=== PATIENT | female | born 1945 | race Caucasian/White ===

== ENCOUNTER 2023-03-18 09:48 | Outpatient (AMB) | payer OTHER, SELFPAY ==
--- NOTE | 2023-03-18 09:57 | A.OFFVIS_ITS ---
Intake Vital Signs 03/18/23 09:58 Height 5 ft 2 in Weight 245 lb BMI 44.8 BP 136/78 Blood Pressure Location Rt brachial Position Sitting Pulse 60 Pulse Source Pulse Oximeter Pulse Oximetry (%) 98 Oxygen Delivery Method Room Air Intake Visit Reasons: ENP-Tremor Hand-CONFIRMED Intake Note: Patient presents for hand tremors my neurologist retired and I needed a new one, my hands have tremors. Allergies codeine Allergy (Severe, Verified 03/18/23 10:02) Confusion Penicillins Allergy (Unknown, Verified 03/18/23 10:02) swelling tongue Sulfa (Sulfonamide Antibiotics) Allergy (Unknown, Verified 03/18/23 10:02) Unknown Medication List - Last Reconciled 03/18/23 by MARQUIS Lockett aripiprazole 5 mg PO DAILY aspirin 81 mg PO DAILY bumetanide 1 mg PO BID calcium carbonate (Pedro-Gest Antacid) mg PO cholecalciferol (vitamin D3) 50 mcg PO DAILY clopidogrel 75 mg PO DAILY esomeprazole magnesium 20 mg PO DAILY fluconazole mg PO metoprolol tartrate 25 mg PO BID mirabegron ER (Myrbetriq) 50 mg PO DAILY pantoprazole 40 mg PO BID rosuvastatin 5 mg PO DAILY sertraline 100 mg PO DAILY HPI HPI Comments History of Present Illness Details 78- yr-old female presents for new pt ev aluation of movement disorder, specifically: tremor. She has had LUE tremor and freezing for several years now. Was previously seen by Dr Boston before he retired. She has never tried medications for the tremor. PMH significant for: Darius shoulder surgery- unsure when, anemia, arthritis, cancer, depression, GERD, hypertension, kidney disease, knee surgery. Pt is right handed. ADL status: Ind w/ ADLs. Lives in [facility] living apartment in [place]. Has 3 local children. 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 Pt does her shopping/groceries online. Manges her bills ind. Fine-motor skills: Can have difficulty w/ smaller buttons. Pt reports: Micrographia: Writing can be shaky- not sure if smaller. Hypophonia: She has not noticed any changes, but her voice can be hoarse. Hyposmia: States no sense of smell for a long time Dysphagia: Her throat closes at times w/ fluids and solids- has had a swallow study- was told age-related. Has never done MASS SPEC. Drooling: None Orthostatic lightheadedness: Sometimes, brief GI/: She has a colostomy s/p colon surgery 18 yrs ago- forgets exactly why- something like diverticulitis. Has some urinary incontinence Slowness: Slower- walking. Freezing episodes: Left hand freezes at times Tremor: She has rest and action tremor- notices more when eating. Head shakes at times- more so if cold. Stiffness: Denies Gait changes: Has been using a walker x's the past 3-4 yrs d/t her back pain worsening. Used a cane. Sleep difficulty: Sleep maintenance difficulties, wakes up to void. Denies snoring. Can talk in her sleep, denies other parasomnias. Has never had a sleep study- does not want to ever use a CPAP machine. Memory impairment: She states she keeps forgetting- for instance, she knows she has another appointment today but does not remember what time that appt is. Can forget some ones name she just met- she used to be good at that. 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 Mood: Pt states her mood is stable- PCP manages her psych meds. Hallucinations: She may see someone standing to her side- tehn looks again and does not see anyone there. This started 3 months ago. Denies hypnogenic hallucinations. Usual exercise: Walking. Other patient concerns include: She has low back pain w/ sciatica into BLE- currently more right sided. Has a spinal stimulator- self-monitors. Used to see Dr Villafana- last saw him a few years ago. Uses tylenol prn but does not help. Avoids NSIADs d/t CKD and Clopidogrel tx (for PVD). Has occasional headaches and dizziness. History of brain MRI? Does not think so- thinks her spinal stimulator is not MRI compatible. History of concussion/head injury? Denies History of neuroleptic (metoclopramide/antipsychotics) use? Has been on Abilify for a long time - started d/t severe depression and SI. History of psychiatric hospitalizations? Yes- in her 40s. History of cancer: Right breast cancer- s/p lumpectomy- no chemo/Rx tx. History of occupational chemical exposures? 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 None Family history of mood disorder or suicide? None [facility] Medical History (Updated 03/18/23 @ 19:12 by MARQUIS Lockett) Vitamin D deficiency Vitamin B12 deficiency Recurrent major depression Pernicious anemia Peripheral nerve disease Mitral valvular regurgitation Lumbar spondylolysis Left bundle branch block HTN (hypertension) HLD (hyperlipidemia) H/O methicillin resistant Staphylococcus aureus Hearing loss Gout GERD (gastroesophageal reflux disease) Female stress incontinence Cyst of ovary COPD (chronic obstructive pulmonary disease) Chronic back pain Atherosclerosis of both carotid arteries Atherosclerosis of aorta Aortic valve disorder Anxiety Anemia of chronic disease Allergic rhinitis Surgical History (Updated 03/18/23 @ 18:13 by MARQUIS Lockett) History of ileostomy Hx of appendectomy H/O shoulder surgery H/O knee surgery Hx of cholecystectomy Family History (Updated 03/18/23 @ 10:04 by TAMI Grajeda) Father History of heart attack Mother Cancer Brother Brain cancer Social History (Updated 03/18/23 @ 10:04 by TAMI Grajeda) Alcohol intake: never Patient Tobacco Use Status: Never used Tobacco Review of Systems Const Details: Blurry vision, glasses Hearing loss, sinus problems, trouble swallowing Shortness of breath, hoarseness Itching Difficulty walking, weakness, occasional headaches, occasional dizziness Anxiety and depression Frequent urination, urinary incontinence Joint pain, back pain, leg cramping Physical Exam Vital Signs: Last Vital Signs Pulse 60 03/18/23 09:58 BP 136/78 03/18/23 09:58 Pulse Ox 98 03/18/23 09:58 Oxygen Delivery Method Room Air 03/18/23 09:58 BMI result Body Mass Index 44.8 Const General: cooperative and no acute distress Resp Effort & Inspection: normal respiratory effort and able to speak in complete sentences Neuro Other: General: A&O x's 3 w/ mild memory lapses. Expression: Decreased expression and blink, slight left facial droop Voice: Soft Tremor: LUE rest, BUE postural L > R mild tremor Tone: Very mild tightness in Darius elbows Dyskinesia: None FFM: BU, Left more so, decreased Foot taps: BLE decreased Gait: Slow to stand, uses hands to psuh self up, slight stoop, left shoulder drooped, very short steps w/ low floor clearance, cannot initiate turning w/o walker. With walker- slight stoop, but better steps, higher foot steps. Psych: Pleasant affect. Deep tendon reflexes (DTR's): Right triceps reflex intensity grade: 2+, Left triceps reflex intensity grade: 2+, Rt Biceps (C5, C6): 2+, Left biceps reflex intensity grade: 2+, Right brachioradialis reflex intensity grade: 2+, Left brachioradialis reflex intensity grade: 2+, Right patellar reflex intensity grade: 1+ and Left patellar reflex intensity grade: 1+ Psych Mental Status: mental status grossly normal Speech and movement: Normal speech and movement present Affect: normal affect Attitude: cooperative Thought process: Normal thought process present Results Reviewed Results Reviewed: 02/19/23 10:36 02/12/23 10/15/22 08/02/22 05/01/22 WBC 8.0 RBC 3.39 Hgb?10.3 Hct 31.9 MCV 94.1 MCH 30. MCHC 32.3 Platelet Count 215 RDW-SD 44.3 MPV 9.6 Nucleated RBC (Automated) 0.0 -CHEMISTRY Sodium 138 Potassium 4.6 Chloride 103 Bicarbonate Level 25 Anion Gap 10 Glucose Level 80 BUN 40 Creatinine-Blood?2.6 Estimated GFR Creatinine 19 Calcium 9.1 Phosphorus 3.5 Magnesium 2.0 Protein, Total 6.8 Albumin 4.2 AG Ratio 1.6 Alkaline Phosphatase 105 AST (SGOT)13 ALT (SGPT) 6 Bilirubin, Total 0.3 Uric Acid ?9.7 PTH, Intact 324 25 OH-Vitamin D Level 35 CRP 2.1 ESR 65 TSH 2.30 B12 441 cholesterol 150 Triglycerides 94 HDL 66 LDL 65 Non HDL 84 Folate > 40 Assessment & Plan Assessment & Plan (1) Movement disorder: Code(s): G25.9 - Extrapyramidal and movement disorder, unspecified (2) Tremor: Code(s): R25.1 - Tremor, unspecified (3) Hallucinations: Code(s): R44.3 - Hallucinations, unspecified (4) Memory difficulties: Code(s): R41.3 - Other amnesia (5) Gait difficulty: Code(s): R26.9 - Unspecified abnormalities of gait and mobility Plan Discussed that pt's constellation of tremor, gait changes, cognitive changes, hallucinations, do raise concern for a movement disorder, such as Parkinson's or a secondary Parkinsonism d/t chronic neuroleptic use and h/o psychiatric hospitalization or possibly a intracerebral CV injury w/in the basal ganglia, as pt has significant CV risk factors of HTN, HLD, artherosclerosis, PVD. Also reviewed that gait, cognitive, and urinary incontinence s/s may reflect an underlying NPH. Pt advised to undergo head CT as pt states her spinal stimulator is not MRI compatible- however, pt would like to wait at this time, as she has multiple upcoming medical appts/tests. Will initiate an order for baseline neuro-psych evaluation- as pt is concerned regarding her memory issues (note her has a dx of FTD)- pt agrees to do this. Reviewed recent labs- will check B12, folate, MMA, homocysteine- as previous B- 12 is low normal and pt has listed dx of b12 def/pernicious anemia although I do not see that she is currently on B-12 supplement. She is f/b cardiology and nephrology. She is not interested in trialing dopaminergic/tremor tx at this time. Continue to walk w/ walker. Pt asked to write down any questions she may have prior to the f/u appt. Future considerations- Sleep study- pt declines at this time, Etelvina, Orders: Orders Methylmalonic Acid 03/18/23 D51.0 - Vitamin B12 deficiency anemia due to intrinsic factor deficiency Vitamin B12 and Folate 03/18/23 D51.0 - Vitamin B12 deficiency anemia due to intrinsic factor deficiency Homocysteine 03/18/23 D51.0 - Vitamin B12 deficiency anemia due to intrinsic factor deficiency Referrals Neuropsychiatry Referral R41.3 - Other amnesia, R44.3 - Hallucinations, unspecified, G25.9 - Extrapyramidal and movement disorder, unspecified, F33.9 - Major depressive disorder, recurrent, unspecified Coding Level of Care Code New Pt Level 4 (28334) Diagnoses Movement disorder G25.9 Tremor R25.1 Hallucinations R44.3 Memory difficulties R41.3 Gait difficulty R26.9
[2023-03-18 09:58] VITALS: BP 136/78; PULSE 60; O2SAT 98; BMI 44.8
== END 2023-03-18 11:28 | disposition home or self-care (01) ==
PROVIDERS: PCP Internal Medicine; Visit Provider Nurse Practitioner Family
DX: G25.9 Extrapyramidal and movement disorder, unspecified (principal); R44.3 Hallucinations, unspecified; R41.3 Other amnesia; R26.9 Unspecified abnormalities of gait and mobility
CPT/HCPCS: 99204

== ENCOUNTER → 2023-03-18 09:48 | Outpatient (BNVA) | payer OTHER, SELFPAY | PROVIDERS: PCP Internal Medicine; Visit Provider Nurse Practitioner Family ==

== ENCOUNTER 2023-06-17 12:56 | Outpatient (AMB) | payer OTHER, SELFPAY ==
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
[2023-06-17 13:13] VITALS: BP 150/90; BMI 44.8
== END 2023-06-17 14:20 | disposition home or self-care (01) ==
PROVIDERS: PCP Internal Medicine; Visit Provider Nurse Practitioner Family
DX: G25.9 Extrapyramidal and movement disorder, unspecified (principal); R26.9 Unspecified abnormalities of gait and mobility; R41.3 Other amnesia; D64.9 Anemia, unspecified
CPT/HCPCS: 99214; G2211

== ENCOUNTER 2023-06-17 12:56 | Outpatient (REF) | payer OTHER, SELFPAY ==
[2023-06-17 16:57] LABS: MANUAL DIFF FLAG NO
[2023-06-17 16:59] LABS: Basophils Absolute Auto 0.1 X10*3/uL (0.0-0.2); Basophils Percent Auto 1.3 % (0-2); Eosinophils Absolute Auto 0.5 X10*3/uL (0.0-0.4); Eosinophils Percent Auto 8.2 % (0-4); Hematocrit 33.5 % (37.0-47.0); Hemoglobin 11.1 g/dl (12.0-16.0); Imm Gran Abs Auto 0.01 X10*3/uL (0.00-0.03); Imm Gran Pct Auto 0.2 % (0.0-0.4); Lymphocytes Absolute Auto 1.2 X10*3/uL (1.2-4.9); Lymphocytes Percent Auto 19.1 % (20-40); Mean Corpuscular HGB Conc 33.1 g/dl (31.0-35.0); Mean Corpuscular Hemoglobin 30.7 pg (27.0-33.0); Mean Corpuscular Volume 92.5 fL (80.0-98.0); Mean Platelet Volume 8.7 fL (9.4-12.3); Monocytes Absolute Auto 0.4 X10*3/uL (0.1-1.2); Monocytes Percent Auto 6.5 % (2-11); Neutrophils Absolute Auto 3.9 x10*3/uL (2.0-8.3); Neutrophils Percent Auto 64.7 % (45-73); Platelet Count 218 X10*3/uL (160-400); Red Blood Count 3.62 X10*6/uL (4.20-5.50); Red Cell Distribution Width 13.3 % (11.0-16.0)
[2023-06-17 17:29] LABS: Alanine Aminotransferase < 5 U/L (0-31); Albumin Level 4.3 g/dL (3.5-5.0); Alkaline Phosphatase 121 U/L (39-117); Anion Gap 17 (12-20); Aspartate Amino Transferase 15 U/L (5-31); Bilirubin Total 0.4 mg/dL (0.0-1.0); Blood Urea Nitrogen 39 mg/dL (9-16); Calcium 10.2 mg/dL (8.4-10.2); Carbon Dioxide 22 mmol/L (22-29); Chloride 102 mmol/L (96-108); Estimated Glomerular Filt Rate 21; Glucose Random 95 mg/dL (60-115); Iron 69 mcg/dL (30-160); Magnesium 2.1 mg/dL (1.6-2.6); Percent Iron Saturation 25 % (15-50); Potassium 4.3 mmol/L (3.3-5.1); Sodium 137 mmol/L (135-145); Total Iron Binding Capacity 281 mcg/dL (228-428); Total Protein 7.9 g/dL (6.5-8.0); Unsaturated Iron Binding 212 ug/dL
[2023-06-17 17:43] LABS: Ferritin 161 ng/mL (10-250)
[2023-06-17 17:56] LABS: Folate 15.6 ng/mL (> or = 4.0); Vitamin B12 470 pg/mL (200-900)
[2023-06-20 05:29] LABS: Methylmalonic Acid 278 nmol/L (87-318)
== END 2023-06-17 12:57 | disposition home or self-care (01) ==
LOC: HO.HKASLDS 12:56
PROVIDERS: PCP Internal Medicine; Visit Provider Nurse Practitioner Family
DX: D51.0 Vitamin B12 deficiency anemia due to intrinsic factor deficiency (principal); D64.9 Anemia, unspecified; R25.2 Cramp and spasm
CPT/HCPCS: 36415; 80053; 82550; 82607; 82728; 82746; 83540; 83735; 83921; 85025

== ENCOUNTER 2024-02-24 09:58 | Outpatient (AMB) | payer OTHER, SELFPAY ==
[2024-02-24 10:18] VITALS: PULSE 86; O2SAT 97; BMI 45.5
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
== END 2024-02-24 11:21 | disposition home or self-care (01) ==
PROVIDERS: PCP Internal Medicine; Visit Provider Nurse Practitioner Family
DX: G25.9 Extrapyramidal and movement disorder, unspecified (principal); R26.9 Unspecified abnormalities of gait and mobility; R41.3 Other amnesia; D64.9 Anemia, unspecified
CPT/HCPCS: 99214; G2211

== ENCOUNTER 2024-07-06 12:49 | Outpatient (AMB) | payer OTHER, SELFPAY ==
--- NOTE | 2024-07-06 12:51 | MHC.OFFVIS ---
Vital Signs 07/06/24 12:56 Height 5 ft 2 in Weight 249 lb BMI 45.5 BP 140/72 H Blood Pressure Location Rt brachial Position Sitting Pulse 76 Pulse Source Pulse Oximeter Pulse Oximetry (%) 97 Oxygen Delivery Method Room Air Intake Visit Reasons: 6 mo follow up Intake Note: Patient presents for follow up meed adjustment carbidopa levodopa Allergies codeine Allergy (Severe, Verified 07/06/24 12:57) Confusion Penicillins Allergy (Unknown, Verified 07/06/24 12:57) swelling tongue Sulfa (Sulfonamide Antibiotics) Allergy (Unknown, Verified 07/06/24 12:57) Unknown Medication List - Last Reconciled 07/06/24 by MARQUIS Lockett allopurinol 400 mg PO DAILY aripiprazole 5 mg PO DAILY aspirin 81 mg PO DAILY bumetanide 1 mg PO BID calcium carbonate (Pedro-Gest Antacid) mg PO carbidopa-levodopa 25-100 mg 1.5 tabs PO TID 30 days cholecalciferol (vitamin D3) 50 mcg PO DAILY clopidogrel 75 mg PO DAILY cyanocobalamin (vitamin B-12) 100 mcg PO DAILY 90 days hydroxyzine HCl 10 mg PO BEDTIME PRN magnesium oxide 200 mg PO DAILY metoprolol tartrate 50 mg PO BID mirabegron ER (Myrbetriq) 50 mg PO DAILY pantoprazole 40 mg PO BID rosuvastatin 5 mg PO DAILY sertraline 100 mg PO DAILY torsemide 20 mg PO BID HPI Comments Details: 79-yr-old female presents for f/u visit of movement d/o. Pt reports she broke her right foot 2 weeks ago at her dentist's office. States she was standing up after toileting, pulling up her pants, when all of a sudden she lost full control of her legs and they just gave out, she tried to prevent herself from falling by grabbing the grab bars but she could not hold on, and just fell. She required assist from the dental staff to get up. She went home via her transportation and then went to [facility]. She was given a walking shoe and advised to f/u with her ortho. Initially she was using her w/c more. She states ortho advised her to continue using the walking shoe and start walking w/ her walker again. Taking CD-LD IR 25-100mg 1.5 tabs po 3 x's per day since last visit (increased from 1 tab t.i.d.), which she feels helped some. ADL's: Ind but slower. She has a SUPERVISOR ABATTOIR twice a week, who helps w/ home care. Swallowing: Continues to have difficulty swallowing, states cannot eat for long before her throat closes up on her- she is still waiting to have a f/u MBS through GI, [facility]/Dr Duckworth. Voice: Hoarseness- ENT felt this was r/t h/o lung resection. Drooling: Denies Orthostatic lightheadedness: Sometimes, usually brief. Taking 4 20oz bottles of water per day. Constipation: Has an ostomy Urinary symptoms: urinary frequency- thinks it is a bit more, so she is prone to skipping her diuretic tx. Tremor: Tremor is a bit better. Dyskinesia: States her LLE will jump on its own, but had BLE involuntary leg movements at night. Stiffness: Denies stiffness. Legs can cramp/tighten when elevating them, resolves with putting her legs down. Gait changes: States her gait varies- some days better than others, still affected by her BLE edema- using a BLE compression device but she is not sure it helps. Maybe prone totrip on her own feet but not fall. She is f/b pulmonology/cardiology. Uses a walker. Seated walker was not helpful. Freezing: Denies Falls: Denies any other interval falls. Mood: Ok Hallucinations: Is now seeing things that are not there which is freaking me out - sees people, a horse- now during the night and day. Memory: Feels memory is not good- feels forgetful. She previously had neuropsych eval, which did show cognitive deficits that did not meet criteria for a major neurocognitive d/o, though possibility was raised that her presentation could be seen in Parkinsonian d/o's. Sleep: Sleeping is worse, sleeping 1-2 hours and then up for 1-2 hours. Overall states not sleeping > 2-3 hours. Denies daytime naps. Exercise: None. Still walking to the dining room, to the mailroom. Other: The other day, she had an isolated sensation of Right leg feeling like it was in a knot and then jsut let go (did not last long), while sitting w/ legs elevated in the evening. [facility] Medical History Vitamin D deficiency Vitamin B12 deficiency Recurrent major depression Pernicious anemia Peripheral nerve disease Mitral valvular regurgitation Lumbar spondylolysis Left bundle branch block HTN (hypertension) HLD (hyperlipidemia) H/O methicillin resistant Staphylococcus aureus Hearing loss Gout GERD (gastroesophageal reflux disease) Female stress incontinence Cyst of ovary COPD (chronic obstructive pulmonary disease) Chronic back pain Atherosclerosis of both carotid arteries Atherosclerosis of aorta Aortic valve disorder Anxiety Anemia of chronic disease Allergic rhinitis Surgical History History of ileostomy Hx of appendectomy H/O shoulder surgery H/O knee surgery Hx of cholecystectomy Family History Father History of heart attack Mother Cancer Brother Brain cancer Social History Alcohol intake: never Patient Tobacco Use Status: Never used Tobacco Physical Exam Vital Signs: Last Vital Signs Pulse 76 07/06/24 12:56 BP 140/72 H 07/06/24 12:56 Pulse Ox 97 07/06/24 12:56 Oxygen Delivery Method Room Air 07/06/24 12:56 BMI result Body Mass Index 45.5 Const General: cooperative and no acute distress Resp Effort & Inspection: normal respiratory effort and able to speak in complete sentences Neuro Other: General: A&O x's 3 Expression: Slightly improved decreased expression and blink, slight left facial droop Voice: Soft, hoarse Tremor: No LUE rest tremor today. BUE postural L > R mild tremor Tone: NVery mild LUE tone today Dyskinesia: Mild LLE intermittent dyskinesia FFM: BUE decreased, Left more so, Foot taps: LLE bradykineisa- improved today. Did not assess RLE d/t recent foot Fx. Gait: Slow to stand, uses hands to push self up, slight stoop, left shoulder drooped, short steps with low floor clearance with walker. Psych: Pleasant affect. Assessment & Plan Assessment & Plan (1) Movement disorder: Code(s): G25.9 - Extrapyramidal and movement disorder, unspecified Category: Medical (2) Muscle cramps: Code(s): R25.2 - Cramp and spasm Category: Medical (3) Tremor: Code(s): R25.1 - Tremor, unspecified Category: Medical (4) Gait difficulty: Code(s): R26.9 - Unspecified abnormalities of gait and mobility Category: Medical (5) Memory difficulties: Code(s): R41.3 - Other amnesia Category: Medical Plan Patient has had a positive response to levodopa therapy. This may be seen in idiopathic Parkinson's disease. But we may see benefit in neuroleptic-induced parkinsonism as well. Patient is not interested in undergoing head CT or a DaTSCAN at this time. We will continue to monitor clinically. Concur w/ f/u MBS. F/u w/ ENT as scheduled. Follow-up with cardiology and nephrology as scheduled. Reviewed neuro-psych report- no current indications of a major neurocognitive disorder, consider follow-up testing in next 12-18 months. (note her has a dx of FTD). Continue vitamin B12 supplementation. Stop carbidopa levodopa 25-100 mg- 1.5 tabs TID- as patient having lower extremity dyskinesias and increased hallucinations- both of which are bothersome to her. Start carbidopa levodopa ER 25-100 mg- 2 tabs prior to breakfast and 1 tab prior to both lunch and dinner. Continue to walk w/ walker. Previously discussed strategies to reduce risk for falls- step in place and stand up slowly, when turning- turn upper and lower body together, use adaptive equipment such as long handled brooms/mops/dustpan or plates/utensils that can reduce risk for spillage. Future considerations- Sleep study- pt has previously declined, CT head, DaTscan, Medications: New carbidopa-levodopa 25-100 mg ER 2 tabs before breakfast, and 1 tab before lunch and dinner. orally 30 minutes before meal/protein.; 120 tabs 6RF 30 days Discontinued carbidopa-levodopa 25-100 mg take w/ a cracker 30 minutes before breakfast, lunch, and dinner, Discontinued Reason: Doctor's Order 1.5 tabs PO TID 30 days 135 tabs 6RF Coding Level of Care Code Est Pt Level 4 (18816) Diagnoses Movement disorder G25.9 Muscle cramps R25.2 Tremor R25.1 Gait difficulty R26.9 Memory difficulties R41.3
[2024-07-06 12:56] VITALS: BP 140/72; PULSE 76; O2SAT 97; BMI 45.5
--- OUTSIDE RECORDS SUMMARY | 2024-07-06 13:28 | XMS_ITS ---
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 Past Plans ONCOLOGY INFUSION THERAPY Plan Name Start Date Discontinue Date Treatment Medications Discontinue Reason Plan Provider [facility] DENOSUMAB 60MG (PROLIA) 04/11/2022 11/02/2023 denosumab (PROLIA) Therapy Complete Lauri Lovett MD Radiation Treatments * No radiation treatments are documented for this patient in [facility]. Treatments may have been administered in another system.
--- OUTSIDE RECORDS SUMMARY | 2024-07-06 13:28 | XMS_ITS | Clinical Summary ---
Author Organization [facility] Address [address] [place] [address] Care Team Providers Care Dye Penetrant Testing Technician Name Role Phone Emma Lanza MD Primary Care Provide r Allergies Active Allergy Reactions Criticality Noted Date Comments Flurbiprofen 03/03/2019 Codeine 03/03/2019 Latex 03/03/2019 Penicillins 03/03/2019 Sulfate 03/03/2019 Vancomycin 03/03/2019 Medications Medication Sig Dispensed Refills Start Date End Date Status gabapentin (NEURONTIN) 300 MG capsule Take 300 mg by mouth 3 (three) times a day. 0 Active gabapentin (NEURONTIN) 100 MG capsule Take 100 mg by mouth 3 (three) times a day. 0 Active omeprazole (PriLOSEC) 20 MG capsule Take 20 mg by mouth daily. 0 Active Cetirizine HCl 10 MG CAPS Take 10 mg by mouth. 0 Active ARIPiprazole (ABILIFY) 5 MG tablet Take 1 tablet (5 mg total) by mouth daily. 2.5mg daily 0 Active Cholecalciferol 125 MCG (5000 UT) capsule Take 5,000 Units by mouth daily. 0 Active DULoxetine (CYMBALTA) DR capsule 60 mg Take 60 mg by mouth daily. 0 Active metoprolol tartrate (LOPRESSOR) 25 MG tablet Take 1 tablet (25 mg total) by mouth 2 (two) times a day. 0 Active pantoprazole (PROTONIX) 40 MG tablet Take 1 tablet (40 mg total) by mouth every morning on an empty stomach. 0 Active aspirin EC 81 MG tablet Take 1 tablet (81 mg total) by mouth daily. 0 Active torsemide (DEMADEX) 20 MG tablet Take 20 mg by mouth daily. 0 Active ferrous sulfate 325 (65 FE) MG tablet Take 325 mg by mouth every morning with breakfast. 0 Active Multiple Vitamins-Minerals (PRESERVISION AREDS 2) CAPS Take by mouth. 0 Active oxyCODONE (ROXICODONE) 5 MG immediate release tablet Take 1 tablet (5 mg total) by mouth every 4 (four) hours as needed for pain. 0 Active allopurinol (ZYLOPRIM) 100 MG tablet Take 1 tablet (100 mg total) by mouth daily. 0 Active potassium bicarb-citric acid 20 MEQ TBEF Take by mouth. 0 Active furosemide (LASIX) 20 MG tablet Take 20 mg by mouth 2 (two) times a day. 0 Active sucralfate (CARAFATE) 1 g tablet Take 1 tablet (1 g total) by mouth 2 (two) times a day. 0 Active sodium chloride 1 g tablet Take 1 g by mouth 3 (three) times a day. 0 Active bumetanide (BUMEX) 1 MG tablet Take 1 tablet (1 mg total) by mouth daily. 0 Active rosuvastatin (CRESTOR) tablet 5 mg Take 1 tablet (5 mg total) by mouth daily. 0 Active sertraline (ZOLOFT) 50 MG tablet Take 1 tablet (50 mg total) by mouth daily. 0 Active magnesium oxide 400 (240 Mg) MG TABS tablet Take 1 tablet (400 mg total) by mouth 2 (two) times a day. 0 Active Fluticasone-Umeclidin- Vilant (Trelegy Ellipta) 100-62.5-25 MCG/ACT AEPB Trelegy Ellipta 0 Active Mirabegron ER (Myrbetriq) 50 MG TB24 Take by mouth daily. 0 Active clopidogrel (PLAVIX) 75 MG tablet Take 1 tablet (75 mg total) by mouth daily. 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) 03/06/2019 Social History Tobacco Use Types Packs/Day Years Used Date Smoking Tobacco: Never Assessed Sex and Gender Information Value Date Recorded Sex Assigned at Female 10/07/2022 4:42 PM EDT Gender Identity Not on file Sexual Orientation Not on file Job Start Date Occupation Industry Not on file Not on file Not on file Last Filed Vital Signs Vital Sign Reading Time Taken Comments Blood Pressure 131/48 04/15/2023 11:31 AM EST Pulse 60 04/15/2023 11:31 AM EST Temperature 36.4 ??C (97.5 ??F) 04/15/2023 1 1:31 AM EST Respiratory Rate - - Oxygen Saturation 98% 04/15/2023 11: 31 AM EST Inhaled Oxygen Concentration - - Weight 107.2 kg (236 lb 6.4 oz) 024 11:31 AM EST Height 157.5 cm (5' 2 ) 04/15/2023 11:3 1 AM EST Body Mass Index 43.24 04/15/2023 11:31 AM EST Plan of Treatment Health Maintenance Due Date Last Done Comments Hepatitis C Screening 1945 Depression Screening 1958 BMI Counseling 01/10/1964 Preventative Health Evaluation 01/10/1964 DTap / Tdap / Td (1 - Tdap) 1965 Shingrix-Zoster Vaccine (1 of 2) 1965 Fall Risk Assessment 2011 Osteoporosis Screening (DEXA Scan) 2011 RSV Adult > 60+ Yrs or (1 - 1-dose 75+ series) 2021 COVID-19 Vaccine ( season) 2023 12/24/2020, 03/20/2020, 02/28/2020 Influenza Vaccine (#1) 2023 , 11/16/2018, 11/11/2018, Additional history exists Pneumococcal Vaccine Completed 10/27/2017, 07/17/2015, 11/05/2014, Additional history exists Hepatitis B Vaccines Aged Out No long er eligible based on patient's age to complete this topic RSV Ped < 20 months Aged Out No longe r eligible based on patient's age to complete this topic Care Teams Dye Penetrant Testing Technician Relationship Specialty Start Date End Date Emma Lanza MD PCP - General Internal Medicine 03/03/19
--- OUTSIDE RECORDS SUMMARY | 2024-07-06 13:28 | XMS_ITS | Clinical Summary ---
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 Out No long er eligible based on patient's age to complete this topic IPV Vaccines Aged Out No longer eligi ble based on patient's age to complete this topic MMR Vaccines Aged Out No longer eligi ble based on patient's age to complete this topic Meningococcal ACWY Vaccine Aged Out N o longer eligible based on patient's age to complete this topic Meningococcal B Vaccine Aged Out No l onger eligible based on patient's age to complete this topic RSV Immunization Patients Under 20 months Aged Out No longer eligible based on patient's age to complete this topic Varicella Vaccines Aged Out No longer eligible based on patient's age to complete this topic Medical Devices Implanted Type Area Latin Professor Device Identifier Shelf Expiration Date Model / Serial / Lot Implants Implants N/A: Back Implants Implants Left: Hip Joints Knee Joints Knee Bilateral : Knee Procedures Procedure Name Priority Date/Time Associated Diagnosis Comments ECG 12-LEAD Routine 07/06/2024 8:27 AM EDT Left bundle branch block (LBBB) SST - GOLD Routine 06/24/2024 5:43 AM EDT EXTRA TUBES Routine 06/24/2024 5:43 AM EDT CBC WITH AUTO DIFFERENTIAL Routine 06/24/2024 5:43 AM EDT ACTIVATED PARTIAL THROMBOPLASTIN TIME Routine 06/24/2024 5:43 AM EDT CBC AND DIFFERENTIAL Routine 06/24/2024 5:43 AM EDT PROTHROMBIN TIME WITH INR Routine 06/24/2024 4:35 AM EDT BASIC METABOLIC PANEL Routine 06/24/2024 4:35 AM EDT COMPLETE BLOOD COUNT STAT 06/23/2024 5:38 PM EDT COMPLETE BLOOD COUNT Timed 06/23/2024 12:[address] ABDOMEN PELVIS WO CONTRAST Routine 06/23/2024 12:02 PM EDT BASIC METABOLIC PANEL Routine 06/23/2024 5:51 AM EDT COMPLETE BLOOD COUNT Timed 06/23/2024 5:51 AM EDT COMPLETE BLOOD COUNT Timed 06/22/2024 11:54 PM EDT COMPLETE BLOOD COUNT Timed 06/22/2024 5:38 PM EDT CREATININE, SERUM Routine 06/22/2024 10:52 AM EDT CBC WITH AUTO DIFFERENTIAL Timed 06/22/2024 10:51 AM EDT CBC AND DIFFERENTIAL Timed 06/22/2024 10:51 AM EDT TISSUE EXAM Routine 06/22/2024 9:31 AM EDT Postmenopausal bleeding Endometrial thickening on ultrasound TH AN LMA(NO CHARGE) Routine 06/22/2024 9:00 AM EDT CA CYSTOURETHROSCOPY 06/22/2024 8:36 AM EDT Postmenopausal bleeding Endometrial thickening on ultrasound Asymptomatic microscopic hematuria Special Needs 75 minutes CA HYSTEROSCOPY W/BIOPSY ENDOMETRIUM AND/OR POLYPECTOMY W/O AND/OR W/D&C 06/22/2024 8:36 AM EDT Postmenopausal bleeding Endometrial thickening on ultrasound Asymptomatic microscopic hematuria Special Needs 75 minutes ANTIBODY IDENTIFICATION Routine 06/23/19 25 7:43 AM EDT Postmenopausal bleeding Endometrial thickening on ultrasound CBC WITH AUTO DIFFERENTIAL Routine 06/22/2024 7:43 AM EDT Postmenopausal bleeding Endometrial thickening on ultrasound TYPE AND SCREEN Routine 06/22/2024 7:43 AM EDT Postmenopausal bleeding Endometrial thickening on ultrasound CBC AND DIFFERENTIAL Routine 06/22/2024 7:43 AM EDT Postmenopausal bleeding Endometrial thickening on ultrasound CA ENDOMETRIAL SAMPLING W/WO ENDOCERVICAL SAMPLING W/O CERVICAL DILATION Routine 06/10/2024 12:50 AM EDT Post-menopausal bleeding MARTELL URINE CULTURE TUBE Routine 05/24/19 11:52 AM EDT Hematuria, unspecified type URINALYSIS WITH REFLEX MICROSCOPIC AND CULTURE Routine 05/23/2024 11:52 AM EDT Hematuria, unspecified type URINALYSIS WITH REFLEX MICROSCOPIC AND CULTURE Routine 05/23/2024 11:52 AM EDT Hematuria, unspecified type TISSUE EXAM Routine 05/23/2024 11:50 AM EDT Post-menopausal bleeding VAS US DUPLEX CAROTID BILATERAL Routine 05/11/2024 12:53 PM EDT Asymptomatic bilateral carotid artery stenosis HISTORICAL IMAGING SCAN RESULT 04/27/2024 TRANSTHORACIC ECHOCARDIOGRAM (TTE) COMPLETE Routine 04/25/2024 12:53 PM EDT Chronic heart failure with preserved ejection fraction (CMS/HCC V24, CMS/HCC V28) Pulmonary hypertension (CMS/HCC V24, CMS/HCC V28) from Last 3 Months Results * ECG 12 lead (07/06/2024 8:27 AM EDT) us Kaley Duque NP ECG ORDERABLES Final Result GEMUSE * SST tube (06/24/2024 5:43 AM EDT) Extra Tube Hold for add-ons. 06/24/2024 8:01 AM EDT [facility] ([facility] Comment:Auto resulted. Blood Venous blood specimen / Unknown 06/24/2024 5:43 AM EDT 06/24/2024 7:00 AM EDT us Jeanne Gonzales MD LAB BLOOD ORDERABLES Final Resul t [facility] [address] [place] [address], [place] [phone] * (ABNORMAL) CBC auto differential (06/24/2024 5:43 AM EDT) Only the most recent of3 resultswithin the time period is included. WBC 8.3 4.8 - 10.8 K/mcL LAB HEMETOLOGY METHOD 06/24/2024 7:11 AM EDT [facility] RBC 2.60(L) 3.80 - 4.80 M/mcL LAB HEMETOLOGY METHOD 06/24/2024 7:11 AM [facility] Hemoglobin 8.3(L) 11.5 - 16.0 g/dL LAB HEMETOLOGY METHOD 06/24/2024 7:11 AM [facility] Hematocrit 25.3(L) 35.0 - 47.0 % LAB HEMETOLOGY METHOD 06/24/2024 7:11 AM EDT [facility] MCV 97.3 79.0 - 98.0 FL LAB HEMETOLOGY METHOD 06/24/2024 7:11 AM EDT [facility] MCH 31.9 27.0 - 32.0 pcg LAB HEMETOLOGY METHOD 06/24/[facility]24 7:[facility] MCHC 32.8 32.0 - 37.0 g/dL LAB HEMETOLOGY METHOD 06/24/2024 7:11 AM [facility] RDW 14.6 11.0 - 15.0 % LAB HEMETOLOGY METHOD 06/24/2024 7:11 AM [facility] Platelets 182 130 - 400 K/mcL LAB HEMETOLOGY METHOD 06/24/2024 7:11 AM [facility] MPV 9.0 7.0 - 11.0 FL LAB HEMETOLOGY METHOD 06/24/2024 7:11 AM [facility] NRBC 0.0 <1.0 % LAB HEMETOLOGY METHOD 06/24/2024 7:11 AM [facility] NRBC Absolute 0.00 <0.10 K/mcL LAB HEMETOLOGY METHOD 06/24/2024 7:11 AM [facility] Neutrophils Relative 72.9 % LAB HEMETOLOGY METHOD 06/24/2024 7:11 AM [facility] Lymphocytes Relative 14.0 % LAB HEMETOLOGY METHOD 06/24/2024 7:11 AM [facility] Monocytes Relative 7.1 % LAB HEMETOLOGY METHOD 06/24/2024 7:11 AM [facility] Eosinophils Relative 4.8 % LAB HEMETOLOGY METHOD 06/24/2024 7:11 AM [facility] Basophils Relative 0.7 % LAB HEMETOLOGY METHOD 06/24/2024 7:11 AM [facility] Immature Granulocytes Relative 0.5 % LAB HEMETOLOGY METHOD 06/24/2024 7:11 AM [facility] Neutrophils Absolute 6.02 1.50 - 7.00 K/mcL LAB HEMETOLOGY METHOD 06/24/2024 7:11 AM [facility] Lymphocytes Absolute 1.16 1.00 - 5.00 K/mcL LAB HEMETOLOGY METHOD 06/24/2024 7:11 AM [facility] Monocytes Absolute 0.59 0.20 - 1.00 K/mcL LAB HEMETOLOGY METHOD 06/24/2024 7:11 AM [facility] Eosinophils Absolute 0.40 0.00 - 0.50 K/mcL LAB HEMETOLOGY METHOD 06/24/2024 7:11 AM EDT [facility] Basophils Absolute 0.06 0.00 - 0.20 K/[facility] LAB HEMETOLOGY METHOD 06/24/2024 7:11 AM EDT [facility] Immature Granulocytes Absolute 0.04(H) 0.00 - 0.03 K/[facility] LAB HEMETOLOGY METHOD 06/24/2024 7:11 AM EDT [facility] Blood Venous blood specimen / Unknown Venipuncture / Unknown 06/24/2024 5:43 AM EDT 06/24/2024 6:59 AM EDT Radha DANIELS LAB BLOOD ORDERABLES Final Res ult Performing Organization Address [facility]/ZIP Co de Phone Number [facility] [address] [place] [address], [place] [phone] * Activated partial thromboplastin time (06/24/2024 5:43 AM EDT) aPTT 28.7 24.1 - 39.3 sec LAB COAGULATION METHOD 06/24/2024 7:33 AM EDT [facility] Blood Venous blood specimen / Unknown Venipuncture / Unknown 06/24/2024 5:43 AM EDT 06/24/2024 7:00 AM EDT Radha DANIELS LAB BLOOD ORDERABLES Final Res ult [facility] [address] [place] [address], [place] [phone] * Prothrombin time with INR (06/24/2024 4:35 AM EDT) Protime 12.0 10.6 - 13.9 sec LAB COAGULATION METHOD 06/24/2024 5:13 AM EDT [facility] INR 1.0 LAB COAGULATION METHOD 06/24/2024 5:13 AM T [facility] Blood Venous blood specimen / Unknown Venipuncture / Unknown 06/24/2024 4:35 AM EDT 06/24/2024 4:48 AM EDT us Radha DANIELS LAB BLOOD ORDERABLES Final Res ult [facility] [address] [place] [address], [place] [phone] * (ABNORMAL) Basic metabolic panel (06/24/2024 4:35 AM EDT) Only the most recent of2 resultswithin the time period is included. Sodium 132(L) 133 - 145 mmol/L LAB CHEMISTRY METHOD 06/24/2024 5:12 AM [facility] Potassium 4.0 3.5 - 5.5 mmol/L LAB CHEMISTRY METHOD 06/24/2024 5:12 AM [facility] Chloride 104 96 - 110 mmol/L LAB CHEMISTRY METHOD 06/24/2024 5:12 AM [facility] CO2 22 21 - 32 mmol/L LAB CHEMISTRY METHOD 06/24/2024 5:12 AM [facility] Anion Gap 6 3 - 11 LAB CHEMISTRY METHOD 06/24/2024 5:12 AM [facility] Glucose 89 70 - 100 mg/dL LAB CHEMISTRY METHOD 06/24/2024 5:12 AM [facility] BUN 34(H) 5 - 25 mg/dL LAB CHEMISTRY METHOD 06/24/2024 5:12 AM [facility] Creatinine 1.98(H) 0.50 - 1.10 mg/dL LAB CHEMISTRY METHOD 06/24/2024 5:12 AM [facility] eGFR 25(L) >=60 mL/min/1. 73m2 LAB CHEMISTRY METHOD 06/24/2024 5:12 AM EDT [facility] Comment:Calculation based on the Chronic Kidney Disease Epidemiology Collaboration (CKD-EPI) equation refit without adjustment for race. BUN/Creatinine Ratio 17.2 LAB CHEMISTRY METHOD 06/24/2024 5:12 AM EDT [facility] Calcium 8.8 8.5 - 10.5 mg/dL LAB CHEMISTRY METHOD 06/24/2024 5:12 AM EDT [facility] Blood Venous blood specimen / Unknown Venipuncture / Unknown 06/24/2024 4:35 AM EDT 06/24/2024 4:48 AM EDT us Radha DANIELS LAB BLOOD ORDERABLES Final Res ult [facility] [address] [place] [address], * (ABNORMAL) Complete blood count (06/23/2024 5:38 PM EDT) Only the most recent of5 resultswithin the time period is included. WBC 7.3 4.8 - 10.8 K/mcL LAB HEMETOLOGY METHOD 06/23/2024 6:05 PM [facility] RBC 2.50(L) 3.80 - 4.80 M/mcL LAB HEMETOLOGY METHOD 06/23/2024 6:05 PM [facility] Hemoglobin 7.8(L) 11.5 - 16.0 g/dL LAB HEMETOLOGY METHOD 06/23/2024 6:05 PM [facility] Hematocrit 24.6(L) 35.0 - 47.0 % LAB HEMETOLOGY METHOD 06/23/2024 6:05 PM [facility] MCV 96.9 79.0 - 98.0 FL LAB HEMETOLOGY METHOD 06/23/2024 6:05 PM [facility] MCH 30.7 27.0 - 32.0 pcg LAB HEMETOLOGY METHOD 06/23/2024 6:05 PM EDT [facility] MCHC 31.7(L) 32.0 - 37.0 g/dL LAB HEMETOLOGY METHOD 06/23/2024 6:05 PM EDT [facility] RDW 14.7 11.0 - 15.0 % LAB HEMETOLOGY METHOD 06/23/2024 6:05 PM EDT [facility] Platelets 168 130 - 400 K/mcL LAB HEMETOLOGY METHOD 06/23/2024 6:05 PM EDT [facility] MPV 8.9 7.0 - 11.0 FL LAB HEMETOLOGY METHOD 06/23/2024 6:05 PM EDT [facility] NRBC 0.0 <1.0 % LAB HEMETOLOGY METHOD 06/23/2024 6:05 PM EDT [facility] NRBC Absolute 0.00 <0.10 K/mcL LAB HEMETOLOGY METHOD 06/23/2024 6:05 PM EDT [facility] Blood Venous blood specimen / Unknown Venipuncture / Unknown 06/23/2024 5:38 PM EDT 06/23/2024 6:00 PM EDT us Radha DANIELS LAB BLOOD ORDERABLES Final Res ult [facility] [address] [place] [address], [place] [phone] * CT Abdomen Pelvis wo Contrast (06/23/2024 12:02 PM EDT) Anatomical Region Laterality Modality Body Computed Tomogra phy 06/23/2024 12:1 5 PM EDT Impressions 06/23/2024 12:24 PM EDT Limited examination the absence of IV/oral contrast. Inflammatory change and tiny locules of gas at the uterine fundus compatible with given history of uterine perforation. ??There are small bowel loops that ??course in this vicinity, but there is no gross pneumoperitoneum or fluid collection. ??Bowel injury cannot be unequivocally excluded on the basis of this examination alone. ??Recommend close clinical observation and repeat imaging if indicated. -------- FINAL REPORT -------- Dictated By: Esmer Smyth Dictated Date: 06/23/2024 12:15 ET Assigned Physician: Esmer Smyth Reviewed and Electronically Signed By: Esmer Smyth Signed Date: 06/23/2024 12:24 ET Workstation ID: [id number] Transcribed By: Self Edit Transcribed Date: 06/23/2024 12:15 ET Narrative 06/23/2024 12:24 PM EDT PROCEDURE: CT Abdomen and Pelvis without contrast INDICATION: R/o bowel injury s/p hysteroscopy with suspected uterine perforation TECHNIQUE: CT of the abdomen and pelvis without contrast. Multiplanar reformats. The examination was performed utilizing dose reduction techniques. DLP: 1205 mGy/cm COMPARISON: ??No priors available. FINDINGS: ?? LOWER THORAX: Left pleural thickening no consolidation HEPATOBILIARY: No focal liver lesions. Mild biliary dilatation setting of prior cholecystectomy. SPLEEN: Splenectomy. PANCREAS: No focal mass or ductal dilatation. ADRENALS: No nodules. KIDNEYS/URETERS: Exophytic cysts right kidney punctate nonobstructing calculus lower pole of the right kidney. PELVIC ORGANS/BLADDER: Right adnexal cyst. ??There is inflammatory change and locules of gas near the fundus. ??Multiple small bowel loops course in this vicinity without wall thickening or fluid collection. ??Limited examination due to streak artifact from left hip arthroplasty. PERITONEUM / RETROPERITONEUM: There are reactive nodes near the iliac bifurcation and adjacent to the uterine fundus. VESSELS: Scattered atherosclerotic calcifications throughout the aorta and its major branches. No aneurysm. ??IVC filter with tines outside vena cava. GI TRACT: No bowel obstruction. ??Prior colectomy with left lower quadrant ileostomy. ??Limited evaluation of the pelvis due to left hip arthroplasty hardware. BONES AND SOFT TISSUES: Osteopenia with scoliosis and significant degenerative changes. ??Left hip arthroplasty. ??Remote rib deformities. Generator in the left flank soft tissues with stimulator leads noted. ??Small fat-containing parastomal hernia on the left. ??There is marked atrophy throughout with asymmetric atrophy of the left psoas and iliacus musculature. Procedure Note Esmer Smyth MD - 06/23/2024 PROCEDURE: CT Abdomen and Pelvis without contrast INDICATION: R/o bowel injury s/p hysteroscopy with suspected uterineperforation TECHNIQUE: CT of the abdomen and pelvis without contrast. Multiplanarreformats. The examination was performed utilizing dose reductiontechniques. DLP: 1205 mGy/cm COMPARISON: No priors available. FINDINGS: LOWER THORAX: Left pleural thickening no consolidation HEPATOBILIARY: No focal liver lesions. Mild biliary dilatation setting ofprior cholecystectomy. SPLEEN: Splenectomy. PANCREAS: No focal mass or ductal dilatation. ADRENALS: No nodules. KIDNEYS/URETERS: Exophytic cysts right kidney punctate nonobstructingcalculus lower pole of the right kidney. PELVIC ORGANS/BLADDER: Right adnexal cyst. There is inflammatory changeand locules of gas near the fundus. Multiple small bowel loops course inthis vicinity without wall thickening or fluid collection. Limitedexamination due to streak artifact from left hip arthroplasty. PERITONEUM / RETROPERITONEUM: There are reactive nodes near the iliacbifurcation and adjacent to the uterine fundus. VESSELS: Scattered atherosclerotic calcifications throughout the aorta andits major branches. No aneurysm. IVC filter with tines outside venacava. GI TRACT: No bowel obstruction. Prior colectomy with left lower quadrantileostomy. Limited evaluation of the pelvis due to left hip arthroplastyhardware. BONES AND SOFT TISSUES: Osteopenia with scoliosis and significantdegenerative changes. Left hip arthroplasty. Remote rib deformities.Generator in the left flank soft tissues with stimulator leads noted.Small fat-containing parastomal hernia on the left. There is markedatrophy throughout with asymmetric atrophy of the left psoas and iliacusmusculature. IMPRESSION: Limited examination the absence of IV/oral contrast. Inflammatory change and tiny locules of gas at the uterine funduscompatible with given history of uterine perforation. There are smallbowel loops that course in this vicinity, but there is no grosspneumoperitoneum or fluid collection. Bowel injury cannot beunequivocally excluded on the basis of this examination alone. Recommendclose clinical observation and repeat imaging if indicated. -------- FINAL REPORT -------- Dictated By: Esmer Smyth Dictated Date: 06/23/2024 12:15 ET Assigned Physician: Esmer Smyth Reviewed and Electronically Signed By: Esmer Smyth Signed Date: 06/23/2024 12:24 ET Workstation ID: [id number] Transcribed By: Self Edit Transcribed Date: 06/23/2024 12:15 ET Stefany DANIELS IMG CT PROCEDURES Final Result * (ABNORMAL) Creatinine serum (06/22/2024 10:52 AM EDT) Creatinine 1.85(H) 0.50 - 1.10 mg/dL LAB CHEMISTRY METHOD 06/22/2024 11:43 AM EDT [facility] eGFR 28(L) >=60 mL/min/1. 73m2 LAB CHEMISTRY METHOD 06/22/2024 11:43 AM EDT [facility] Comment:Calculation based on the Chronic Kidney Disease Epidemiology Collaboration (CKD-EPI) equation refit without adjustment for race. Blood Venous blood specimen / Unknown Venipuncture / Unknown 06/22/2024 10:52 AM EDT 06/22/2024 10:56 AM EDT us Jeanne Gonzales MD LAB BLOOD ORDERABLES Final Resul t [facility] [address] [place] [address], * Tissue exam (06/22/2024 9:31 AM EDT) Only the most recent of2 resultswithin the time period is included. Final Diagnosis A. Endometrial curettings, sample: Mature adipose tissue with scant fibrous tissue No endometrium identified B. Endometrial curettings: Mature adipose tissue Atrophic endometrium No endometrial hyperplasia or neoplasm identified Benign endocervical and squamous epithelium Abundant blood 06/23/2024 12:39 PM EDT [facility] Gross Description A. Endometrium, EMC: Labeled [facility] Endo . Received fresh, for frozen section is a soft, yellow, 0.5 cm in greatest diameter portion of adipose tissue which is submitted in toto for frozen section. The frozen section residue is submitted in toto in one cassette, one piece, for permanent section. B. Endometrium, EMC: Labeled EMC Endo . Received in formalin, some of which is on sheets of Telfa, is a 5.5 x 2.0 x 0.9 cm aggregate of minimal soft, rodrigues-pink tissue, blood-streaks mucoid material and predominating blood clot. Additionally present is a 0.7 cm in greatest diameter of soft, yellow adipose tissue which is discussed with Dr. Gonzales intraoperativel y. No sections are submitted for frozen section. The specimen is submitted in toto in five cassettes. 1-adipose tissue, multiple pieces 2-5 remaining tissue, multiple pieces each TS 06/23/2024 12:39 PM EDT [facility] Intraoperative Consultation A. Endometrium, EMC: Frozen section : Adipose tissue present JS/AL B. Endometrium, EMC: Gross exam: Adipose tissue present JS/AL 06/23/2024 12:39 PM EDT [facility] Disclaimer Unless otherwise specified, all tissue is 10% NB formalin fixed and paraffin embedded. 06/23/2024 12:39 PM EDT [facility] Tissue Endometrial structure / Unknown 06/22/2024 9:31 AM EDT 06/22/2024 9:44 AM EDT Tissue specimen (specimen) Endometrial structure / Unknown 06/22/2024 9:38 AM EDT 06/22/2024 9:55 AM EDT us Jeanne Gonzales MD LAB PATHOLOGY ORDERABLES Final R esult [facility] [address] [place] [address], * TH AN LMA(NO CHARGE) (06/22/2024 9:00 AM EDT) Narrative Wyatt Muñoz CRNA - 06/22/2024 9:00 AM EDT Wyatt Muñoz CRNA ? 06/22/2024 ??9:00 AM General Information and Staff Patient location during procedure: OR Performed by: Wyatt Muñoz CRNA Authorized by: Lisy Samson MD ?? Intubation Urgency: elective Final Airway Details Number of attempts at approach: 1 LMA Size: 4 LMA Type: LMA Seal Pressure: Final airway type: LMA Indications and Patient Condition Indications for airway management: anesthesia Spontaneous Ventilation: absent Sedation level: Yes Preoxygenated: yes Soft Tissue Damage: No Dentition Unchanged: Yes Patient position: neutral Lisy Samson MD ANESTHESIA ORDERABLES Fin al Result * Antibody identification (06/22/2024 7:43 AM EDT) Antibody Identification E Antibody 06/22/2024 2:48 PM EDT [facility] Antibody Identification Fya Antibody (Rangel a) 06/22/2024 2:48 PM EDT [facility] Antibody Identification K Antibody (Iuka) 06/22/2024 2:48 PM EDT [facility] Antibody Identification Little c Antibody 06/22/2024 2:48 PM EDT [facility] Blood Venous blood specimen / Unknown Venipuncture / Unknown 06/22/2024 7:43 AM EDT 06/22/2024 8:04 AM EDT Jeanne Gonzales MD LAB BLOOD BANK TEST ORDERABLES F inal Result [facility] [address] [place] [address], [place] [phone] * Type and screen (06/22/2024 7:43 AM EDT) ABO Group O 06/22/2024 2:45 PM EDT [facility] Rh Type Positive 06/22/2024 2:45 PM EDT [facility] Antibody Screen Positive 06/22/2024 2:45 PM EDT [facility] Blood Venous blood specimen / Unknown Venipuncture / Unknown 06/22/2024 7:43 AM EDT 06/22/2024 8:04 AM EDT Jeanne Gonzales MD LAB BLOOD BANK TEST ORDERABLES F inal Result [facility] [address] [place] [address], [place] [phone] * CA ENDOMETRIAL SAMPLING W/WO ENDOCERVICAL SAMPLING W/O CERVICAL DILATION (06/10/2024 12:50 AM EDT) Narrative Jeanne Gonzales MD - 06/10/2024 12:50 AM EDT Jeanne Gonzales MD ? 06/10/2024 ??1:02 AM Endometrial biopsy Indication: post-menopausal bleeding Date/Time: 06/10/2024 12:50 AM Performed by: Jeanne Gonzales MD Authorized by: Jeanne Gonzales MD ?? Informed Consent: ??Site: ??Endometrium ??Procedure/treatment, purpose, treatment alternatives, risks/potential complications and benefits explained: yes ?Consent given by: ??Patient ??Informed consent discussion completed by Physician/WALTER with patient: ?? Written; patient signed and dated; copy to patient Pre-procedure: ??Uterus size: ??6-8 weeks ??Uterus position: ??Anteverted Procedure: ??A speculum was placed into the vagina and the cervix was prepped with: ?? Betadine ??Cervix stablized: ??With tenaculum ??Cervix dilation: yes ?Uterus sounded: yes ?Uterus sound depth (cm): ??8 ??Cervix: stenotic ?Number of passes to obtain adequate specimen: ??1 ??Patient tolerated procedure well with no complications: yes ?? Jeanne Gonzales MD IN CLINIC/BEDSIDE ORDERABLES Fin al Result * (ABNORMAL) Urinalysis with reflex microscopic and culture (05/23/2024 11:52 AM EDT) Specific [place] Urine 1.009 1.003 - 1.030 LAB URINALYSIS - AUTOMATED METHOD 05/23/2024 2:37 PM [facility] pH, Urine 5.5 5.0 - 8.0 pH LAB URINALYSIS - AUTOMATED METHOD 05/23/2024 2:37 PM [facility] Leukocytes, Urine Negative Negative LAB URINALYSIS - AUTOMATED METHOD 05/23/2024 2:37 PM [facility] Nitrite, Urine Negative Negative LAB URINALYSIS - AUTOMATED METHOD 05/23/2024 2:37 PM [facility] Protein, Urine Negative <=Trace mg/dL LAB URINALYSIS - AUTOMATED METHOD 05/23/2024 2:37 PM [facility] Glucose, Urine Negative Negative mg/dL LAB URINALYSIS - AUTOMATED METHOD 05/23/2024 2:37 PM [facility] Ketones, Urine Negative Negative mg/dL LAB URINALYSIS - AUTOMATED METHOD 05/23/2024 2:37 PM [facility] Urobilinogen , Urine 0.2 0.2 - 1.0 mg/dL LAB URINALYSIS - AUTOMATED METHOD 05/23/2024 2:37 PM [facility] Bilirubin, Urine Negative Negative LAB URINALYSIS - AUTOMATED METHOD 05/23/2024 2:37 PM [facility] Blood, Urine Moderate(A) Negative LAB URINALYSIS - AUTOMATED METHOD 05/23/2024 2:37 PM [facility] RBC, Urine 0.6 0 - 4 /HPF LAB URINALYSIS - AUTOMATED METHOD 05/23/2024 2:37 PM [facility] WBC, Urine 0.3 0 - 4 /HPF LAB URINALYSIS - AUTOMATED METHOD 05/23/2024 2:37 PM [facility] Squamous Epithelial, Urine 28 0 - 60 /LPF LAB URINALYSIS - AUTOMATED METHOD 05/23/2024 2:37 PM EDT [facility] Bacteria, Urine Negative Negative /HPF LAB URINALYSIS - AUTOMATED METHOD 05/23/2024 2:37 PM EDT [facility] Hyaline Casts, Urine 0.8 0 - 3 /LPF LAB URINALYSIS - AUTOMATED METHOD 05/23/2024 2:37 PM EDT [facility] Urine Urinary bladder structure / Unknown Non-blood Collection / Unknown 05/23/2024 11:52 AM EDT 05/23/2024 2:25 PM EDT us Jeanne Gonzales MD LAB URINE ORDERABLES Final Resul t Performing Organization Address [facility]/ZIP Co de Phone Number [facility] [address] [place] [address], [place] [phone] * Martell urine culture tube (05/23/2024 11:52 AM EDT) Extra Tube Hold for add-ons. 05/23/2024 4:02 PM EDT [facility] Comment:Auto resulted. Urine Urinary bladder structure / Unknown Non-blood Collection / Unknown 05/23/2024 11:52 AM EDT 05/23/2024 2:26 PM EDT us Jeanne Gonzales MD LAB URINE ORDERABLES Final Resul t Performing Organization Address [facility]/ZIP Co de Phone Number [facility] [address] [place] [address], [place] [phone] * Vascular US duplex carotid bilateral (05/11/2024 12:53 PM EDT) Anatomical Region Laterality Modality Vascular, Abdomen Ultrasound 05/16/2024 11:1 6 AM EDT Impressions 05/16/2024 11:25 AM EDT 1. Again seen is a 50-69% stenosis of the proximal right internal carotid artery, without significant change since the prior study performed 10/08/2022. 2. Chronic occlusion of the left internal carotid artery. 3. The vertebral arteries remain patent with antegrade flow. Code 41189 PQRI Note: Measurement of carotid stenosis is based on velocity parameters that correlate the residual internal carotid diameter with [place] ??Symptomatic Carotid Endarterectomy Trial (NASCET)-based stenosis levels and velocity criteria are extrapolated from diameter data as defined by the Society of Radiologists in Ultrasound Consensus Conference Radiology 2003; 229;340-346.? PQRI CPT II 3100F -------- FINAL REPORT -------- Dictated By: Oleksandr Connor Dictated Date: 05/16/2024 11:16 ET Assigned Physician: Oleksandr Connor Reviewed and Electronically Signed By: Oleksandr Connor Signed Date: 05/16/2024 11:25 ET Workstation ID: [id number] Transcribed By: Self Edit Transcribed Date: 05/16/2024 11:24 ET Narrative 05/16/2024 11:25 AM EDT HISTORY: The patient is a 79-year-old female for follow-up of carotid artery stenosis. The patient has a known occlusion of left internal carotid artery. FINDINGS: Real-time ultrasonography of the cervical portions of the carotid arteries bilaterally is performed. On the right, there is a moderate amount of predominantly soft plaque formation at the carotid bifurcation. ??Peak systolic velocities are as follows: Right common carotid artery- 62.7 cm/sec; internal carotid artery- 143.1, similar to 150.8 cm/s on the prior study performed 10/08/2022; external carotid artery- 85.4. The ICA to CCA ratio is 2.3, minimally increased as compared to 2.1 as seen on the prior study. The end-diastolic velocity in the right CCA is 13.9 cm/sec while that in the ICA is 38.1. This data indicates the presence of a 50-69% stenosis of the proximal ICA, without significant change since the prior study. On the left, there is a moderate amount of predominantly soft plaque at the carotid bifurcation, as also seen previously. The internal carotid artery is again seen to be occluded at its origin. Peak systolic velocities are as follows: Left CCA- 82.3 cm/sec; ICA- occluded; ECA- 131.9. The ICA to CCA ratio is 0. The end diastolic velocity in the left CCA is 0 cm/sec while that in the ICA is occluded. The vertebral arteries are patent bilaterally with antegrade flow. Procedure Note Oleksandr Connor MD - 05/16/2024 HISTORY: The patient is a 79-year-old female for follow-up of carotidartery stenosis. The patient has a known occlusion of left internalcarotid artery. FINDINGS: Real-time ultrasonography of the cervical portions of thecarotid arteries bilaterally is performed. On the right, there is amoderate amount of predominantly soft plaque formation at the carotidbifurcation. Peak systolic velocities are as follows: Right commoncarotid artery- 62.7 cm/sec; internal carotid artery- 143.1, similar to150.8 cm/s on the prior study performed 10/08/2022; external carotidartery- 85.4. The ICA to CCA ratio is 2.3, minimally increased as comparedto 2.1 as seen on the prior study. The end-diastolic velocity in the rightCCA is 13.9 cm/sec while that in the ICA is 38.1. This data indicates thepresence of a 50-69% stenosis of the proximal ICA, without significantchange since the prior study. On the left, there is a moderate amount of predominantly soft plaque atthe carotid bifurcation, as also seen previously. The internal carotidartery is again seen to be occluded at its origin. Peak systolicvelocities are as follows: Left CCA- 82.3 cm/sec; ICA- occluded; ECA-131.9. The ICA to CCA ratio is 0. The end diastolic velocity in the leftCCA is 0 cm/sec while that in the ICA is occluded. The vertebral arteries are patent bilaterally with antegrade flow. IMPRESSION: 1. Again seen is a 50-69% stenosis of the proximal right internal carotidartery, without significant change since the prior study performed10/08/2022. 2. Chronic occlusion of the left internal carotid artery. 3. The vertebral arteries remain patent with antegrade flow. Code 82747 PQRI Note: Measurement of carotid stenosis is based on velocity parametersthat correlate the residual internal carotid diameter with [place] AmericanSymptomatic Carotid Endarterectomy Trial (NASCET)-based stenosis levelsand velocity criteria are extrapolated from diameter data as defined bythe Society of Radiologists in Ultrasound Consensus Conference Lpwzpyees3138; 229;340-346.? PQRI CPT II 3100F -------- FINAL REPORT -------- Dictated By: Oleksandr Connor Dictated Date: 05/16/2024 11:16 ET Assigned Physician: Oleksandr Connor Reviewed and Electronically Signed By: Oleksandr Connor Signed Date: 05/16/2024 11:25 ET Workstation ID: [id number] Transcribed By: Self Edit Transcribed Date: 05/16/2024 11:24 ET us Kailee Cornelius MD CV VASCULAR PROCEDURES Fi nal Result * HISTORICAL IMAGING SCAN RESULT (04/27/2024) Anatomical Region Laterality Modality Ultrasound us Provider Onbase IMG US PROCEDURES Final Resul t * (ABNORMAL) TRANSTHORACIC ECHOCARDIOGRAM (TTE) COMPLETE (04/25/2024 12:53 PM EDT) BSA 2.23 m2 CV PACS Left [facility] Minor [place] 6.2 cm CV PACS Left At[facility] Major [place] 6.2 cm CV PACS LA Area Sys (A2C) 26 cm2 CV PACS LA Area Sys (A4C) 26 cm2 CV PACS LA Volume (BP) 89 mL CV PACS RA Area 17.5 cm2 CV PACS RA 2D Volume 47 mL CV PACS AV Mean Gradient 9 mmHg CV PACS Ao VTI 45.7 cm CV PACS AV Peak [place] 2.0 m/s CV PACS AV Peak Gradient 17 mmHg CV PACS AV Area Continuity Equation 2.6 cm2 CV PACS AV Area Peak Velocity 2.5 cm2 CV PACS Aortic Sinus Valsal[place] 3.3 cm CV PACS Ascending Aorta 3.3 cm CV PACS IVSD 0.9 0.6 - 0.9 cm CV PACS LVIDD 4.1 3.8 - 5.2 cm CV PACS LVIDS 3.2 2.2 - 3.5 cm CV PACS LVOT Diameter 2.2 cm CV PACS LVOT Mean [place] 1.0 m/s CV PACS LVOT Mean Grad 4 mmHg CV PACS LVOT Peak VTI 31.8 cm CV PACS LVOT Peak [place] 1.3 m/s CV PACS LVOT Peak Gradient 7 mmHg CV PACS LVPWD 1.0(A) 0.6 - 0.9 cm CV PACS MV E' Tissue Velocity Lateral 12 cm/s CV PACS MV E' Tissue Velocity Septal 7 cm/s CV PACS LVOT Area 3.8 cm2 CV PACS LVOT Stroke Volume 121 mL CV PACS MV Deceleration [place] 3.9 m/s2 CV PACS E Wave Deceleration Time 183 119 - 242 ms CV PACS MV PHT 54 ms CV PACS MV Peak A [place] 0.81 m/s CV PACS MV Peak E [place] 0.71 m/s CV PACS MV Mean Gradient 2 mmHg CV PACS MV Mean Gradient 2 mmHg CV PACS MV VTI 31.0 cm CV PACS Mitral Valve Max Velocity 1.1 m/s CV PACS MV Peak Gradient 5 mmHg CV PACS MV Area PHT 4.1 cm2 CV PACS MV Area Continuity Equation 3.9 cm2 CV PACS PV Acceleration Time 80 ms CV PACS RV Diastolic Basal Dimension 4.6(A) 2.5 - 4.1 cm CV PACS RV S' 15 cm/s CV PACS TAPSE 24 mm CV PACS TR Peak Velocity 2.84 m/s CV PACS TR Peak Gradient 32 mmHg CV PACS E/E' Ratio Septal 10 CV PACS E/E' Ratio Averaged 8 CV PACS LVOT Stroke Index 58 mL/m2 CV PACS Relative Wall Thickness ratio 0.49 CV PACS LVOT:AV VTI Index 0.70 CV PACS FS 22 % CV PACS LV Mass 2D 123 g CV PACS Ascending Aorta Index 1.57 cm/m2 CV PACS MV VTI:LVOT VTI ratio 1.0 CV PACS LVOT flow 380 mL/s CV PACS RA 2D Volume Index 22 mL/m2 CV PACS NOVA Index (VTI) 1.26 cm2/m2 CV PACS NOVA Index (Pk Amaury) 1.19 cm2/m2 CV PACS LVIDD Index 1.95 cm/m2 CV PACS LVIDS Index 1.52 cm/m2 CV PACS AV Velocity Ratio 0.65 CV PACS E/A Ratio 0.9 CV PACS E/E' Ratio Lateral 6 CV PACS LA Volume Index (BP) 42 mL/m2 CV PACS LV Mass Index 2D 59 g/m2 CV PACS GLS -27.3 % CV PACS Right Ventricular Peak Systolic Pressure 40 mmHg CV PACS Est. RA Pressure 8 mmHg CV PACS PASP 40 mmHg CV PACS Anatomical Region Laterality Modality Ultrasound Narrative 05/29/2024 6:35 PM EDT ?Left??Ventricle: Systolic function is normal with an ejection fraction of 60-65%. LV global longitudal strain is normal. Global longitudinal strain is -27.3%. The LV regional wall motion is grossly normal on limited views. Diastolic function is indeterminate. ?Right ventricle cavity is mildly enlarged. Right ventricular systolic function is normal. ?Mitral??Valve: There is mild regurgitation. ?Tricuspid??Valve: There is mild regurgitation. ??There is mild pulmonary hypertension. ??The PASP is estimated at 40 mmHg. Left Ventricle Left ventricle was not well visualized. Left ventricle cavity size is normal. There is mild concentric hypertrophy. Systolic function is normal with an ejection fraction of 60-65%. LV global longitudal strain is normal. Global longitudinal strain is -27.3%. The LV regional wall motion is grossly normal on limited views. Diastolic function is indeterminate. Right Ventricle Right ventricle cavity is mildly dilated. Systolic function is normal. Left Atrium Left atrium cavity is moderately dilated. Right Atrium Right atrium cavity is normal. There is a prominent Eustachian valve. IVC/SVC RA pressures is estimated to be 8 mmHg (IVC diameter <21 mm and decreases <50% during inspiration). Mitral Valve The leaflets are mildly thickened. There is mild annular calcification. There is mild regurgitation. There is no evidence of mitral valve stenosis. Tricuspid Valve Tricuspid valve structure is normal. There is mild regurgitation. There is no evidence of tricuspid valve stenosis. The right ventricular systolic pressure is mildly elevated. The PASP is estimated at 40 mmHg. Aortic Valve Number of aortic valve cusps cannot be determined. The leaflets are mildly thickened. Aortic annular calcification There is no significant regurgitation. There is no evidence of aortic valve stenosis. Pulmonic Valve Visualized portions of the pulmonic valve appear normal. No significant pulmonic valve regurgitation. There is no evidence of pulmonic valve stenosis. The estimated pulmonary artery systolic pressure is 40 mmHg. Ascending Aorta The aorta appears normal in size. Pericardium There is an anterior fat pad. There is no pericardial effusion. Study Details Overall the study quality was technically difficult. Unable to administer contrast. Study was difficult due to: poor endocardial visualization, patient body habitus and lung artifact. René Mckinnon MD CV ECHO PROCEDURES Fin al Result from Last 3 Months Insurance [facility] MEDICARE ADVANTAGE MEDICAID - [place] Advance Directives * Full Code - Default (Latest Code Status on File) Date Activated Date Inactivated Comments 06/22/2024 7:17 AM 06/24/2024 3:21 PM This is order is used when code status has not been discussed with the patient, or code status is otherwise unknown/unconfirmed To update the patient's code status, place a code status order. Do not modify or discontinue any currently active code status orders. * Full Code - Default Date Activated Date Inactivated Comments 01/19/2024 11:36 AM 01/19/2024 5:43 PM This is ord er is used when code status has not been discussed with the patient, or code status is otherwise unknown/unconfirmed To update the patient's code status, place a code status order. Do not modify or discontinue any currently active code status orders. Care Teams Blow Mold Operator Relationship Specialty Start Date End Date Emma Lanza MD [address] [place] [id number] PCP - General Internal Medicine 10/11/21
--- OUTSIDE RECORDS SUMMARY | 2024-07-06 13:28 | XMS_ITS | Data Portability ---
Author Organization [place] [facility] Address [address] [place] [id number] Care Team Providers Care Site Operations Manager Name Role Phone ELODIA BORREGO Primary Care Provider [phone] Assessment Encounter Date Assessment Date Assessment LastModified by Organization Details LastModified Time 11/24/2020 11/24/2020 Brief History: [age] y/o F PMH obesity, HTN, remote breast CA s/p L lumpectomy, HChol, Stage III renal disease, depression, provoked remote DVT (2007), s/p R toe surgery w/ MTP fusion who presents with BLE pain, muscle cramps, swelling since she was home from acute rehab. Pt is new to , new to this issue and new to this provider. Summary of Exam: Vitals stable, afebrile. R great toe warmth, fusiform swelling and pain- surgically fused MTP joint but able to range other joints of R foot and no bony TTP. Cap refill <2 sec and peripheral pedal pulses appreciated. Anterior mid RLE with warmth and erythema. LLE with distal erythema without warmth. 3+ pitting edema BLEs. Able to weight bear. LS CTAB. Non-toxic appearing Work up/Results: Chem 8- hyperglycemia and renal function consistent with stage III baseline, otherwise unremarkable DDx considered & Medical Decision Making: Differentials considered septic arthritis, osteomyelitis, cellulitis, DVT. Pt has no fever and no bony tenderness and able to weight bear making septic arthritis and osteomyelitis low suspicion. Morbid obesity, did have recent procedure in last 90 days, h/o provoked DVT. Pt did have Lovenox prophylactically but this has been completed. BLE swelling but no SOB/PIÑA, CP and lung sounds clear with no h/o CHF. After allergies and medications reviewed, Pt initiated on 2 weeks of clindamycin and will burst with 3 days diuresis. Will evaluate joint/hardware further with xray and us for r/o DVT. Discussed gold standard to rule out septic arthritis and osteomyelitis with pt via shared decision making. Provided with STRICT ED guidelines and FU scheduled for 11/27. No prior records available at the time of this visit. Proper Personal Protective Equipment (PPE), including gloves, surgical mask were donned and doffed appropriately and all equipment cleaned using approved technique with germicidal disposable wipes prior to and after care of this patient according to [facility] infection prevention protocols. Time On Scene with Patient: 00:51:12 [email or web address] Not available 11/24/2020 16:39:10 11/29/2020 11/29/2020 Time On Scene with Patient: 00:35:42 [email or web address] Not available 11/29/2020 09:24:02 11/16/2021 11/16/2021 Overview/History : 76 YO F new to provider but known to She has hx of HTN, HLD, Breast Ca, CKD Stage III, and LBBB. Being seen today for what was listed as dyspnea on exertion that is increased form baseline. She admits to me she has chest pain to the left side of her chest and radiates into her left arm when we see her however. She also has increased SOB from baseline and she has bene more nauseous this week. She has not considered going to the hospital for this issue as of yet nor contacting her holiday detector operator. She does not want to burden her kids any further she states as her is on hospice and this is new as of 1 month ago. Otherwise she denies any otehr sxs ie fever, cough, numbness/tingling. Exam: Vitals: VSS and afebrile Constitutional: 76 yo Well developed, well nourished, pleasant patient in no apparent distress. Sitting upright in her chair and not toxic appearing. Eyes: corrective lenses, No swelling, no discharge, sclera / conjunctiva clear ENT: no nasal discharge, no erythema/ exudate noted in oropharynx, moist mucous membranes CV: RRR, no rubs/ murmurs/ gallops heard, 2+ radial pulses bilaterally, mild-mod lymphedema BL, 2+ DP/ PT pulses bilaterally Pulm: breath sounds clear and equal bilaterally, no wheeze/ rhonchi or rales on auscultation. Speaks in full sentences, no increased work of breathing. GI: Soft, non-tender to palpation. No masses, normal bowel sounds. MS: Self ambulatory patientw/ her walker, moves all limbs without deficit, no evidence of trauma Neuro: No focal deficits, A&O x4 Skin: No rash, no cyanosis or pallor Psych: Calm, cooperative, non-manic. Pleasant. DDx considered, but not limited to: ACS/CHF/Pna/PE - doubt PE, no s/s of DVT on exam, no current pleuritic cp, def concerned based on her hx and new c/o of increased SOB and chest pain w/ radiation to the arm for possible ACS. Lungs clear so doubt CHF or pna. Work up/Results: EKG shows some possible elevation that is not mentioned in pervious EKGS from hospital earlier this year in September. LBBB is not new. MT interval normal and normal sinus at 72 BPM otherwise. Lead III does have clear ST elevation and AVF appears to be starting w/ some mild elevation. ?Depression in AVL. EKG has lot of artifact and difficult to fully assess. Plan/Discussion: Possible ACS: -Patient w/ classic sxs x 1 week -Chest pain into arm and increased SOB -Described pain to me as pressure or someone sitting on her chest -Comes and goes but was present at start of our visiit -Has a cardiac hx and she is followed by cards -Based on sxs regardless of EKG recc getting checked out as sxs are classic for KS -Initially she wasn't sure she wanted to go but I described a story of a family member of mine who ignored chest pain and SOB for a week and ended up diagnosed w/ KS and Herat Failure whose story reminds of this patients. Because of this patient is willing to go get checked out to ensure no further cardiac damage is done. -EKG also w/ some acute KS changes to inferior leads -EMS called and pt handed off to [facility] -Expect called to [facility] Pt is on agreement and verbalizes understanding with the above plans at this time. Pt has no other questions or concerns at this time. All questiosn are answered to the best of my ability. Pt thanks us for our visit today. In order to obtain further information and compare any laboratory results/values, I have accessed patient records on the [employer]. This information was pertinent in my medical decision making today. [email or web address] Not available 11/16/2021 18:27:52 Plan of Treatment Reminders Order Date Submit Date Provider Last Modified By Organization Details Last Modified Time Details Appointments None recorded. Lab BMP + ionized calcium, serum or plasma 2020 [facility], [address] [place], [address], 16:14:39 Referral None recorded. Procedures None recorded. Surgeries None recorded. Imaging US, duplex, venous, lower extremity, complete - Mobile indication: non-ambulat ory, documented pain 2020 [email or web address] [facility] [address] [address], 17:07:55 XR, foot, 2 view - Mobile indication: non-ambulat ory, pain 2020 [facility] ([facility]), [address] [facility], [place], [place], [address], 10:14:22 Medication Orders Probiotic 10 billion cell capsule 2020 022 [facility]acy #[id number], [address] [place], [address], 16:14:29 torsemide 20 mg tablet 2020 021 [email or web address] [facility]/Pharmacy #[id number], [address] [place], [address], 16:15:08 potassium chloride ER 20 mEq tablet,exte nded release 2020 021 [facility]/Pharmacy #[id number], [address] [place], [address], 16:14:04 clindamycin HCl 300 mg capsule 2020 021 lauren [facility]/Pharmacy #[id number], [address] [place], [address], 15:04:48 Patient TargetsNo targets recorded. Patient Instructions Encounter Date Encounter Id Patient Instructions Last Modified By Organization Details Last Modified Time 11/24/2020 [id number] cellulitis: care instructions asim 5 Not available 11/24/2020 16:04:02 will follow u p with you on Monday 11/27 Please take the medications as prescribed Seek medical attention in the ER if your symptoms get worse. If you have additional concerns or develop a change in your condition between 8am-10pm, please call [facility] at [phone] to help navigate your care. [email or web address] Not available 11/24/2020 16:09:43 11/29/2020 [id number] Please resume yo ur antibiotics STAT and take as prescribed for your right foot as instructed. DO NOT MISS ANY DOSES. We prescribed Probiotic to help with your chronic indigestion. Please take tums for your indigestion as well. Continue with your Nexium 2 x daily as well. 1. FOLLOW UP WITH YOUR SURGEON STAT. CALL TODAY FOR APPT. 2. FOLLOW UP WITH CARDIOLOGY AND RENAL DRMarciano STAT, YOU HAVEN'T SEEN YOUR CARDIOLOGY DOCTOR IN A YEAR. YOU HAVE FINE CRACKLES IN YOUR LOWER LUNGS; YOUR VITAL SIGNS ARE FINE. YOU RECENTLY COMPLETED A 3 DAY COURSE OF TORSEMIDE AT TWICE THE DOSE (40 MG). YOU ARE NOT HAVING RESPIRATORY DISTRESS. HOWEVER, YOUR LUNG SOUNDS DESERVE FOLLOW UP WITH YOUR CARDIOLOGY/RENAL PROVIDERS. 3. IF YOU DEVELOP A FEVER, WORSENING REDNESS, PAIN, SEE PUS FROM YOUR WOUND, GO TO THE ER STAT. Thank you for your visit with [facility] today. You may have had laboratory tests or cultures performed today. At this time, we do not feel that you have an infection that requires hospitalization. However, infections can get worse, even with antibiotics. If you have worsening redness, pain or fever, go immediately to the Emergency Department. Please follow up with your primary care provider or with the specialist referral you were given, within 12-24 hours to be re-examined. If you develop any new or worsening symptoms and need after hours care, please go to nearest ER and/or call 911. If you have additional concerns or develop a change in your condition between 8am-10pm, please call [facility] at [phone] to help navigate your care. Thank you for your visit with [facility] today. You were seen today for treatment of a wound. Please seek immediate medical attention if you develop increased pain, redness, or swelling of your wound. Also, you should be evaluated if the wound becomes warm to the touch, or if there is a cloudy, yellow-brown discharge from the wound. There is always the possibility of a hidden tendon injury or foreign object in the wound. If you have problems moving your arm or leg, or if you see red streaks up the arm or leg, seek immediate medical attention. If you develop any new or worsening symptoms and need after hours care, please go to nearest ER and/or call 911. If you have additional concerns or develop a change in your condition between 8am-10pm, please call [facility] at [phone] to help navigate your care. [email or web address] Not available 11/29/2020 09:08:22 Reason for Referral None Reported. Results Created Date Observation Date Name Description Value Unit Range Abnormal Flag Note LastModifiedBy Organization Detail LastModifiedTime 11/25/19 21 11/24/2020 BMP + IONIZ ED CALCI UM, SERUM OR PLASM A glu 139 mg/dL 70-105 Not Available [facility] [address] [place], [address], 11/24/2020 16:14:39 11/25/19 21 11/24/2020 BMP + IONIZ ED CALCI UM, SERUM OR PLASM A BUN 25 mg/dL 8-26 Not Available [facility] [address] [place], [address], 11/24/2020 16:14:39 11/25/19 21 11/24/2020 BMP + IONIZ ED CALCI UM, SERUM OR PLASM A crea 1.5 mg/dL 0.6-1. 3 Not Available [facility], [address], 11/24/2020 16:14:39 11/25/19 21 11/24/2020 BMP + IONIZ ED CALCI UM, SERUM OR PLASM A Na 137 mmol/ L 138-14 6 Not Available [address], [address], 11/24/2020 16:14:39 11/25/19 21 11/24/2020 BMP + IONIZ ED CALCI UM, SERUM OR PLASM A K 3.8 mmol/ L 3.5-4. 9 Not Available [address], [address], 11/24/2020 16:14:39 11/25/19 21 11/24/2020 BMP + IONIZ ED CALCI UM, SERUM OR PLASM A cL 102 mmol/ L 98-109 Not Available [address], [address], 11/24/2020 16:14:39 11/25/19 21 11/24/2020 BMP + IONIZ ED CALCI UM, SERUM OR PLASM A TCO2 24 mmol/ L 24-29 Not Available [address], [address], 11/24/2020 16:14:39 11/25/19 21 11/24/2020 BMP + IONIZ ED CALCI UM, SERUM OR PLASM A angap 16 mmol/ L 10-20 Not Available [address], [address], 11/24/2020 16:14:39 11/25/19 21 11/24/2020 BMP + IONIZ ED CALCI UM, SERUM OR PLASM A ica 1.20 mmol/ L 1.12-1 .32 Not Available [address], [address], 11/24/2020 16:14:39 11/25/19 21 11/24/2020 BMP + IONIZ ED CALCI UM, SERUM OR PLASM A HCT 32 %pcv 38-51 Not Available [facility] [address] [place], [address], 11/24/2020 16:14:39 11/25/19 21 11/24/2020 BMP + IONIZ ED CALCI UM, SERUM OR PLASM A Hb 10.9 g/dL 12-17 Not Available [facility] [address] [place], [address], 11/24/2020 16:14:39 11/28/19 21 US, duple x, venou s, lower extre mity, compl ete No observ ation record ed. [email or web address] [facility] ([facility]) [address] [facility], [place], [address], 11/27/2020 19:39:45 11/30/19 21 XR, foot, 2 view No observ ation record ed. [email or web address] [facility] [address] [facility], [place], [address], 12/01/2020 12:15:47 11/26/19 22 elect rocar diogr am No observ ation record ed. [email or web address] Not Available 2021 14:37:38 Result Notes None recorded. Procedures Surgical History Date Name Laterality Status Provider Name and Address Organization Details Recorded Time Medication Review completed FRANCES Weaver [address], [place], [address], [place] [facility] 11/16/2021 16:16:16 ECG Interpretation - completed FRANCES Weaver [address], [place], [address], [place] [facility] 11/16/2021 18:18:00 Venipuncture - completed SAE RICHARDS NP [address], [place], [address], [place] [facility] 11/26/2020 16:36:00 examination of toe completed SAE RICHARDS NP [address], [place], [address], [place] [facility] 11/24/2020 15:45:41 lumpectomy of right breast completed SAE RICHARDS NP [address], [place], [address], [place] [facility] 11/24/2020 15:46:27 Colostomy completed SAE RICHARDS NP [address], [place], [address], [place] [facility] 11/24/2020 16:13:08 Imaging Results Imaging Date Name Status LastModified by Organization Details LastModified Time 11/27/2020 US, duplex, venous, lower extremity, complete completed [email or web address] [facility]) [address] [place], [address], 11/27/2020 19:39:45 11/29/2020 XR, foot, 2 view completed [email or web address] [facility] [address] [place], [address], 12/01/2020 12:15:47 11/25/2021 electrocardiogram completed [email or web address] Informa tion not available 11/25/2021 14:37:38 Procedure Notes None recorded. Medical Equipment None Reported. Allergies Allergen ID Allergen Name Allergen Category Reaction Reaction Severity Criticality Documentation Date Start Date Code Code System Note Provider Name and Address Organization Details Recorded Time [id number] Product containin g penicilli n (product) medicatio n Not available Not available Not available 11/24/2020 23035 8001 SNOMED SAE RICHARDS NP [address], [place], [address], [place] [facility] 15:35:40 530274 Substance with sulfonami de structure and antibacte rial mechanism of action (substanc e) medicatio n Not available Not available Not available 11/24/2020 86610 8003 SNOMED SAE RICHARDS , [employer]ER [address], [place], [address], [place] [facility] 15:35:45 407160 vancomyci n medicatio n Not available Not available Not available 11/24/2020 45686 RxNorm SAEGENEVIEVE RICHARDS , [employer]ENDER [address], [place], [address], [place] [facility] 15:35:50 996352 codeine medicatio n Not available Not available Not available 11/24/2020 2670 RxNorm SAEGENEVIEVE RICHARDS , [employer]ENDER [address], [place], [address], [place] [facility] 15:35:56 [id number] Non-stero idal anti-infl ammatory agent (product) medicatio n Not available Not available Not available 11/16/2021 73081 005 SNOMED FRANCES Hodgson [address], [place], [address], [place] [facility] 2 16:02:30 [id number] coconut extract food,medi cation Not available Not available Not available 11/16/2021 72797 48 RxNorm FRANCES Hodgson [address], [place], [address], [place] [facility] 2 16:02:38 588776 Iodinated contrast media (substanc e) medicatio n Not available Not available Not available 11/16/2021 61582 2004 SNOMED Viktor Chappell PA [address], [place], [address], [place] [facility] 2 16:08:27 597910 adhesive tape environme nt,medica tion Not available Not available Not available 11/16/2021 74753 UNK Viktor Chappell PA [address], [place], [address], [place] [facility] 2 16:08:38 641010 azithromy grace medicatio n Not available Not available Not available 11/16/2021 10507 RxNorm FRANCES Hodgson [address], [place], [address], [place] [facility] 2 16:08:46 Medications Name Sig Start Date Stop Date Status Note LastModified by Organization Details LastModified Time magnesium 200 mg tablets 200mg TAKE 1 TABLET BY MOUTH 1 TIME EACH DAY. *OTC/NOT COVERED active Not Available Not Available No t Available quetiapine 25 mg tablet 11/16 completed Not Available Not Available Not Available furosemide 40 mg tablet TAKE 1 TABLET BY MOUTH 2 TIMES DAILY FOR 180 DAYS. 11/16 completed Not Available Not Available Not Available metolazone 2.5 mg tablet PLEASE SEE ATTACHED FOR DETAILED DIRECTION S 11/16 completed Not Available Not Available Not Available clotrimazol e 10 mg sandip TAKE 1 LOZENGE BY MOUTH 5 TIMES A DAY,X14 DAYS 11/16 completed Not Available Not Available Not Available potassium chloride ER 10 mEq capsule,ext ended release 11/16 completed Not Available Not Available Not Available prednisone 10 mg tablet 11/16 completed Not Available Not Available Not Available ketoconazol e 2 % shampoo USED TO WASH SCALP EVERY OTHER DAY FOR 2 WEEKS. active Not Available Not Available No t Available torsemide 20 mg tablet TAKE 1 TABLET BY MOUTH EVERY DAY 11/16 completed Not Available Not Available Not Available clindamycin HCl 300 mg capsule TAKE 2 CAPSULES BY MOUTH 1/2 HR PRIOR DENTAL APPT 11/16 completed Not Available Not Available Not Available trazodone 50 mg tablet active Not Available Not Available Not Available nystatin 100,000 unit/gram topical ointment APPLY TO AFFECTED AREA 3 TIMES A DAY 11/16 completed Not Available Not Available Not Available hydrocodone 5 mg-acetamin ophen 325 mg tablet TAKE 1 TO 2 TABLETS EVERY 4 TO 6 HOURS NEEDED FOR PAIN 7 DAYS PER MD 11/16 completed Not Available Not Available Not Available sucralfate 100 mg/mL oral suspension TAKE 10 ML BY MOUTH FOUR TIMES A DAY NEEDED active Not Available Not Available No t Available sucralfate 1 gram tablet TAKE 1 TABLET BY MOUTH TWICE A DAY active Not Available Not Available No t Available prednisone 20 mg tablet TAKE 2 TABLETS BY MOUTH ONCE A DAY FOR 5 DAYS 11/24 completed Not Available Not Available Not Available sodium chloride 1 gram tablet TAKE 2 TABLETS BY MOUTH 3 TIMES A DAY active Not Available Not Available No t Available midodrine 5 mg tablet 11/16 completed Not Available Not Available Not Available metolazone 5 mg tablet TAKE 1 TABLET BY MOUTH DAILY NEEDED ( DIRECTED BY [facility] FOR EDEMA) 11/16 completed Not Available Not Available Not Available torsemide 10 mg tablet TAKE 1 TABLET BY MOUTH DAILY 11/24 completed Not Available Not Available Not Available allopurinol 100 mg tablet TAKE 1 TABLET BY MOUTH EVERY DAY active Not Available Not Available No t Available ciprofloxac in 500 mg tablet TAKE 1 TABLET BY MOUTH TWICE A DAY FOR 6 DAYS STARTING TOMORROW 11/24 completed Not Available Not Available Not Available aspirin 81 mg tablet,angeles yed release TAKE 1 TABLET BY MOUTH EVERY DAY active Not Available Not Available No t Available tramadol 50 mg tablet TAKE 1 TABLET BY MOUTH EVERY DAY NEEDED FOR PAIN active Not Available Not Available No t Available acetaminoph en 500 mg tablet TAKE 2 TABLETS BY MOUTH EVERY 8 HOURS NEEDED FOR PAIN 11/16 completed Not Available Not Available Not Available oxycodone-a cetaminophe n 5 mg-325 mg tablet TAKE 1 TABLET EVERY 6 HOURS NEEDED FOR SEVERE PAIN 11/24 completed Not Available Not Available Not Available potassium chloride ER 20 mEq tablet,exte nded release(par t/cryst) 11/16 completed Not Available Not Available Not Available lorazepam 0.5 mg tablet TAKE 1 TABLET BY MOUTH EVERY 6 HOURS NEEDED 11/16 completed Not Available Not Available Not Available aspirin 325 mg tablet,angeles yed release TAKE 1 TABLET DAILY. TO START THE DAY AFTER SURGERY 11/24 completed Not Available Not Available Not Available tamsulosin 0.4 mg capsule 11/16 completed Not Available Not Available Not Available linezolid 600 mg tablet 11/16 completed Not Available Not Available Not Available meclizine 25 mg tablet active Not Available Not Available Not Available baclofen 10 mg tablet TAKE 1 TABLET BY MOUTH TWICE A DAY NEEDED FOR MUSCLE SPASMS 11/24 completed Not Available Not Available Not Available hydrocortis one 1 % topical cream 11/16 completed Not Available Not Available Not Available pantoprazol e 40 mg tablet,angeles yed release TAKE 1 TABLET BY MOUTH EVERY DAY 11/16 completed Not Available Not Available Not Available ferrous sulfate 325 mg (65 mg iron) tablet TAKE 1 TABLET EVERY DAY active Not Available Not Available No t Available nystatin 100,000 unit/gram topical cream 11/16 completed Not Available Not Available Not Available clotrimazol e-betametha sone 1 %-0.05 % topical cream APPLY SPARINGLY TO THE AFFECTED AREA(S) BETWEEN BUTTOCKS TWICE DAILY. 11/16 completed Not Available Not Available Not Available metoprolol tartrate 50 mg tablet TAKE 1 TABLET BY MOUTH TWICE A DAY active Not Available Not Available No t Available gabapentin 300 mg capsule TAKE 1 CAPSULE BY MOUTH TWICE A DAY 11/16 completed Not Available Not Available Not Available bumetanide 1 mg tablet TAKE 1 TABLET BY MOUTH TWICE A DAY active Not Available Not Available No t Available oxycodone-a cetaminophe n 2.5 mg-325 mg tablet TAKE 1 TABLET BY MOUTH THREE TIMES A DAY NEEDED FOR PAIN 11/24 completed Not Available Not Available Not Available gabapentin 100 mg capsule TAKE 1 CAPSULE BY MOUTH TWICE A DAY X 14 DAYS 11/16 completed Not Available Not Available Not Available sodium chloride 0.9 % intravenous solution 11/16 completed Not Available Not Available Not Available metoprolol succinate ER 25 mg tablet,exte nded release 24 hr 11/16 completed Not Available Not Available Not Available nystatin 100,000 unit/gram topical powder APPLY TO AFFECTED AREA TWICE A DAY 11/16 completed Not Available Not Available Not Available lorazepam 1 mg tablet TAKE 1 TABLET BY MOUTH EVERYDAY AT BEDTIME active Not Available Not Available No t Available levofloxaci n 750 mg tablet TAKE 1 TABLET BY MOUTH EVERY 24 HOURS FOR 7 DAYS 11/16 completed Not Available Not Available Not Available methylpredn isolone 4 mg tablets in a dose pack TAKE 6 TABLETS ON DAY 1 DIRECTED ON PACKAGE AND DECREASE BY 1 TAB EACH DAY FOR A TOTAL OF 6 DAYS 11/16 completed Not Available Not Available Not Available ferrous sulfate 325 mg (65 mg iron) tablet,angeles yed release TAKE 1 TABLET BY MOUTH EVERY DAY *NOT CVD PER INS* 11/24 completed Not Available Not Available Not Available fluticasone propionate 50 mcg/actuati on nasal spray,suspe nsion SPRAY 2 SPRAYS INTO NOSTRILS 2 TIMES DAILY active Not Available Not Available No t Available sertraline 50 mg tablet TAKE 1 TABLET BY MOUTH EVERY DAY active Not Available Not Available No t Available cholecalcif cassie (vitamin D3) 125 mcg (5,000 unit) capsule TAKE 1 CAPSULE BY MOUTH EVERY DAY active Not Available Not Available No t Available ipratropium bromide 21 mcg (0.03 %) nasal spray USE 2 SPRAYS INTO EACH NOSTRIL 1 TO 3 TIMES DAILY 11/24 completed Not Available Not Available Not Available esomeprazol e magnesium 20 mg capsule,del ayed release 11/16 completed Not Available Not Available Not Available oxycodone 5 mg tablet TAKE 1 TABLET BY MOUTH EVERY 4 TO 6 HOURS NEEDED FOR PAIN. DO NOT DRIVE WHILE ON THIS MED 11/16 completed Not Available Not Available Not Available ertapenem 1 gram solution for injection 11/16 completed Not Available Not Available Not Available enoxaparin 40 mg/0.4 mL subcutaneou s syringe 11/24 completed Not Available Not Available Not Available rosuvastati n 5 mg tablet TAKE 1 TABLET BY MOUTH EVERY DAY active Not Available Not Available No t Available metoprolol tartrate 25 mg tablet TAKE 1 TABLET BY MOUTH TWICE A DAY 11/16 completed Not Available Not Available Not Available mirtazapine 7.5 mg tablet TAKE 2 TABLETS BY MOUTH DAILY AT BEDTIME 11/24 completed Not Available Not Available Not Available nitrofurant oin monohydrate /macrocryst als 100 mg capsule TAKE 1 CAPSULE BY MOUTH TWICE A DAY FOR 7 DAYS 11/24 completed Not Available Not Available Not Available duloxetine 30 mg capsule,del ayed release TAKE 1 CAPSULE EVERY MORNING AND TAKE 2 CAPSULES AT BEDTIME 11/16 completed Not Available Not Available Not Available duloxetine 60 mg capsule,del ayed release TAKE 1 CAPSULE BY MOUTH TWICE A DAY 11/16 completed Not Available Not Available Not Available aripiprazol e 2 mg tablet TAKE 1 TABLET BY MOUTH EVERY DAY active Not Available Not Available No t Available diclofenac 1 % topical gel 10/09 /2021 completed Not Available Not Available Not Available Purelax 17 gram/dose oral powder TAKE 17 GRAMS BY MOUTH DAILY FOR 90 DAYS. MIX IN 6 OUNCES OF A CLEAR LIQUID. 11/16 completed Not Available Not Available Not Available Probiotic 10 billion cell capsule Take 1 capsule every day by oral route as directed for 30 days. 11/16 completed Not Available Not Available Not Available Myrbetriq 25 mg tablet,exte nded release TAKE 1 TABLET BY MOUTH EVERY DAY DO NOT CRUSH OR CHEW 11/24 completed Not Available Not Available Not Available Myrbetriq 50 mg tablet,exte nded release TAKE 1 TABLET BY MOUTH EVERY DAY DO NOT CRUSH OR CHEW active Not Available Not Available No t Available potassium chloride ER 20 mEq tablet,exte nded release TAKE 1 TABLET BY MOUTH EVERY DAY active Not Available Not Available No t Available duloxetine 40 mg capsule,del ayed release 11/16 completed Not Available Not Available Not Available Probiotic (B. coagulans) 10 billion cell capsule,del ayed release 11/16 completed Not Available Not Available Not Available Probiotic-1 0 (with inulin) 10 billion cell-100 mg capsule TAKE 1 CAPSULE BY MOUTH EVERY DAY DIRECTED FOR 30 DAYS active Not Available Not Available No t Available Lidocaine Pain Relief 4 % topical patch APPLY 1 PATCH TOPICALLY 2 TIMES A DAY, FOR 5 DAYS 11/24 completed Not Available Not Available Not Available tramadol 100 mg tablet TAKE 1 TABLET BY MOUTH EVERY 12 HOURS NEEDED FOR PAIN, NOT TO EXCEED 400 MG/DAY 11/24 completed Not Available Not Available Not Available Vitals Date Recorded Oxygen saturation Oxygen saturation in Arterial blood by Pulse oximetry Heart rate Body temperature Respiratory rate Systolic blood pressure Diastolic blood pressure Provider Name and Address Organization Details Last Updated DateTime 98 % 98 % 78 /min 96.6 [degF] 20 /min 114 mm[Hg] 72 mm[Hg] Not Available [facility] 15:41:44 Date Recorded Oxygen saturation Oxygen saturation in Arterial blood by Pulse oximetry Heart rate Body temperature Respiratory rate Systolic blood pressure Diastolic blood pressure Provider Name and Address Organization Details Last Updated DateTime 96 % 96 % 71 /min 97.3 [degF] 22 /min 142 mm[Hg] 74 mm[Hg] Not Available [facility] 1 08:52:33 Date Recorded Heart rate Respiratory rate Body temperature Oxygen saturation Oxygen saturation in Arterial blood by Pulse oximetry Systolic blood pressure Diastolic blood pressure Provider Name and Address Organization Details Last Updated DateTime 2 75 /min 20 /min 97.4 [degF] 97 % 97 % 112 mm[Hg] 64 mm[Hg] Not Available [facility] 2 15:10:44 Social History Question Answer Notes LastModified by Organizat ion Details LastModified Time Tobacco Smoking Status Never Smoker SAE RICHARDS, MIKE [address], [place], [address], [place] [facility] 11/24/2020 15:43:25 Do You Have An Advance Directive? No Information not available 11/24/2020 What Is Your Code Status? Full Code [email or web address] Information not available 11/24/2020 Within The Past 12 Months, Has It Happened That The Food You Bought Just Didn't Last And You Didn't Have Money To Get More. No [email or web address] Information not available 11/24/2020 Within The Past 12 Months, Have You Worried That Your Food Would Run Out Before You Got Money To Buy More. No [email or web address] Information not available 11/24/2020 Fall Risk: Do You Feel Unsteady When Standing Or Walking? Yes [email or web address] Information not available 11/24/2020 We Know That How And When People Interact With Friends And Family Can Be Very Different From Person To Person. How Often Do You Have The Opportunity To See Or Talk To People That You Care About And Feel Close To? (Ex: Talking To Friends On The Phone Or Visiting Friends Or Family Or Going To Hinduism Or Club Meetings) 5 Or More Times Per Week [email or web address] Information not available 11/24/2020 Excessive Alcohol Or Drug Use No [email or web address] Information not available 11/24/2020 Does This Patient Have A PCP? Yes Information not available 11/24/2020 We Know From Many Of Our Patients That Covering All Of Their Costs Can Be Difficult At Times. This Can Cause Stress And Impact Health. In The Past Year, Have You Been Unable To Get Any Of The Following When It Was Really Needed? No [id number] Information not available 11/24/2020 What Is Your Housing Situation Today? I Have Housing Today But I Am Worried About Losing Housing In The Future) [id number] Information not available 11/24/2020 Would You Like Help Connecting To Resources? Housing [email or web address] Information not available 11/24/2020 Sex: Unknown Functional Status Question Answer Note LastModified by Organizat ion Details LastModified Time Do you use any illicit or recreational drugs? No [email or web address] Information not available 11/24/2020 Do you or have you ever used any other forms of tobacco or nicotine? No [email or web address] Information not available 11/24/2020 What is your level of alcohol consumption? None [id number] Information not available 11/24/2020 Mental Status None recorded. Family History Relationship Description Onset Age of this Age Resolved Age Notes LastModified by Organization Details LastModified Time Father Myocardial infarction [email or web address] Not available 1 15:41:03 Mother Malignant neoplastic disease breast and colon [id number] Not available 11/24/2020 15:42:39 Maternal Aunt Malignant neoplastic disease [email or web address] Not available 15:42:44 Maternal Uncle Malignant neoplastic disease [email or web address] Not available 15:42:52 Brother Malignant neoplastic disease brain [email or web address] Not available 15:43:01 Medical History Condition Response Coronary Artery Disease N COPD N Depression Y Diabetes N Cancer Y Stroke N Asthma N High Cholesterol Y Pulmonary Embolism N Hypertension Y Kidney Disease Y Gynecological HistoryNo gynecological history recorded. Obstetrics History GPAL:G 0 P 0 0 0 0 Past Encounters Encounter ID Performer Location Encounter Start Date Encounter Closed Date Diagnosis/Indication Diagnosis SNOMED-CT Code Diagnosis ICD10 Code Diagnosis Note [id number] SAE RICHARDS NP [facility] [address] [place] [address] 11/24/2020 15:26:27 11/24/2020 16:40:44 Cellulitis of toe of right foot [id number] 2011982 L03.031 Swelling o f bilateral lower limbs 069443638 M79.89 [id number] Savanna Ortiz NP [facility] [address] [place] [address] 11/29/2020 08:48:26 11/29/2020 11:25:38 Wound cellulitis 162282045 L03.90 Overview/H istory: Patient is a 75 year old alert female who presents for follow up right great toe cellulitis initially evaluated 11/24/2020. She has been taking her Clindamyci n as prescribed up until last evening due to developing heartburn. Patient recent history inclusive for bunionecto my 2 months ago; she did not call her [facility] surgeon to notify of suspected cellulitis . Her US result was negative and XRAY result is pending. Patient has not seen her Cardiologi st for follow up and has not contacted her [facility] s/p visit where she was prescribed increased dosing of Torsemide to 40 mg. She last saw her Renal provider 3 months ago. Exam: Afebrile 97.3. HR 71, S1, S2. Trachea midline, no JVD distention . LSCTA bilaterall y with exception of bases, fine crackles. ABD obese, non tender, + BS x4. No CVA tenderness . Right great toe erythema, equally warm when compared to opposite extremity. Bunyonecto my incision site well healed, no evidence of infection to surgical site. No open areas, no evidence of trauma, no crepitus. Cap refill wnl. DDx considered , but not limited to:Follow up cellulitis Work up/Results :Exam Plan/Discu ssion: Follow up with XRAY results. Stressed importance of completing all abx. Probiotics prescribed to assist patient with GI tolerance while taking abx. Stressed importance of follow up with [facility] surgeon, [facility] to discuss possible change in Toresemide dosing given fine crackles, and Renal provider. Patient has difficulty with transporta tion presently, encouraged her to contact Insurance and local Senior center for assist which she agrees to do ROSLYN. Proper Personal Protective Equipment (PPE), including {{gloves, eye protection , masks, and gowns, shoe covers shana ves, eye protection and masks glov es, eye protection gloves, eye protection , N95 mask, gown, and shoe covers* reed rgical mask with face-shiel d, gloves, gown and shoe covers gwen gical mask with face-shiel d, gloves}} were donned and doffed saeid do and all equipment cleaned using approved technique with germicidal disposable wipes prior to and after care of this patient according to On license of [facility]'s infection prevention protocols. In order to obtain further informatio n and compare any laboratory results/va lues, I have accessed {{old patient records* p atient records on the [employer] [facility] [employer] r eviewed records with the PCP}}. This informatio n was pertinent in my medical decision making today. [id number] FRANCES Gerber [facility] - HOME [address] [place] [address] 11/16/2021 14:49:27 11/16/2021 18:35:54 Acute coronary syndrome [id number] I24.9 Health Concerns Section Related Observation LastModified by Organization Detai ls LastModified Time None Recorded Concern Status LastModified by Organization Details LastModified Time None Recorded Advance Directives Directive N: Payers Insurance Date Sequence Insurance Name Policy Number Policy Leal Covered Member ID Leal Member ID Guarantor Name 11/25/2020 1 [facility] - MEDICARE PREFERRED (MEDICARE REPLACEMENT HMO) SCOIND Sada Murcia [id number] Sada Murcia 11/25/2020 1 *SELF PAY* Sada Murcia [id number] Sada Murcia 11/25/2020 1 [facility] - MEDICARE PREFERRED (MEDICARE REPLACEMENT HMO) SCOIND Sada Murcia [id number] Sada Murcia 11/22/2021 1 [facility] - MEDICARE PREFERRED (MEDICARE REPLACEMENT HMO) SCOIND Sada Murcia [id number] Sada Murcia Notes Date Note Type Note Provider Name and Address Organization Details Recorded Time 11/24/2020 text/html Sada Murcia is a 75 y/o F PMH obesity, HTN, remote breast CA s/p L lumpectomy, HChol, Stage III renal disease, depression, provoked remote DVT (2007), s/p R toe surgery w/ MTP fusion who presents with BLE pain, muscle cramps, swelling since she was home from acute rehab. Pt reports chronic back pain but no associated complaints. No Fever Pt reports she was in rehab a few weeks ago from a recent toe surgery (elective.) SAE RICHARDS, MIKE [address], [place], [address], [place] [facility] 11/26/2020 16:36:08 11/29/2020 text/html Patient is a 75 year old alert female who is known to and new to this provider. This visit serves as wound/cellulitis follow up. Patient had a right foot bunionectomy 2 months ago and developed warmth, swelling and pain to right great toe. She was seen by 11/24/2020 and prescribed a course of Clindamycin 300 mg Q 6 hours x 14 days this visit. I stopped taking them last night, they give me bad heartburn. She was prescribed Torsemide 40 mg x 3 days and Potassium 20 meq Q day x 3 days for course lung sounds that visit as well. She has resumed her regular dose of Torsemide 20 mg QD. Patient medical history significant for breast Ca, depression, hyperlipidemia, HTN, stage III kidney disease. Savanna Ortiz NP [address], [place], [address], [place] [facility] 11/29/2020 09:39:42 11/16/2021 text/html 76 YO F new to provider [facility], HLD, Breast Ca, CKD Stage III, and LBBB.Being seen today for what was listed as dyspnea on exertion that is increased form baseline. She admits to me she has chest pain to the left side of her chest and radiates into her left arm when we see her however. She also has increased SOB from baseline and she has bene more nauseous this week. She has not considered going to the hospital for this issue as of yet nor contacting her holiday detector operator. She does not want to burden her kids any further she states as her is on hospice and this is new as of 1 month ago. Otherwise she denies any otehr sxs ie fever, cough, numbness/tingling . FRANCES Weaver [address], [place], [address], [place] [facility] 11/16/2021 18:28:04 OBGyn Episode No OBEpisode recorded.
--- OUTSIDE RECORDS SUMMARY | 2024-07-06 13:28 | XMS_ITS | Encounter Summary ---
Author Organization [facility] [address] Address [address] [place] [address] Care Team Providers Care Softlines Supervisor Name Role Phone Emma Lanza MD Primary Care Provider + [phone] Reason for Visit * Reason Onset Date Comments Provider Call Back 06/29/2024 Encounter Details Date Type Department Care Team ([facility] st Contact Info) Description 06/29/2024 Telephone Gastroenterology - [address] [facility] [address] [facility] [address] [place] [address] Sylvie Delgadillo, MIKE [address] [facility] [address] [place], [place] [phone] Provider Call Back Social History Tobacco Use Types Packs/Day Years [...] Record ed Within the last 3 months, jun mills many times did you visit the emergency [...] care for your loved ones. For example, early childhood teacher assistant or elderly care for an older adult? [...] Orientation Straight 01/19/2024 11 :27 AM EST documented as of this encounter Progress Notes * Teresa Rutledge MA - 07/04/2024 11:44 AM EDT SPOKE WITH PT SHE NEEDS TO CALL THE [facility] TO SCHEDULE TEST. I HAVE PT NUMBER AGAIN [phone] * Camila Hood - 07/04/2024 11:40 AM EDT PT STATES THAT IS THE NUMBER FOR PHYSICAL THERAPY AND SHE WOULD NEED THE CORRECT NUMBER FOR HER TO SCHEDULE HER BARIUM SWALLOW TEST * Teresa Rutledge MA - 07/01/2024 1:19 PM EDT PT GIVEN [facility] NUMBER TO CALL TO GET SCHEDULED [phone] * Homa Echeverria - 07/01/2024 1:12 PM EDT Patient still has not received a call to schedule, no order in the system yet. Please call patient and get her in contact with the correct department so she can schedule her appointment please. Advised her Sylvie is not in today so she might have to wait until Sylvie is back in so we know where she will be sent * Teresa Rutledge MA - 06/30/2024 9:13 AM EDT Spoke with pt per Nuria could not do barium swallow because she states she can't stand up long enoughto do test so that test was CANCELLED. Dot ordered cineesophogram where I believe she just sits with the speech therapist and eats so they can help her swallow better. Anisa to call pt to schedule. * Homa Echeverria - 06/29/2024 2:39 PM EDT Patient calling because on 06/01, Sylvie ordered a barium swallow. She was wondering if Sylvie she wants her to continue with it. She would also like to know how this is done. Please advise. She would like to speak with sylvie. Patient was in today. documented in this encounter Plan of Treatment Upcoming Encounters Date Type Department Care Team (Late st Contact Info) Description 07/14/2024 10:00 AM EDT Office Visit [facility] [place] [address] [facility] [address] [place] [phone] Jeanne Gonzales MD [address] [facility] [address] [place] [address] 07/25/2024 9:30 AM EDT Ancillary Procedure [facility] Cardiology [facility] [address] [facility] [address] [place] [phone] 08/10/2024 1:40 PM EDT Consult [facility] Cardiology [facility] [address] [facility] [address] [place] [address] Linda Grissom NP [address] [facility] [address] [place] [address] 08/31/2024 9:00 AM EDT Appointment [facility] Xray [address] [place] [phone] 04/26/2025 11:00 AM EDT Office Visit [facility] Hematology Oncology [address] [place] [phone] Lauri Lovett MD [address] [place] [phone] 05/01/2025 10:30 AM EDT Office Visit [facility] [place] [address] [place] [phone] Duke Alanis MD [address] [facility] [address] [place] [address] documented as of this encounter Visit Diagnoses Not on filedocumented in this encounter Care Teams Softlines Supervisor Relationship Specialty Start Date End Date Emma Lanza MD [address] [place] [address] PCP - General Internal Medicine 10/11/21 documented as of this encounter
--- OUTSIDE RECORDS SUMMARY | 2024-07-06 13:28 | XMS_ITS | Encounter Summary ---
Author Organization [facility] Address [address] [place] [address] Care Team Providers Care Filter Tank Tender Helper Head Name Role Phone Emma Lanza MD Primary Care Provider + [phone] Reason for Referral * Cardiac Stress Testing (Routine) - Pending Review Specialty Diagnoses / Procedures Referred By Contac t Referred To Contact Cardiology Diagnoses Pre-operative cardiovascular examination Procedures Nuclear stress test with myocardial perfusion OK MYOCARDIAL PERFUSION IMAGING TOMOGRAPHIC MULTI STUDIES AT REST OR STRESS OK MYOCARDIAL PERFUSION IMAGING TOMOGRAPHIC SINGLE STUDY AT REST OR STRESS OK CARDIOVASCULAR STRESS TEST GLOBAL OK CV TMST/BIKE MAX/SUBMAX CONTINUOUS ECG MON/PHARM STRESS SUPVSR ONLY OK CV STRESS TEST/BIKE CONT ECG MON/PHARM STRESS INTERP & REPORT ONLY OK TEST STRESS CARDIOVASCULAR TRACING ONLY Kaley Duque NP [address] [place] [address] [place] [address] Phone: tel: fax: [facility] Referral ID Status Reason Start Date Expiration Date V isits Requested Visits Authorized [id number] Pending Review 07/06/2024 07/06/2025 3 3 Reason for Visit * Reason Comments Pre-op Exam Encounter Details Date Type Department Care Team (Late st Contact Info) Description 07/06/2024 8:10 AM EDT Consult [facility] Cardiology [facility] [place] [phone] Kaley Duque NP [address] [place] [address] [place] [address] Left bundle branch block (LBBB) (Primary Dx); Pre-operative cardiovascular examination Social History Tobacco Use Types Packs/Day Years [...] care for your loved ones. For example, director of early childhood or elderly care for an older adult? [...] AM EST documented as of this encounter Last Filed Vital Signs Vital Sign Reading Time Taken Comments Blood Pressure 130/58 07/06/2024 8:20 AM EDT Pulse 68 07/06/2024 8:20 AM EDT Temperature - - Respiratory Rate - - Oxygen Saturation 88% 07/06/2024 8:20 AM EDT Inhaled Oxygen Concentration - - Weight 115 kg (254 lb) 07/06/2024 8:20 AM EDT Height 157.5 cm (5' 2 ) 07/06/2024 8:20 AM EDT Body Mass Index 46.46 07/06/2024 8:20 AM EDT documented in this encounter Progress Notes * Kaley Duque NP - 07/06/2024 8:10 AM EDT Images from the original note were not included. [facility] PRIMARY EXPANDER MACHINE OPERATOR: René Mckinnon MD PCP: Emma Lanza MD HPI: Sada Murcia is a 79 y.o. old female with history of heart failure with preserved ejection fraction, pulmonary hypertension (followed by [facility] pulmonology), arterial hypertension, hyperlipidemia,chronic kidney disease (followed by Dr. Fernandez), chronic left bundle branch block, past history of DVT status post IVC filter, lower extremity venous insufficiency / lymphedema, carotid artery stenosis (followed by [facility]), ulcerative colitis with history of proctocolectomy and end ileostomy, obesity, osteoarthritis, anxiety, Parkinson's disease, and GERD. Cardiac testin. Echocardiogram (09/25/2019): Normal left ventricular systolic function, abnormal septal motion consistent with left bundle branch block, unable to evaluate the regional wall motion of the left ventricle, normal RV size and function, unable to evaluate cardiac valves. 2. Echocardiogram (03/16/2018): Low normal left ventricular systolic function with a left ventricular ejection fraction of 50 to 55%, normal RV size and function, mild TR, mild pulmonary hypertension. 3. Nuclear stress test (03/17/2018): Small fixed perfusion defect in the apical septal wall that is likely due to an artifact in the presence of a left bundle branch block. No evidence of ischemia. LVEF 44%. 4. Left heart catheterization (09/26/2019): No evidence of obstructive coronary artery disease. 5. Echocardiogram (December 2020): Technically difficult study. Echo contrast could not be administered. LV function was not adequately assessed. Mild MR. Mild TR. Mild pulmonary hypertension. 6. Echocardiogram (February 2021): Technically difficult study. Definity contrast was used. Normal left ventricular systolic function with a left ventricular ejection fraction of 60 to 65%. Mild LVH. Indeterminate LV diastolic function. Normal RV size and function. Mild TR. Mild pulmonary hypertension. 7. Right heart catheterization (04/25/2021): Mean pulmonary capillary wedge pressure was 15 (the pressure waveform appeared normal without significant V waves). Pulmonary artery pressure was 59/15 with a mean PAP of 34 mmHg. RV pressure was 54 with an RVEDP of 14. Mean basal pressure was done. Cardiac index 2.51. Conclusion: Right heart cath demonstrated moderately severe pulmonary hypertension with elevated PVR and a wedge pressure of 15 mmHg. The patient may have a component of diastolic heart failure but most of her pulmonary hypertension seems to be secondary to pulmonary cause (obesity hy poventilation syndrome or possible superimposed sleep apnea). 8. Lower extremity venous insufficiency study (10/22/2021): Mild reflux in the right GSV. Mild refluxin the left femoral vein. 9. Carotid artery duplex (February 2023): Moderate stenosis in the right ICA. Occlusion of the leftICA. 10. Echocardiogram (June 2023): Normal left ventricular systolic function with a left ventricular ejection fraction of 55 to 65%. Normal LV diastolic function. No aortic stenosis. No aortic insufficiency. Normal RV size and function. Mild pulmonary hypertension. No pericardial effusion. 11. Echocardiogram (April 2024): LVEF 60 to 65%, diastolic function indeterminant, RV mildly enlarged, RV function normal, mitral valve with mild regurgitation, tricuspid valve with mild regurgitation, mild Fabrizio hypertension, PASP is estimated at 40 mmHg. I have obtained verbal consent from Sada Murcia prior to the recording. I have advised Sada Murcia that she may refuse the recording and require the recording to be turned off at any time during this encounter. History of Present Illness The patient presents for a cardiovascular preoperative assessment. She is scheduled for a left foot hardware removal procedure with Dr. Palma on 08/15/2024. She reports feeling well overall but has a broken right foot, which she believes does not require surgical intervention. She experiences shortness of breath, which she attributes to her partial lung capacity, and notes that this symptom has remained stable. She denies chest discomfort. She denies palpitations, dizziness, syncope or presyncope. She does not experience orthopnea or paroxysmal nocturnal dyspnea. She declined a sleep referral in the past and continues to do so. She has discontinued her torsemide medication due to frequent urination, which she finds inconvenient given her busy schedule. She has noticed an increase in leg swelling since stopping the medication. She uses a lymphedema machine daily but does not believe it is effective. She has not been monitoring her weight regularly, but estimates it to be around 250 pounds. She was previously on a regimenof torsemide 80 mg daily, which was reduced to 40 mg daily during her last consultation with her electric organ checker. ACTIVE MEDICATIONS: Outpatient Medications Marked as Taking for the 07/06/24 encounter (Consult) with Kaley Duque NP Medication Sig Dispense Refill acetaminophen (TYLENOL) 500 mg tablet Take 2 tablets (1,000 mg total) by mouth every 8 (eight) hours for 10 days. 30 tablet 0 allopurinoL (ZYLOPRIM) 100 mg tablet Take 2 tablets (200 mg total) by mouth 1 (one) time each day. ARIPiprazole (ABILIFY) 5 mg tablet Take 2 mg by mouth 1 (one) time each day. aspirin 81 mg EC tablet Take 1 tablet (81 mg total) by mouth 1 (one) time each day. calcium carbonate (OS-JESSICA) 1250 mg (500 mg elemental calcium) chewable tablet Chew 1 tablet (1,250 mg total) 2 (two) times a day. carbidopa-levodopa (PARCOPA) 25-100 mg per disintegrating tablet Dissolve 1.5 tablets on top of thetongue 3 (three) times a day. cetirizine (ZyrTEC) 10 mg capsule Take 1 capsule (10 mg total) by mouth. cholecalciferol (VITAMIN D-3) 50 mcg (2,000 unit) tablet Take 1 tablet (2,000 Units total) by mouth1 (one) time each day. clopidogreL (PLAVIX) 75 mg tablet Take 1 tablet (75 mg total) by mouth 1 (one) time each day. cyanocobalamin (VITAMIN B-12) 100 mcg tablet Take 1 tablet (100 mcg total) by mouth 1 (one) time each day. docusate sodium (COLACE) 100 mg capsule Take 2 capsules (200 mg total) by mouth 2 (two) times a day. docusate sodium (COLACE) 100 mg capsule Take 1 capsule (100 mg total) by mouth 2 (two) times a day.14 each 0 hydrOXYzine HCL (ATARAX) 25 mg tablet Take 1 tablet (25 mg total) by mouth at bedtime. metoprolol tartrate (LOPRESSOR) 50 mg tablet Take 1 tablet (50 mg total) by mouth 2 (two) times a day. mirabegron (Myrbetriq) 50 mg tablet extended release 24 hr 24 hr tablet Take by mouth 1 (one) time each day. oxyCODONE (ROXICODONE) 5 mg immediate release tablet Take 1 tablet (5 mg total) by mouth every 6 (six) hours if needed for severe pain. Max Daily Amount: 20 mg 12 tablet 0 pantoprazole (PROTONIX) 40 mg EC tablet Take 1 tablet (40 mg total) by mouth 1 (one) time each day before breakfast. rosuvastatin (CRESTOR) 5 mg tablet Take 1 tablet (5 mg total) by mouth 1 (one) time each day. sertraline (ZOLOFT) 50 mg tablet Take 2 tablets (100 mg total) by mouth 1 (one) time each day. 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 (LCIS) Bilateral carotid artery stenosis DVT (deep venous thrombosis) ([facility]/HCC V24, [facility]/HCC V28) Chronic heart failure with preserved ejection fraction ([facility]/HCC V24, [facility]/HCC V28) Left bundle branch block (LBBB) Pulmonary hypertension ([facility]/HCC V24, [facility]/HCC V28) Primary hypertension Postmenopausal bleeding Perforation of uterus, initial encounter ALLERGIES: Allergies Allergen Reactions Codeine Respiratory Issues Sulfate Ion Renal Impairment Vancomycin Renal Impairment Coconut Rash Gabapentin Rash Nsaids (Non-Steroidal Anti-Inflammatory Drug) Unknown renal Flurbiprofen Other Latex Rash Penicillins Hives SOCIAL HISTORY: Social History Tobacco Use Smoking status: Never Smokeless tobacco: Never Substance Use Topics Alcohol use: Yes Comment: rarely PHYSICAL EXAM: Vitals: 07/06/24 0820 BP: 130/58 Pulse: 68 SpO2: (!) 88% Weight: 115 kg (254 lb) Height: 1.575 m (62 ) Physical Exam Constitutional: General: She is not in acute distress. Appearance: She is well-developed. She is obese. She is not diaphoretic. HENT: Head: Normocephalic. Eyes: Pupils: Pupils are equal, round, and reactive to light. Neck: Vascular: No carotid bruit, hepatojugular reflux or JVD. Cardiovascular: Rate and Rhythm: Normal rate and regular rhythm. Pulses: Normal pulses and intact distal pulses. Heart sounds: Normal heart sounds, S1 normal and S2 normal. No murmur heard. Pulmonary: Effort: Pulmonary effort is normal. Breath sounds: Normal breath sounds. No wheezing, rhonchi or rales. Chest: Chest wall: No tenderness. Abdominal: General: Bowel sounds are normal. There is no distension. Palpations: Abdomen is soft. Tenderness: There is no abdominal tenderness. Musculoskeletal: General: No deformity. Right lower leg: Edema present. Left lower leg: Edema present. Skin: General: Skin is warm and dry. Neurological: Mental Status: She is alert and oriented to person, place, and time. Psychiatric: Attention and Perception: Attention normal. Mood and Affect: Mood normal. Speech: Speech normal. EKG: ASSESSMENT/PLAN: Assessment & Plan 1. Preoperative evaluation: - Nuclear stress test to rule out ischemia - Resume torsemide at 40 mg daily to reduce fluid overload - Monitor weight daily to assess fluid retention - Follow up with patient again pre operatively for patient safety to re-evaluate volume status 2. HFpEF: - Significant fluid retention and swelling in legs noted - Restart torsemide at 40 mg daily - Emphasized importance of managing fluid retention to avoid heart failure exacerbation and potential hospitalization - Patient to continue using lymphedema machine daily - I've asked the patient to call if they develop worsening symptoms of heart failure such as increased shortness of breath, new or worsening cough, increased swelling in the legs or ankles, or weightgain of more than 2 pounds in one day or 4 pounds in one week. 3. Hypertension - Blood pressure well controlled today; continue on current medication regimen - I have reviewed with the patient the importance of a heart healthy lifestyle which includes eating a low-fat low-salt diet, getting regular exercise, maintaining a healthy weight, not smoking, and following up with routine medical care. 4. Hyperlipidemia - Continue statin - Will update lipid panel at next visit 5. Carotid artery stenosis - Patient to continue follow-up with [facility] - Continue on aspirin and Plavix as well as statin Risks, benefits, and alternatives of treatment: - Discussed importance of managing fluid retention to prevent heart failure exacerbation and hospitalization - Explained nuclear stress test in detail, including the use of regadenoson Follow-up: - Follow up before the surgery Thank you for allowing us to participate in the care of this patient. The patient will follow up in1 mo, sooner PRN. As per AHA guidelines and previously established plan of care by Dr. René Mckinnon MD, we discussed the following today: 1. Left bundle branch block (LBBB) 2. Pre-operative cardiovascular examination HFpEF, HTN, HLD, Carotid artery stenosis , preop card eval [facility] Cosigned by René Mckinnon MD at 07/06/2024 10:38 AM EDT documented in this encounter Plan of Treatment Upcoming Encounters Date Type Department Care Team (Late st Contact Info) Description 07/14/2024 10:00 AM EDT Office Visit [facility] [place] [address] [place] [phone] Jeanne Gonzales MD [address] [place] [address] 07/25/2024 9:30 AM EDT Ancillary Procedure [facility] Cardiology [facility] [address] [facility] [address] [place] [id number] 08/10/2024 1:40 PM EDT Consult [facility] Cardiology [facility] [address] [place] [address] Dr [address] [place] [id number] Linda Grissom NP [address] [place] [address] [address] [place] [address] 08/31/2024 9:00 AM EDT Appointment [facility] Xray [address] [place] [address] 04/26/2025 11:00 AM EDT Office Visit [facility] Hematology Oncology [address] [place] [phone] Lauri Lovett MD [address] [place] [phone] 05/01/2025 10:30 AM EDT Office Visit [facility] [place] [address] [place] [phone] Duke Alanis MD [address] [facility] [address] [place] [address] Scheduled Orders Name Type Priority Associated Diagnoses Orde r Schedule Nuclear stress test with myocardial perfusion Cardiac Nuclear Medicine Routine Pre-operative cardiovascular examination 1 Occurrences starting 07/06/2024 until 07/06/2025 documented as of this encounter Procedures Procedure Name Priority Date/Time Associated Diagnosis Comments ECG 12-LEAD Routine 07/06/2024 8:27 AM EDT Left bundle branch block (LBBB) documented in this encounter Results * ECG 12 lead (07/06/2024 8:27 AM EDT) us Kaley Duque NP ECG ORDERABLES Final Result GEMUSE documented in this encounter Visit Diagnoses Diagnosis Left bundle branch block (LBBB)- Primary Pre-operative cardiovascular examination documented in this encounter Historical Medications * This list may reflect changes made after this encounter. hydrOXYzine HCL (ATARAX) 25 mg tablet Take 1 tablet (25 mg total) by mouth at bedtime. added in this encounter Care Teams Filter Tank Tender Helper Head Relationship Specialty Start Date End Date Emma Lanza MD [address] [place] [address] PCP - General Internal Medicine 10/11/21 documented as of this encounter
--- OUTSIDE RECORDS SUMMARY | 2024-07-06 13:28 | XMS_ITS | Encounter Summary ---
Author Organization [facility] Address [address] [facility] [address] [place] [address] Phone Care Team Providers Care Nut Sorter Operator Name Role Phone Emma Lanza MD Primary Care Provider Encounter Details Date Type Department Care Team (Late st Contact Info) Description 08/27/2020 Orders Only [facility] [address] [facility] [address] [place] [address] Jd Fernandez MD [address] [address] Acute renal failure syndrome (HCC); Stage 3b chronic kidney disease (HCC); Hypertensive renal disease; Anemia of chronic disease; Vitamin D deficiency, not otherwise specified; Other specified renal tubulo-interstitial disease; Acute injury of kidney (HCC); Gout, not otherwise specified; Localized edema; Hypomagnesemia; Hypercalcemia Social History Tobacco Use Types Packs/Day Years Used Date Smoking Tobacco: Never Smokeless Tobacco: Never Alcohol Use Standard Drinks/Week Comments No 0 (1 standard drink = 0.6 oz pur e alcohol) Comments Unknown Sex and Gender Information Value Date Recorded Sex Assigned at Not on file Legal Sex Female 5:06 PM EST Gender Identity Not on file Sexual Orientation Not on file documented as of this encounter Plan of Treatment Upcoming Encounters Date Type Department Care Team (Late st Contact Info) Description 08/10/2024 9:20 AM EDT Office Visit [facility] [address] [facility] [address] [place] [address] Jd Fernandez MD [address] [facility] [address] [place] [address] documented as of this encounter Procedures Procedure Name Priority Date/Time Associated Diagnosis Comments PROTEIN / CREATININE RATIO, URINE Routine 09/12/2020 9:57 AM EDT Acute renal failure syndrome (HCC) Stage 3b chronic kidney disease (HCC) Hypertensive renal disease Anemia of chronic disease Vitamin D deficiency, not otherwise specified Other specified renal tubulo-interstitial disease Acute injury of kidney (HCC) Gout, not otherwise specified Localized edema Hypomagnesemia Hypercalcemia VITAMIN D 25 HYDROXY Routine 09/12/2020 9:57 AM EDT Acute renal failure syndrome (HCC) Stage 3b chronic kidney disease (HCC) Hypertensive renal disease Anemia of chronic disease Vitamin D deficiency, not otherwise specified Other specified renal tubulo-interstitial disease Acute injury of kidney (HCC) Gout, not otherwise specified Localized edema Hypomagnesemia Hypercalcemia CBC AND DIFFERENTIAL Routine 09/12/2020 9:57 AM EDT Acute renal failure syndrome (HCC) Stage 3b chronic kidney disease (HCC) Hypertensive renal disease Anemia of chronic disease Vitamin D deficiency, not otherwise specified Other specified renal tubulo-interstitial disease Acute injury of kidney (HCC) Gout, not otherwise specified Localized edema Hypomagnesemia Hypercalcemia URIC ACID Routine 09/12/2020 9:57 AM EDT Acute renal failure syndrome (HCC) Stage 3b chronic kidney disease (HCC) Hypertensive renal disease Anemia of chronic disease Vitamin D deficiency, not otherwise specified Other specified renal tubulo-interstitial disease Acute injury of kidney (HCC) Gout, not otherwise specified Localized edema Hypomagnesemia Hypercalcemia PTH, INTACT Routine 09/12/2020 9:57 AM EDT Acute renal failure syndrome (HCC) Stage 3b chronic kidney disease (HCC) Hypertensive renal disease Anemia of chronic disease Vitamin D deficiency, not otherwise specified Other specified renal tubulo-interstitial disease Acute injury of kidney (HCC) Gout, not otherwise specified Localized edema Hypomagnesemia Hypercalcemia MAGNESIUM Routine 09/12/2020 9:57 AM EDT Acute renal failure syndrome (HCC) Stage 3b chronic kidney disease (HCC) Hypertensive renal disease Anemia of chronic disease Vitamin D deficiency, not otherwise specified Other specified renal tubulo-interstitial disease Acute injury of kidney (HCC) Gout, not otherwise specified Localized edema Hypomagnesemia Hypercalcemia RENAL FUNCTION PANEL Routine 09/12/2020 9:57 AM EDT Acute renal failure syndrome (HCC) Stage 3b chronic kidney disease (HCC) Hypertensive renal disease Anemia of chronic disease Vitamin D deficiency, not otherwise specified Other specified renal tubulo-interstitial disease Acute injury of kidney (HCC) Gout, not otherwise specified Localized edema Hypomagnesemia Hypercalcemia documented in this encounter Results * (ABNORMAL) Vitamin D 25 Hydroxy (09/12/2020 9:57 AM EDT) Vitamin D, 25-Hydroxy 54.0(H) (20-50) NG/ML [facility] Comment: Testing performed or reported by [facility], a Service of [facility], [address] [place] [id number] Marianela Tabares MD, Cinder Block Maker Blood specimen (specimen) Venous blood / Unknown 09/12/2020 9:57 AM EDT 09/12/2020 9:58 AM EDT us Jd Fernandez MD LAB BLOOD ORDERABLES Final Re sult [facility] * Protein, Total, Random Urine w/Creatinine (Protein/Creat Ratio) (09/12/2020 9:57 AM EDT) Pathologist [facility] Protein/Creatin e Ratio 0.10 (0-0.2) [facility] Protein, Urine 5 MG/DL [facility] Creatinine, Urine 47.3 MG/DL [facility] Comment: Testing performed or reported by [facility], a Service of [facility], [address] [place] [id number] Marianela Tabares MD, Cinder Block Maker Urine specimen (specimen) Urine specimen obtained by clean catch procedure / Unknown 09/12/2020 9:57 AM EDT 09/12/2020 10:00 AM EDT us Jd Fernandez MD LAB URINE ORDERABLES Final Re sult Performing Organization Address City/[facility]/ZIP Co de Phone Number [facility] * Uric Acid (09/12/2020 9:57 AM EDT) Uric Acid 7.4 (1.6-7.6) MG/DL [facility] Comment: Testing performed or reported by [facility], a Service of [facility], [address] [place] [phone] Marianela Tabares MD, Cinder Block Maker Blood specimen (specimen) Venous blood / Unknown 09/12/2020 9:57 AM EDT 09/12/2020 9:58 AM EDT us Jd Fernandez MD LAB BLOOD ORDERABLES Final Re sult Performing Organization Address [facility] de Phone Number [facility] * (ABNORMAL) Renal Function Panel (09/12/2020 9:57 AM EDT) Glucose 90 (70-99) MG/DL [facility] BUN 25(H) (8-23) MG/DL [facility] Creatinine 1.6(H) (0.5-1.0) MG/DL [facility] Sodium 128(L) (133-145) MMOL/L [facility] Potassium 4.4 (3.6-5.2) MMOL/L [facility] Chloride 90(L) (98-107) MMOL/L [facility] Bicarbonate (CO2) 28 (22-29) MMOL/L [facility] Anion Gap 10 (4-17) [facility] Albumin 4.2 (3.4-4.8) GM/DL [facility] Calcium 9.7 (8.6-10.5) MG/DL [facility] Phosphorus, Serum 3.9 (2.5-4.5) MG/DL [facility] Est GFR Non 32 ML/MIN/1.7 3 M2 [facility] Comment: Creatinine based estimated glomerular filtration rate (eGFR) is calculated using the Chronic Kidney Disease Epidemiology Collaboration (CKD-EPI). The CKD-EPI creatinine equation has not been validated in children (<18 years), women or in some racial or ethnic subgroups other than Caucasians and Americans. EST GFR 37 ML/MIN/1.7 3 M2 [facility] Comment: Creatinine based estimated glomerular filtration rate (eGFR) is calculated using the Chronic Kidney Disease Epidemiology Collaboration (CKD-EPI). The CKD-EPI creatinine equation has not been validated in children (<18 years), women or in some racial or ethnic subgroups other than Caucasians and Americans. Testing performed or reported by [facility], a Service of [facility], [address] [place] [phone] Marianela Tabares MD, Cinder Block Maker Blood specimen (specimen) Venous blood / Unknown 09/12/2020 9:57 AM EDT 09/12/2020 9:58 AM EDT Result Amos Fernandez MD LAB BLOOD ORDERABLES Final Re sult Performing Organization Address [facility] Co de Phone Number [facility] * (ABNORMAL) PTH, Intact (09/12/2020 9:57 AM EDT) PTH, Intact 90(H) (15-65) PG/ML [facility] Comment: Testing performed or reported by [facility], a Service of [facility], [address] [place] [id number] Marianela Tabares MD, Cinder Block Maker Blood specimen (specimen) Venous blood / Unknown 09/12/2020 9:57 AM EDT 09/12/2020 9:58 AM EDT Result Amos Fernandez MD LAB BLOOD ORDERABLES Final Re sult Performing Organization Address [facility] Co de Phone Number [facility] * Magnesium (09/12/2020 9:57 AM EDT) Magnesium 1.6 (1.6-2.3) mg/dL [facility] Comment: Testing performed or reported by [facility], a Service of [address] [phone] Marianela Tabares MD, Cinder Block Maker Blood specimen (specimen) Venous blood / Unknown 09/12/2020 9:57 AM EDT 09/12/2020 9:58 AM EDT us Jd Fernandez MD LAB BLOOD ORDERABLES Final Re sult [facility] * (ABNORMAL) CBC and Differential (09/12/2020 9:57 AM EDT) White Blood Cells 8.1 (4.0-11.0) K/MM3 [facility] RBC 3.32(L) (4.20-5.40 ) M/MM3 [facility] Hgb 10.4(L) (11.7-15.5 ) GM/DL [facility] Hematocrit 32.3(L) (35.7-45.8 ) % [facility] MCV 97.3 (80.0-100. 0) FL [facility] MCH 31.3 (27.0-34.0 ) PG [facility] MCHC 32.2(L) (33.0-37.0 ) g/dL [facility] Platelets 248 (150-460) K/MM3 [facility] RDW-SD 50.2(H) (<47.0) FL [facility] MPV 8.7(L) (9.4-12.4) [place] [facility] nRBC Count 0.0 #/100 WBC'S [facility] NRBC Absolute 0.0 K/MM3 [facility] Neutrophils Abs Auto 5.2 (1.3-7.0) K/MM3 [facility] Lymphocytes Relative 1.5 (0.8-3.1) K/MM3 [facility] Monocytes 0.7 (0.4-0.9) K/MM3 [facility] Eosinophils Relative 0.5(H) (0.0-0.4) K/MM3 [facility] Basophil ABS 0.1 (0.0-0.1) K/MM3 [facility] Granulocytes Absolute 0.1 K/MM3 [facility] Neutrophils % Auto 64.5 (44-76) % [facility] Lymphs 18.5 (15-43) % [facility] Monocytes Absolute 9.2 (4.5-10.5) % [facility] Eosinophils 6.2(H) (0-6) % [facility] Basophils Relative 0.9 (0-2) % [facility] Immature Granulocytes 0.7 % [facility] Comment: Testing performed or reported by [facility], a Service of [facility], [address] [place] [phone] Marianela Tabares MD, Cinder Block Maker Blood specimen (specimen) Venous blood / Unknown 09/12/2020 9:57 AM EDT 09/12/2020 9:58 AM EDT us Jd Fernandez MD LAB BLOOD ORDERABLES Final Re sult [facility] documented in this encounter Visit Diagnoses Diagnosis Acute renal failure syndrome (HCC) Stage 3b chronic kidney disease (HCC) Hypertensive renal disease Anemia of chronic disease Vitamin D deficiency, not otherwise specified Other specified renal tubulo-interstitial disease Acute injury of kidney Gout, not otherwise specified Localized edema Hypomagnesemia Hypercalcemia documented in this encounter Care Teams Nut Sorter Operator Relationship Specialty Start Date End Date Emma Lanza MD [address] [place] [id number] PCP - General 02/27/20 documented as of this encounter
--- OUTSIDE RECORDS SUMMARY | 2024-07-06 13:28 | XMS_ITS | Encounter Summary ---
Author Organization [facility] Address [address] [address] Phone Care Team Providers Care K 9 Police Officer Name Role Phone Emma Lanza MD Primary Care Provider [phone] Encounter Details Date Type Department Care Team (Late Contact Info) Description 06/27/2024 Orders Only [facility] [address] [address] Jd Fernandez MD [address] [address] Other acute kidney failure (HCC); Stage 3b chronic kidney disease (HCC); Ulcerative colitis with complication, not otherwise specified (HCC); Wide QRS ventricular tachycardia (HCC); Vitamin D deficiency, not otherwise specified; Lymphedema; Localized edema; Hypomagnesemia; Hypertensive nephrosclerosis; Hypertension; Hypercalcemia Social History Tobacco Use Types Packs/Day [...] Encounters Date Type Department Care Team (Late Contact Info) Description 08/10/2024 9:20 AM EDT Office Visit [facility] [address] [address] Jd Fernandez MD [address] [address] documented as of this encounter Visit Diagnoses Diagnosis Other acute kidney failure (HCC) Stage 3b chronic kidney disease (HCC) Ulcerative colitis with complication, not otherwise specified (HCC) Wide QRS ventricular tachycardia (HCC) Vitamin D deficiency, not otherwise specified Lymphedema Localized edema Hypomagnesemia Hypertensive nephrosclerosis Hypertension Hypercalcemia documented in this encounter Care Teams K 9 Police Officer Relationship Specialty Start Date End Date Emma Lanza MD [address] [place] [phone] PCP - General 02/27/20 documented as of this encounter
--- OUTSIDE RECORDS SUMMARY | 2024-07-06 13:28 | XMS_ITS | Clinical Summary ---
Author Organization [facility] Address [address] [place] [address] Care Team Providers Care Base Ply Hand Name Role Phone Unavailable Primary Care Provider Unavailabl e Source Comments PLEASE NOTE, if this patient is a minor, it may be UNLAWFUL to discuss sensitive information that is contained in these records (such as FAMILY PLANNING, MENTAL HEALTH or SUBSTANCE ABUSE) with the minor patient's parent or other person without the patient's specific authorization.[facility] Medications acetaminophen (TYLENOL) 500 mg tabletIndication s:Cementum caries Take 1 Tablet by mouth every 6 (six) hours as needed for pain 20 Tablet 12/16/2023 Active clindamycin (CLEOCIN) 150 mg capsuleIndicatio ns:Dental caries on smooth surface penetrating into pulp Take 1 Capsule by mouth 3 (three) times daily 21 Capsule 12/17/2023 Active nystatin (MYCOSTATIN) 100,000 unit/mL suspensionIndica tions:Oral thrush Use 5 ml as oral rinse. Use 4 times daily. Use for 14 days. Do not eat or drink or rinse out for 30 min after using it. 473 mL 06/01/2024 Active Active Problems No known active problems Encounters Date Type Department Care Team Description 06/20/2024 10:20 AM EDT Office Visit [address] [address] Luz Marina Dash DDS Encounter for dental examination (Primary Dx) 06/01/2024 9:40 AM EDT Office Visit [address] [address] Luz Marina Dash DDS Oral thrush (Primary Dx) 05/25/2024 1:40 PM EDT Office Visit [address] [address] Sheila David RHD Encounter for dental examination (Primary Dx); Caries; Chronic gingivitis, plaque induced from Last 3 Months Social History Tobacco Use Types Packs/Day Years Used Date Smoking Tobacco: Never Smokeless Tobacco: Never Tobacco Cessation:Counseling Given: Not Answered Social Connections Answer Date Recorded Connectedness 0 10/29/2023 Financial Resource Strain Answer Date R ecorded Financial Resource Strain 0 2022 Stress Answer Date Recorded Stress 0 12/30/2022 Physical Activity Answer Date Recorded Physical Activity 0 12/30/2022 Food Insecurity Answer Date Recorded Food 0 11/12/2023 Transportation Needs Answer Date Record ed Transportation 0 12/30/2022 Housing Stability Answer Date Recorded Housing 0 12/30/2022 Safety and Environment Answer Date Archie rded Safety 0 12/30/2022 Utilities Answer Date Recorded Utilities 0 12/30/2022 Employment Answer Date Recorded Stress 0 10/29/2023 Comments Unknown Sex and Gender Information Value Date Recorded Sex Assigned at Not on file Legal Sex Female 7:53 AM PDT Gender Identity Not on file Sexual Orientation Not on file Last Filed Vital Signs Vital Sign Reading Time Taken Comments Blood Pressure 132/68 05/25/2024 1:33 PM EDT Pulse 68 05/25/2024 1:33 PM EDT Temperature - - Respiratory Rate - - Oxygen Saturation - - Inhaled Oxygen Concentration - - Weight - - Height - - Body Mass Index - - Plan of Treatment Upcoming Encounters Date Type Department Care Team (Late st Contact Info) Description 08/03/2024 11:00 AM EDT Office Visit [facility] [address] [place] [phone] Otf Lynch, DDS [address] [place] [address] Health Maintenance Due Date Last Done Comments Hepatitis C Screening 1945 Imm-DTaP/Tdap/Td (1 - Tdap) 1965 Imm-Zoster, Recombinant (1 of 2) 01/10/1996 Bone Density Screening 2011 Falls Prevention 2011 [id number] ( season) 2023 12/24/2020, 03/20/2020, 02/28/2020 Alcohol and Drug Screen 02/17/2024 Depression Annual Screen 02/17/2024 Tobacco Screening 12/01/2024 12/02/2023 Hypertension Screening (#1) 05/25/2025 Dental BW 05/27/2025 05/25/2024, 08/12/2023 Dental Examination 05/27/2025 05/25/2024, 08/12/2023 Dental Perio Charting 05/27/2025 05/25/2024 Dental Prophy 05/27/2025 05/25/2024, 08/12/2023 Dental FMX/Pano 08/13/2028 08/12/2023 Imm-Pneumococcal 65+ Completed 10/27/2017, 07/17/2015, 11/05/2014, Additional history exists Imm-Influenza Completed 12/07/2023, 11/16, 12/17/2021, Additional history exists Procedures Procedure Name Priority Date/Time Associated Diagnosis Comments INTRAORAL - PERIAPICAL FIRST RADIOGRAPHIC IMAGE Routine 06/20/2024 10:20 AM EDT Encounter for dental examination LIMITED ORAL EVALUATION - PROBLEM FOCUSED Routine 06/20/2024 10:20 AM EDT Encounter for dental examination LIMITED ORAL EVALUATION - PROBLEM FOCUSED Routine 06/01/2024 9:40 AM EDT Oral thrush PERIODIC ORAL EVALUATION ESTABLISHED PATIENT Routine 05/25/2024 1:40 PM EDT Caries Encounter for dental examination DENTAL CASE MANAGEMENT - MOTIVATIONAL INTV Routine 05/25/2024 1:40 PM EDT Caries Encounter for dental examination PROPHYLAXIS - ADULT Routine 05/25/2024 1 :40 PM EDT Caries Encounter for dental examination 1 INTRAORAL - PERIAPICAL EACH ADD RADIOGRAPH IMAGE Routine 05/25/2024 1:40 PM EDT Caries Encounter for dental examination COMP PERIODONTAL EVALUATION - NEW/EST PATIENT Routine 05/25/2024 1:40 PM EDT Caries Encounter for dental examination 24 INTRAORAL - PERIAPICAL FIRST RADIOGRAPHIC IMAGE Routine 05/25/2024 1:40 PM EDT Caries Encounter for dental examination BITEWINGS - FOUR RADIOGRAPHIC IMAGES Routine 05/25/2024 1:40 PM EDT Caries Encounter for dental examination CARIES RISK ASSESSMENT & DOC FINDING HIGH RISK Routine 05/25/2024 1:40 PM EDT Caries Encounter for dental examination NUTRITIONAL COUNSELING CONTROL OF DENTAL DISEASE Routine 05/25/2024 1:40 PM EDT Caries Encounter for dental examination ORAL HYGIENE INSTRUCTIONS Routine 05/25/2024 1:40 PM EDT Caries Encounter for dental examination ORAL CANCER SCREENING Routine 05/25/2024 1:40 PM EDT Caries Encounter for dental examination CASE PRESENTATION SUBS DTL & EXTENSIVE TX PLN Routine 05/25/2024 1:40 PM EDT Encounter for dental examination INTRAORAL - COMP SERIES OF RADIOGRAPHIC IMAGES Routine 08/12/2023 1:40 PM EDT Caries Defective dental denominational Dental caries on smooth surface penetrating into pulp Caries of enamel (incipient) Encounter for dental examination and cleaning with abnormal findings from Last 3 Months or Most Recently Relevant to Health Maintenance Insurance [employer] [place] Member Subscriber Plan / Payer ( fective 2024-Present) Name:Sada Murcia Relation to Subscriber:Self Name:Sada Murcia Payer ID:[id number] Group ID:Not on file Type:Medicaid Address: [place] [id number]
--- OUTSIDE RECORDS SUMMARY | 2024-07-06 13:28 | XMS_ITS | Encounter Summary ---
Author Organization [facility] Address [address] [facility] [address] [place] [address] Phone Care Team Providers Care Radiation Therapy Technician Name Role Phone Emma Lanza MD Primary Care Provider Reason for Visit * Reason Comments Med Refill Encounter Details Date Type Department Care Team (Late Contact Info) Description 07/04/2024 Refill [facility] [address] [place] [address] Jd Fernandez MD [address] [place] [phone] Social History Tobacco Use Types Packs/Day Years [...] Visit [facility] [address] [phone] Jd Fernandez MD [facility] [address] [address] documented as of this encounter Visit Diagnoses Not on filedocumented in this encounter Care Teams Radiation Therapy Technician Relationship Specialty Start Date End Date Emma Lanza MD [address] [place] [id number] PCP - General 02/27/20 documented as of this encounter
--- OUTSIDE RECORDS SUMMARY | 2024-07-06 13:28 | XMS_ITS | Clinical Summary ---
Author Organization [facility] Address [address] [facility] [address] [place] [address] Phone Care Team Providers Care Hospitalist Program Director Name Role Phone Emma Lanza MD Primary Care Provider Allergies Active Allergy Reactions Criticality Noted Date Comments Adhesive Tape Other (see comments) 08/13/2020 Adhesive bandage. Azithromycin Other (see comments) 08/13/2020 Coconut Flavoring Agent (Non-Screening) 02/19/2021 Codeine Other (see comments) 05/25/2020 Flurbiprofen 03/03/2019 Gabapentin Other (see comments) 11/04/2023 Iodinated Contrast Media 06/18/2022 Nsaids Other (see comments) 05/25/2020 Penicillins Other (see comments) 05/25/2020 Sulfa Antibiotics Other (see comments) 05/26/19 Vancomycin Other (see comments) 05/25/2020 Medications fluticasone (FLONASE) 50 MCG/ACT nasal spray Administer 1 spray into each nostril if needed 05/18/19 21 Active rosuvastatin (CRESTOR) 5 MG tablet Take 1 tablet by mouth 1 (one) time each day Active Multiple Vitamins-Mine rals (Centrum Silver 50+Women) tablet Take 1 tablet by mouth 1 (one) time each day Active ARIPiprazole (ABILIFY) 5 MG tablet Take 5 mg by mouth 1 (one) time each day 08/02/19 21 Active acetaminophen (TYLENOL) 500 MG tablet acetaminophen 500 mg tablet TAKE 2 TABLETS BY MOUTH EVERY 8 HOURS NEEDED FOR PAIN 10/10/19 21 Active cetirizine (ZyrTEC) 10 MG tablet Take 10 mg by mouth 11/27/19 20 Active nystatin (MYCOSTATIN) ointment nystatin 100,000 unit/gram topical ointment APPLY TO AFFECTED AREA 3 TIMES A DAY Active aspirin (ST CHRISTOPHER) 81 MG EC tablet Take 81 mg by mouth 1 (one) time each day Active metoprolol tartrate 25 MG tablet Take 50 mg by mouth in the morning and 50 mg in the evening. 09/26/19 22 Active pantoprazole (PROTONIX) 40 MG EC tablet Take 40 mg by mouth 1 (one) time each day 09/20/19 22 Active sertraline (ZOLOFT) 100 MG tablet Take 100 mg by mouth 1 (one) time each day 06/12/19 23 Active clopidogrel (PLAVIX) 75 MG tablet Take 75 mg by mouth 1 (one) time each day 10/17/19 23 Active Calcium Carbonate (CALCIUM 500 PO) Take 500 mg by mouth 1 (one) time each day Active cholecalcifer ol (VITAMIN D-3) 10 MCG (400 UNIT) tablet Take 400 Units by mouth 1 (one) time each day Active traMADol (Ultram) 50 MG tablet Take 1 tablet (50 mg total) by mouth every 12 (twelve) hours if needed for moderate pain for up to 10 doses 10 tablet 02/25/19 24 Active carbidopa-lev odopa (SINEMET) 25-100 MG per tablet Take 1 tablet by mouth in the morning and 1 tablet in the evening and 1 tablet before bedtime. Active cyanocobalami n (VITAMIN B-12) 100 MCG tablet Take 100 mcg by mouth 1 (one) time each day 05/28/19 24 Active docusate sodium (COLACE) 50 MG capsule Take 100 mg by mouth in the morning and 100 mg in the evening. 2 tabs in the morning and 1 tab in the afternoon. Active Magnesium Oxide -Mg Supplement 200 MG tablet Take 1 tablet by mouth 1 (one) time each day 90 tablet 3 09/09/19 24 Active allopurinol (ZYLOPRIM) 100 MG tablet Take 2 tablets (200 mg total) by mouth 1 (one) time each day 180 tablet 3 11/04/19 24 025 Active torsemide (DEMADEX) 20 MG tablet TAKE 2 TABLETS (40MG) BY MOUTH 1 TIME EACH DAY. 180 tablet 3 07/05/19 25 Active Torsemide 40 MG tablet Take 1 tablet by mouth 1 (one) time each day 90 tablet 3 07/01/19 24 025 Discontinued Active Problems Problem Noted Date Diagnosed Date Mitral valve regurgitation 12/16/2021 H/O: ileostomy 03/26/2021 History of fall 03/26/2021 Infiltrating lobular carcinoma of breast 022 Peripheral neuropathy 03/26/2021 Pernicious anemia 03/26/2021 Severe obesity 03/26/2021 Lymphedema 03/22/2021 Aortic valve disorder 02/19/2021 Left bundle-branch block 02/19/2021 Heart failure with normal ejection fraction 12/17 Overview (03/26/2021): Last Assessment & Plan: The patient has [...] I had a conversation with the patient's herd tester (Dr. Fernandez). During the conversation, we discussed [...] have a follow up in his office. Wide QRS ventricular tachycardia 12/24/2020 Overview (03/26/2021): Last Assessment & Plan: The patient has a history of an episode of nonsustained ventricular tachycardia during hospitalization at [facility] in September 2019. At that time, she was evaluated by the electrophysiology service. The patient underwent a left heart catheterization that did not show any significant coronary artery disease. The recommendation was for the patient to continue with her beta-johanny therapy. 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 Nodule of lung 08/13/2020 Overview (03/26/2021): R lung, per x-ray for rib pain. CT ordered 05/23/2020. Other specified renal tubulo-interstitial diseas e 05/28/2020 Gout, not otherwise specified 05/28/2020 Localized edema 05/28/2020 Hypomagnesemia 05/28/2020 Hypercalcemia 05/28/2020 Acute nontraumatic kidney injury 05/25/2020 Stage 3b chronic kidney disease 05/25/2020 Hypertensive nephrosclerosis 05/25/2020 Cyst of ovary 10/21/2017 Overview (03/26/2021): CT 11/27/2019, no change from 2017 US, 3 cm, Right Hypertension 10/21/2017 Overview (03/26/2021): Last Assessment & Plan: The patient has a history of arterial hypertension. The patient's blood pressure today was noted to be well controlled. We'll continue the current antihypertensive medication regimen. Anemia of chronic disease 05/06/2013 Atherosclerosis of aorta 05/06/2013 Overview (03/26/2021): Update 09/28/2019 CT: Severe vascular calcification but no aneurysm. Vitamin D deficiency 10/05/2012 Resolved Problems Problem Noted Date Diagnosed Date Resolved Date Chronic back pain 03/26/2021 07/24/2021 Cobalamin deficiency 03/26/2021 022 Disorder of vein 03/26/2021 07/16/2021 Incontinence of feces 03/26/20212022 Patient encounter status 03/26/202109/2021 Hyperuricemia 09/17/2020 09/17/2021 Osteoarthritis 10/21/2017 09/17/2020 Overview (05/25/2020): Cervical, Thoracic, & Lumbosacral Spine (Spinal Stenosis), Shoulders, Right Ankle Encounters Date Type Department Care Team Description 07/04/2024 Refill [facility] [address] [place] [address] Jd Fernandez MD 06/27/2024 Orders Only [facility] [address] [place] [phone] Jd Fernandez MD Other acute kidney failure (HCC); Stage 3b chronic kidney disease (HCC); Ulcerative colitis with complication, not otherwise specified (HCC); Wide QRS ventricular tachycardia (HCC); Vitamin D deficiency, not otherwise specified; Lymphedema; Localized edema; Hypomagnesemia; Hypertensive nephrosclerosis; Hypertension; Hypercalcemia 05/10/2024 Office Communication [facility] [address] [phone] Amaya Hutchison from Last 3 Months Immunizations Immunization Administration Dates Next Due Influenza Split High Dose Pr eservative Free IM 11/16/2018 Influenza TIV (IM) 11/11/2018,11/05/2016, 015 Influenza Whole 11/11/2018,10/27/2017,10/29/2016 Influenza, Unspecified 10/25/2019,2015,11/08/2014,03/02 Pfizer SARS-COV-2 12/24/2020,03/20/2020,02/27/19 21 Pneumococcal Conjugate 13-Valent 018,10/27/2017,11/05/2014,07/11 Pneumococcal Polysaccharide 07/17/2015, 5 Social History Tobacco Use Types Packs/Day Years Used Date Smoking Tobacco: Never Smokeless Tobacco: Never Tobacco Cessation:Counseling Given: Not Answered Alcohol Use Standard Drinks/Week Comments No 0 (1 standard drink = 0.6 oz pur e alcohol) Comments Unknown Sex and Gender Information Value Date Recorded Sex Assigned at Not on file Legal Sex Female 5:06 PM EST Gender Identity Not on file Sexual Orientation Not on file Last Filed Vital Signs Vital Sign Reading Time Taken Comments Blood Pressure 118/60 03/30/2024 9:39 AM EST Pulse 73 03/30/2024 9:39 AM EST Temperature - - Respiratory Rate - - Oxygen Saturation 98% 03/30/2024 9:39 AM EST Inhaled Oxygen Concentration - - Weight 115 kg (252 lb 9.6 oz) 03/30/2024 9:39 AM EST Height 157.5 cm (5' 2 ) 07/01/2023 9:02 AM EDT Body Mass Index 46.2 07/01/2023 9:02 AM EDT Plan of Treatment Upcoming Encounters Date Type Department Care Team (Late st Contact Info) Description 08/10/2024 9:20 AM EDT Office Visit [facility] [address] [phone] Jd Fernandez MD [address] [facility] [address] [place] [id number] Health Maintenance Due Date Last Done Comments Influenza Vaccine (Season Ended) 2024 10/25/2019, 11/16/2018, 11/11/2018, Additional history exists Pneumococcal Vaccine: 50+ Years Completed 10/27/2017, 10/27/2017, 07/17/2015, Additional history exists Pneumococcal Vaccine: Peds (0 to 5 Years) and At-Risk Patients (6 to 49 Years) Discontinued 10/27/2017, 10/27/2017, 07/17/2015, Additional history exists Hepatitis B Vaccine Aged Out No longe r eligible based on patient's age to complete this topic Insurance Medicaid [place] Care Teams Hospitalist Program Director Relationship Specialty Start Date End Date Emma Lanza MD [address] [place] [id number] PCP - General 02/27/20
== END 2024-07-06 13:44 | disposition home or self-care (01) ==
LOC: HO.HSMS 12:49
PROVIDERS: PCP Internal Medicine; Visit Provider Nurse Practitioner Family
DX: G25.9 Extrapyramidal and movement disorder, unspecified (principal); R26.9 Unspecified abnormalities of gait and mobility; R41.3 Other amnesia; R25.1 Tremor, unspecified; R25.2 Cramp and spasm
CPT/HCPCS: 99214

== ENCOUNTER → 2024-07-06 12:49 | Outpatient (BNVA) | payer OTHER, SELFPAY | PROVIDERS: PCP Internal Medicine; Visit Provider Nurse Practitioner Family ==

== ENCOUNTER 2024-08-30 10:17 | Outpatient (AMB) | payer OTHER, SELFPAY ==
--- NOTE | 2024-08-30 10:17 | A.OFFVIS_ITS ---
Intake Visit Reasons: follow up patient request Intake Note: Patient presents as a telehealth today for a follow up per patient request. Allergies codeine Allergy (Severe, Verified 08/30/24 10:17) Confusion Penicillins Allergy (Unknown, Verified 08/30/24 10:17) swelling tongue Sulfa (Sulfonamide Antibiotics) Allergy (Unknown, Verified 08/30/24 10:17) Unknown Medication List - Last Reconciled 08/30/24 by MARQUIS Lockett allopurinol 400 mg PO DAILY aripiprazole 5 mg PO DAILY aspirin 81 mg PO DAILY bumetanide 1 mg PO BID calcium carbonate (Pedro-Gest Antacid) mg PO carbidopa-levodopa 25-100 mg ER 2 tabs before breakfast, and 1 tab before lunch and dinner. orally 30 minutes before meal/protein.; 30 days cholecalciferol (vitamin D3) 50 mcg PO DAILY clopidogrel 75 mg PO DAILY cyanocobalamin (vitamin B-12) 100 mcg PO DAILY 90 days hydroxyzine HCl 10 mg PO BEDTIME PRN magnesium oxide 200 mg PO DAILY metoprolol tartrate 50 mg PO BID mirabegron ER (Myrbetriq) 50 mg PO DAILY pantoprazole 40 mg PO BID rosuvastatin 5 mg PO DAILY sertraline 100 mg PO DAILY torsemide 20 mg PO BID HPI Comments Details: 79-yr-old female presents for f/u telephone visit of movement d/o. Pt is unable to utilize [employer] technology. Pt requested urgent telephone visit to discuss recent falls and hallucinations. She reports she was hospitalized 08/11/23 for treatment of fluid overload. Review of [facility] admission 08/10/2024 through 08/14/2024, showed the patient had seen her aquatic laborer for preoperative evaluation for a orthopedic procedure, however patient was found to be in fluid overload having gain 30 lb in the previous 6 months- and patient was transferred to the hospital. During admission, patient was treated for acute on chronic diastolic CHF and hypokalemia, was attributed to patient having stopped her diuretics txs. Hypokalemia was repleted with potassium supplementation. Patient also had nonspecific abdominal pain, with 08/13/2024 abdominal ultrasound showing hepatomegaly with diffuse fatty infiltration, the abdominal pain had resolved upon discharge, and patient was advised to follow a low-fat carbohydrate restricted diet. Patient was discharged with home nursing and PT. On review of recent [facility] portal, patient had a ER evaluation on 08/09/2024 for eval of a fall. UA showed + bacteria and WBCs/RBCs- unclear if this was addressed during subsequent hospitalization. Patient states she can just walking and all of a sudden fall to the floor. Reports the falling was occurring before and after this recent hospitalization and the falls are not better/worse since d/c home. The falls are making it harder to walk w/ her walker. She has chronic LE lymphedema. Denies orthostatic lightheaded dizziness, or LOC. Per nephrology note- pt has a h/o OH d/t urosepsis which required tx w/ midodrine- however pt does not recall this. She is seeing people in her house or sees a spot like it is moving. She is compliant w/ CD-LD ER 25-100mg- 2 tabs qam and then 1 tab bid. She does not notice any chnage in falls or hallucinations r/t her CD-LD doses. Previous HPI, 07/06/2024: Pt reports she broke her right foot 2 weeks ago at her dentist's office. States she was standing up after toileting, pulling up her pants, when all of a sudden she lost full control of her legs and they just gave out, she tried to prevent herself from falling by grabbing the grab bars but she could not hold on, and just fell. She required assist from the dental staff to get up. She went home via her transportation and then went to [facility]. She was given a walking shoe and advised to f/u with her ortho. Initially she was using her w/c more. She states ortho advised her to continue using the walking shoe and start walking w/ her walker again. Taking CD-LD IR 25-100mg 1.5 tabs po 3 x's per day since last visit (increased from 1 tab t.i.d.), which she feels helped some. ADL's: Ind but slower. She has a CVICU RN twice a week, who helps w/ home care. Swallowing: Continues to have difficulty swallowing, states cannot eat for long before her throat closes up on her- she is still waiting to have a f/u MBS through [facility], Sylvie DANIELS/Dr Duckworth. Voice: Hoarseness- ENT felt this was r/t h/o lung resection. Drooling: Denies Orthostatic lightheadedness: Sometimes, usually brief. Taking 4 20oz bottles of water per day. Constipation: Has an ostomy Urinary symptoms: urinary frequency- thinks it is a bit more, so she is prone to skipping her diuretic tx. Tremor: Tremor is a bit better. Dyskinesia: States her LLE will jump on its own, but had BLE involuntary leg movements at night. Stiffness: Denies stiffness. Legs can cramp/tighten when elevating them, resolves with putting her legs down. Gait changes: States her gait varies- some days better than others, still affected by her BLE edema- using a BLE compression device but she is not sure it helps. Maybe prone totrip on her own feet but not fall. She is f/b pulmonology/cardiology. Uses a walker. Seated walker was not helpful. Freezing: Denies Falls: Denies any other interval falls. Mood: Ok Hallucinations: Is now seeing things that are not there which is freaking me out - sees people, a horse- now during the night and day. Memory: Feels memory is not good- feels forgetful. She previously had neuropsych eval, which did show cognitive deficits that did not meet criteria for a major neurocognitive d/o, though possibility was raised that her presentation could be seen in Parkinsonian d/o's. Sleep: Sleeping is worse, sleeping 1-2 hours and then up for 1-2 hours. Overall states not sleeping > 2-3 hours. Denies daytime naps. Exercise: None. Still walking to the dining room, to the mailroom. Other: The other day, she had an isolated sensation of Right leg feeling like it was in a knot and then jsut let go (did not last long), while sitting w/ legs elevated in the evening. [facility] Medical History Vitamin D deficiency Vitamin B12 deficiency Recurrent major depression Pernicious anemia Peripheral nerve disease Mitral valvular regurgitation Lumbar spondylolysis Left bundle branch block HTN (hypertension) HLD (hyperlipidemia) H/O methicillin resistant Staphylococcus aureus Hearing loss Gout GERD (gastroesophageal reflux disease) Female stress incontinence Cyst of ovary COPD (chronic obstructive pulmonary disease) Chronic back pain Atherosclerosis of both carotid arteries Atherosclerosis of aorta Aortic valve disorder Anxiety Anemia of chronic disease Allergic rhinitis Surgical History History of ileostomy Hx of appendectomy H/O shoulder surgery H/O knee surgery Hx of cholecystectomy Family History Father History of heart attack Mother Cancer Brother Brain cancer Social History Alcohol intake: never Patient Tobacco Use Status: Never used Tobacco Physical Exam Const General: cooperative and no acute distress Resp Effort & Inspection: normal respiratory effort and able to speak in complete sentences Neuro Other: General: A&O x's 3 Voice: Soft, hoarse Psych: Pleasant affect. Telehealth Telehealth Telehealth Platform: Telephone Location of provider rendering services: practice address Location of patient: address on file Patient Identification confirmed using: Name, : Yes Telehealth method: voice only Patient verbally consented to treatment: Yes Patient verbally consented to billing insurance company: Yes Patient informed of any privacy concerns related to visit: Yes Minutes spent on Phone/Video with Pt.: 22 Assessment & Plan Assessment & Plan (1) Movement disorder: Code(s): G25.9 - Extrapyramidal and movement disorder, unspecified Category: Medical (2) Muscle cramps: Code(s): R25.2 - Cramp and spasm Category: Medical (3) Tremor: Code(s): R25.1 - Tremor, unspecified Category: Medical (4) Gait difficulty: Code(s): R26.9 - Unspecified abnormalities of gait and mobility Category: Medical (5) Memory difficulties: Code(s): R41.3 - Other amnesia Category: Medical (6) Parkinson's disease with dyskinesia: Code(s): G20.B1 - Parkinson's disease with dyskinesia, without mention of fluctuations Category: Medical Qualifiers: Fluctuating manifestations: without fluctuating manifestations Qualified Code(s): G20.B1 - Parkinson's disease with dyskinesia, without mention of fluctuations (7) Frequent falls: Code(s): R29.6 - Repeated falls Category: Medical (8) Hallucination, visual: Code(s): R44.1 - Visual hallucinations Category: Medical Plan Reviewed [facility] admission notes and [facility] ER notes after telephone visit w/ pt. * Will reach out to pt r/t +UA prior to [facility] hospitalization. * Reviewed recent nephrology notes. * We will reach out to the physical therapist to see if PT can obtain orthostatic blood pressure and HR x's3 * Overlook nursing vna- PT [place] * If OH identified, we will touch base with either or both compensation and benefits advisor and aquatic laborer to discuss tx options, as this may increase risks for falls. * Start Rytary 23.75-95mg 2 caps 3 x's per day- in hopes this helps tremor and bradykinesia w/o exacerbating hallucinations. * Until Rytary available, reduce the carbidopa levodopa ER 25-100 mg to 1 tab 3 times a day. * Then once Rytary available, stop CD-LD ER. * Previous trials: CD-LD IR- not tolerated- caused dyskinesias and hallucinations. * Follow-up with cardiology and nephrology as scheduled. * René Olmos-Galo- okay so he has your aquatic laborer * Dr Thompson and Janice compensation and benefits advisor Medications: New carbidopa-levodopa 23.75-95 mg ER (Rytary) 2 caps PO TID 180 caps 3RF 30 days Coding Level of Care Code Tele Est Pt Level 4 (75381) Diagnoses Movement disorder G25.9 Muscle cramps R25.2 Tremor R25.1 Gait difficulty R26.9 Memory difficulties R41.3 Parkinson's disease with dyskinesia without fluctuating manifestations G20.B1 Fluctuating manifestations: without fluctuating manifestations Frequent falls R29.6 Hallucination, visual R44.1
--- OUTSIDE RECORDS SUMMARY | 2024-08-30 11:26 | XMS_ITS | Encounter Summary ---
Author Organization [facility] Address [address] [place] [address] Care Team Providers Care Want Ad Clerk Name Role Phone Emma Lanza MD Primary Care Provider Unava ilable René Olmos MD Unavailable [phone] Ronny Tran NP Unavailable [phone] Gauri Foreman MD Primary Care Provider Uma vailable Emma Lanza MD Primary Care Provider Unava ilable Encounter Details Date Type Department Care Team Description 03/01/2019 Loan Originator Report Medical Records [address] [place] [id number] Albino Gomez MD Social History Tobacco Use Types Packs/Day Years Used Date Smoking Tobacco: Never Smokeless Tobacco: Never Alcohol Use Standard Drinks/Week Comments No 0 (1 standard drink = 0.6 oz pur e alcohol) Sex Assigned at Date Recorded Not on file Job Start Date Occupation Industry Not on file Not on file Not on file documented as of this encounter Plan of Treatment Not on file documented as of this encounter Visit Diagnoses Not on filedocumented in this encounter Care Teams Want Ad Clerk Relationship Specialty Start Date End Date Emma Lanza MD PCP - General Internal Medicine 02/25/19 07/15/21 Gauri Foreman MD [address] [place] [address] [place] [address] PCP - General Internal Medicine 07/16/21 10/10/21 Emma Lanza MD [address] [place] [address] [place] [id number] PCP - General Internal Medicine 10/11/21 René Olmos MD [address] [place] [address] [place] [id number] Orchestra Teacher Cardiovascular Disease 04/24/20 Ronny Tran NP [address] [place] [address] [place] [phone] Specialist Cardiology 12/21/20 documented as of this encounter
--- OUTSIDE RECORDS SUMMARY | 2024-08-30 11:26 | XMS_ITS | Clinical Summary ---
Author Organization [facility] Address [address] [place] [address] Care Team Providers Care Ecological Modeler Name Role Phone Unavailable Primary Care Provider [...] Description 06/20/2024 10:20 AM EDT Office Visit [id number] [place] [address] Luz Marina Dash DDS 06/01/2024 9:40 AM EDT Office Visit [address] [phone] Luz Marina Dash DDS from Last 3 Months Social History Tobacco [...] Care Team (Late st Contact Info) Description 10/05/2024 1:00 PM EDT Office Visit [facility] [address] [place] [address] Otf Lynch, DDS [address] [place] [address] Health Maintenance Due Date Last Done Comments Hepatitis C Screening 1945 Imm-DTaP/Tdap/Td (1 - Tdap) 1965 Imm-Zoster, Recombinant (1 of 2) 01/10/1996 Bone Density Screening 2011 Falls Prevention 2011 Imm-RSV (adult) (1 - 1-dose 75+ series) 2021 [id number] ( season) 2023 12/24/2020, 03/20/2020, 02/28/2020 Alcohol and Drug Screen 02/17/2024 Depression Annual Screen 02/17/2024 Imm-Influenza (#1) 2024 12/07/2023, 1 , 12/17/2021, Additional history exists Tobacco Screening 12/01/2024 12/02/2023 Hypertension Screening (#1) 05/25/2025 Dental BW 05/27/2025 05/25/2024, 08/12/2023 Dental Examination 05/27/2025 05/25/2024, 08/12/2023 Dental Perio Charting 05/27/2025 05/25/2024 Dental Prophy 05/27/2025 05/25/2024, 08/12/2023 Dental FMX/Pano 08/13/2028 08/12/2023 Imm-Pneumococcal 50+ Completed 10/27/2017, 07/17/2015, 11/05/2014, Additional history exists Procedures Procedure Name Priority Date/Time Associated Diagnosis Comments INTRAORAL - PERIAPICAL FIRST RADIOGRAPHIC IMAGE Routine 06/20/2024 10:20 AM EDT Encounter for dental examination LIMITED ORAL EVALUATION - PROBLEM FOCUSED Routine 06/20/2024 10:20 AM EDT Encounter for dental examination LIMITED ORAL EVALUATION - PROBLEM FOCUSED Routine 06/01/2024 9:40 AM EDT Oral thrush COMP PERIODONTAL EVALUATION - NEW/EST PATIENT Routine 05/25/2024 1:40 PM EDT Caries Encounter for dental examination BITEWINGS - FOUR RADIOGRAPHIC IMAGES Routine 05/25/2024 1:40 PM EDT Caries Encounter for dental examination PROPHYLAXIS - ADULT Routine 05/25/2024 1 :40 PM EDT Caries Encounter for dental examination PERIODIC ORAL EVALUATION ESTABLISHED PATIENT Routine 05/25/2024 1:40 PM EDT Caries Encounter for dental examination INTRAORAL - COMP SERIES OF RADIOGRAPHIC IMAGES Routine 08/12/2023 1:40 PM EDT Caries Defective dental mormon Dental caries on smooth surface penetrating into pulp Caries of enamel (incipient) Encounter for dental examination and cleaning with abnormal findings from Last 3 Months or Most Recently Relevant to Health Maintenance Insurance [employer] [place] DENTAL
--- OUTSIDE RECORDS SUMMARY | 2024-08-30 11:26 | XMS_ITS ---
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 Past Plans ONCOLOGY INFUSION THERAPY Plan Name Start Date Discontinue Date Treatment Medications Discontinue Reason Plan Provider [facility] DENOSUMAB 60MG (PROLIA) 04/11/2022 11/02/2023 denosumab (PROLIA) Therapy Complete Lauri Lovett MD Radiation Treatments * No radiation treatments are documented for this patient in [facility]. Treatments may have been administered in another system.
--- OUTSIDE RECORDS SUMMARY | 2024-08-30 11:26 | XMS_ITS | Data Portability ---
Author Organization [facility], [facility] Address [address] [place] [address] Care Team Providers Care Filtration Plant Mechanic Name Role Phone KYLER GALVEZ Pantograph Machine Set Up Operator MYESHA MAY It Technical Architect ANNETTE MURGUIA Vascular Surgeon ELODIA BORREGO Primary Care Provider [phone] Assessment Encounter Date Assessment Date Assessment LastModified by Organization Details LastModified Time 04/29/2024 04/29/2024 CHIEF COMPLAINT: Follow-up bilateral foot HISTORY OF PRESENT ILLNESS: Sada is a 79-year-old woman who is well-known to me as she is status post bilateral forefoot reconstructions. She underwent previous left forefoot reconstruction including hallux MTP arthrodesis and 2 through 5 hammertoe corrections in April 2021, 3 years ago. I last saw her in June 2022. She has generally done well following surgery. She has developed some impingement between her second and great toes. She has tried toe spacers. She also has some flexible clawing of her right toes. Her left foot is more bothersome. Here today to discuss potential surgery. She denies any ulceration or infection. She denies any fevers, chills or paresthesias. She has been wearing orthopedic shoes. Unfortunately, her last week. She walks with a walker. She is status post right TTC arthrodesis by Dr. Sánchez. Past family, medical, social history and review of systems has been reviewed and is located in the patient s chart. No interval change. PHYSICAL EXAM: General: healthy appearing, in no acute distress Psych: alert and oriented x3, normal mood Skin: intact without ulceration or lesion, normal turgor Lungs: respirations unlabored Cardiac: heart rate regular, normal peripheral pulses Musculoskeletal: With shoes removed, her incisions are well-healed. Her second toe impinges against the great toe when she stands. There is mild residual forefoot swelling. There is valgus deformity about her left hallux IP joint with flexion and flexion about her left second DIP joint. She has flexion of her right hallux IP and lesser DIP joints. There is no ulceration. Her other toes are well aligned. There is no gross motion about her hallux MTP joint and hardware is not prominent or tender. She is distally neurovascularly intact. X-RAYS: Three standing views of her bilateral feet were ordered, obtained and reviewed by me today at [facility], demonstrating healed hallux MTP arthrodesis and healed second metatarsal osteotomy and lesser PIP arthrodeses. There is flexion about the left second DIP joint and valgus/flexion deformity with arthritic change about the hallux IP joint. IMPRESSION: 3 years postop, left forefoot deformities as described PLAN: I discussed these findings with Sada. She has failed conservative measures. Her left foot is a bigger issue. We will plan to proceed over the summer with surgery consisting of left hallux and antalgic arthrodesis, hardware removal and second DIP arthrodesis. She will be able to weight-bear in a postop shoe following surgery. All questions were answered. She understands and agrees with this plan. She will require overnight admission to the hospital as she lives alone. Risks include, but are not limited to, wound healing problems, deep infection, nerve/vessel injury, nonunion, malunion, symptomatic hardware, persistent pain, need for further surgery. The expected postoperative course was outlined in detail. The patient understands the nature and magnitude of this surgery and wishes to proceed. All questions were answered. [email or web address] Not available 04/29/2024 09:50:32 07/04/2024 07/04/2024 I am seeing the patient today under the supervision of Dr. Gomez who was available but who did not see the patient. HPI: 79-year-old female presents today following injury to her right foot. She had a prior history of foot and ankle surgery with previous fusion and reconstruction. She fell recently and had pain with weightbearing activities. Her right foot. X-rays are taken. Patient placed in a postop shoe and referred for further evaluation and treatment. Past family, medical, social history and review of systems has been reviewed, updated and is located in the patient s chart. Examination: the patient is alert and cooperative in no acute distress. Afebrile, vital signs stable. There is active ROM of the hips and knees, calves are soft and nontender period is somewhat limited range of motion of the right ankle. The right foot and ankle has chronic edema and swelling. There is tenderness in the region of the fourth metatarsal base. There is no pain with squeezing the metatarsal heads. There is no ecchymosis. Circulation, sensation intact distally. X-rays done previously at an outside facility reviewed. 3 views of the foot demonstrate nondisplaced oblique fracture of the base of the shaft of the right fourth metatarsal Impression: Nondisplaced . Fracture, right fourth metatarsal Plan:. Continue with postoperative shoe, weightbearing as tolerated with the aid of a walker. Recheck 3 weeks with x-rays [email or web address] Not available 07/04/2024 09:41:06 07/27/2024 07/27/2024 79-year-old fema prasahnt returns today in follow-up status post right fourth metatarsal fracture sustained on the second week of June 2024 with overall acceptable alignment of her right 3rd, 4th and 5th metatarsal fractures. She will continue with her orthopedic sandal, follow-up in 2 to 3 weeks for recheck on x-rays and possible weaning from her sandal into her regular shoe wear. [email or web address] Not available 07/27/2024 13:34:53 Plan of Treatment Reminders Order Date Submit Date Provider Last Modified By Organization Details Last Modified Time Details Appointments RECHECK 15 2024 11:00A M Gertrude Baldwin PA-C Not available Not available Not available Lab None recorded. Referral None recorded. Procedures None recorded. Surgeries orthopaed ic surgery (SURG) 2024 025 [email or web address] [facility] [place] [address] [place], [address], 08/22/2024 10:22:17 Imaging XR, foot, 3 or more view - room 104 recheck 3v R foot wb 2024 [email or web address] [facility], [address], [address], [place], [address], 07/27/2024 13:46:56 XR, foot, 3 or more view - 107--NEW 3V FOOT WB 2024 025 [email or web address] [facility] [address] [facility] [address], [facility] [address], [place], [address], 05/12/2024 11:54:18 Medication Orders None recorded. Patient TargetsNo targets recorded. Patient InstructionsNo instructions recorded. Reason for Referral None Reported. Results Created Date Observation Date Name Description Value Unit Range Abnormal Flag Note LastModifiedBy Organization Detail LastModifiedTime 04/30/1904/29/2024 XR, foot, 3 or more view http:/ [email or web address] ?Encry pted=s hAaTro YD8dLq bEUv6g %2BXZw aYqtaq 0bqfl% 2Fg9IQ a4ajBk vP9nXo QUaueC m3YtLR FvZlgJ JJ8mAn HZtai3 1e0390 AC0KqY n%2BEU qOlKiQ trMwF INTERFACE [facility] [address] [facility] [address], [place], [address], 04/29/2024 09:34:15 04/30/19 25 04/29/2024 XR, foot, 3 or more view [email or web address] ?Encry pted=s hAaTro YD8dLq bEUv6g %2BXZw aYqtaq 0bqfl% 2Fg9IQ a4ajBk vP9nXo QUaueC m3YtLR FvZlgJ JJ8mAn HZtai3 2x5952 AC0KqY n%2BEU qOlKiQ trMwF INTERFACE [facility] [address], [place], [address], 04/29/2024 09:34:17 07/28/19 25 07/27/2024 XR, foot, 3 or more view [email or web address] ?Encry pted=s hAaTro YD8dLq bEUv6g %2BXZw aYqtaq 0bqfl% 2Fg9IQ a4ajBk vP9nXo QUaueC m3YtLR FvZlgJ JJ8mAn HZtai3 4b5839 AC0Kla H%2BMW aWgKiQ trMwF INTERFACE [facility] [address], [address], 07/27/2024 13:12:05 07/28/19 25 07/27/2024 XR, foot, 3 or more view [email or web address] ?Encry pted=s hAaTro YD8dLq bEUv6g %2BXZw aYqtaq 0bqfl% 2Fg9IQ a4ajBk vP9nXo QUaueC m3YtLR FvZlgJ JJ8mAn HZtai3 4w3404 AC0Kla H%2BMW aWgKiQ trMwF INTERFACE [facility] [address], [address], 07/27/2024 13:12:07 Result Notes Documentation Provider Name and Address Organization Details Recorded Time Xr, Foot, 3 Or More View : [email or web address] Encrypted=muZuMecPF4nMufO Uv6g%5UKRjvUgdmc2onbq%2Fg 5SNv9azLaeS0nPiVYitoOz1Ai SMZgAdaSFO9rEhSNslg98y494 1OT7ZfVb%2BEUqOlKiQtrMwF Not Available [facility] 04/29/2024 09:3 4:15 Xr, Foot, 3 Or More View : [email or web address] Encrypted=gjMqAyxLN7eBmgT Uv6g%5IJYosHclem8xgjx%2Fg 2GBt6huDxkU7cLnHKkwsHo9Zt YTCwPtfCST3hScJTtjk17r107 2WM8OzEy%2BEUqOlKiQtrMwF Not Available [facility] 04/29/2024 09:3 4:17 Xr, Foot, 3 Or More View : [email or web address] Encrypted=rbHuLwpCO2pRfhH Uv6g%9EYAvcYuubh6dtzm%2Fg 7UMb6sbKzaG1uYvAAjncQj0De KMKyNtsBTP9jTiCPpax84v097 0WB2VnsC%2BMWaWgKiQtrMwF Not Available [facility] 07/27/2024 13:1 2:06 Xr, Foot, 3 Or More View : [email or web address] Encrypted=skYyMhpOC5tDrmI Uv6g%4UINjuCwrny1wzms%2Fg 5UFo4kgJsnO8oQuQExziPv9Ed DOHjEnlZFI8fErXHypy49a448 1ML8VpkF%2BMWaWgKiQtrMwF Not Available [facility] 07/27/2024 13:1 2:08 Problems Name Problem SNOMED Code Status Onset Date Resolution Date Notes Provider Name and Address Organization Details Recorded Time Closed fracture of fourth metatarsa l bone of right foot [id number] 69271 Active 2024 Steven Robert PA-C [address] [place] [address] [address], [facility] [place], [address] , [facility] 5 11:28:37 Pain associate d with internal prostheti c device 683481355 Active 2019 Problem Code: T84.84XA ; Problem Code Type: ICD-10; Status: 'A'; Not Available [facility] 4 11:43:39 Idiopathi c osteoarth ritis 097434084 Active 2019 Problem Code: M19.071; Problem Code Type: ICD-10; Status: 'A'; Not Available [facility] 11:43:39 Acquired deformity of right foot 566741810 Active 2019 Problem Code: M21.6X1; Problem Code Type: ICD-10; Status: 'A'; Not Available [facility] 11:43:40 Traumatic arthropat hy of the ankle and/or foot 126847202 Active 2019 Problem Code: M12.571; Problem Code Type: ICD-10; Status: 'A'; Not Available [facility] 11:43:40 Problem Notes None recorded. Medical Equipment None Reported. Allergies Allergen ID Allergen Name Allergen Category Reaction Reaction Severity Criticality Documentation Date Start Date Code Code System Note Provider Name and Address Organization Details Recorded Time 47391 Substance with sulfonami de structure and antibacte rial mechanism of action (substanc e) medicatio n Not available Not available Not available 04/20/20232009 03604 8003 SNOMED Aller gyRea ction : 'Skin React ion'; Not Available [facility] 13:40:30 63595 codeine medicatio n Not available Not available Not available 04/20/20232009 2670 RxNorm Aller gyRea ction : 'Skin React ion'; Not Available [facility] 13:40:30 62297 azithromy grace medicatio n Not available Not available Not available 04/20/20232018 25962 RxNorm Not Available [facility] 13:40:30 85564 Medicinal product acting as adhesive (product) environme nt,medica tion Not available Not available Not available 04/20/20232018 93454 2009 SNOMED Not Available [facility] 13:40:30 43140 vancomyci n hydrochlo ride medicatio n Not available Not available Not available 04/20/20232016 05606 RxNorm Not Available [facility] 13:40:30 24835 Iodinated contrast media (substanc e) medicatio n Not available Not available Not available 04/20/20232022 48438 2003 SNOMED Aller gyNam e: 'cont rast dye'; Not Available [facility] 13:40:31 81752 Non-stero idal anti-infl ammatory agent (product) medicatio n Not available Not available Not available 04/20/20232018 29365 005 SNOMED Not Available [facility] 13:40:31 55827 Product containin g penicilli n (product) medicatio n Not available Not available Not available 04/20/20232009 47186 8001 SNOMED Not Available [facility] 13:40:31 Medications Name Sig Start Date Stop Date Status Note LastModified by Organization Details LastModified Time magnesium 200 mg tablets 200mg TAKE 1 TAB BY MOUTH DAILY active Not Available Not Available No t Available vitamin d 50 mcg (2000 ut) tabs active Not Available Not Available Not Available acetic acid 2 % ear solution PUT 5 DROPS IN BOTH EARS THREE TIMES A DAY X7 DAYS active Not Available Not Available No t Available nystatin 100,000 unit/mL oral suspension USE 5ML ORAL RINSE 4 TIMES A DAY FOR 14 DAYS. DO NOT EAT DRINK OR RINSE OUT FOR 30 MIN AFTER USE active Not Available Not Available No t Available torsemide 20 mg tablet TAKE 2 TABLETS (40MG) BY MOUTH 1 TIME EACH DAY. active Not Available Not Available No t Available cyanocobala min (vit B-12) 100 mcg tablet TAKE 1 TABLET BY MOUTH EVERY DAY active Not Available Not Available No t Available clindamycin HCl 300 mg capsule TAKE 2 CAPSULES BY MOUTH 30 MINUTES PRIOR TO DENTAL APPOINTME NT. active Not Available Not Available No t Available carbidopa ER 25 mg-levodopa 100 mg tablet,exte nded release TAKE 2 TABLETS BY MOUTH 30 MIN. BEFORE BREAKFAST , AND 1 TABLET 30 MIN. BEFORE LUNCH AND DINNER. active Not Available Not Available No t Available cetirizine 10 mg tablet TAKE ONE TABLET AT LUNCH TIME FOR ITCH. active Not Available Not Available No t Available fosfomycin tromethamin e 3 gram oral packet TAKE 1 GRANULE BY MOUTH ONCE active Not Available Not Available No t Available miconazole nitrate 2 % topical cream APPLY TO AFFECTED AREA 3 TIMES A DAY active Not Available Not Available No t Available ofloxacin 0.3 % eye drops INSTILL 1 DROP INTO RIGHT EYE 4 TIMES A DAY active Not Available Not Available No t Available nystatin 100,000 unit/gram topical ointment 1 APPLICATI ON TOPICALLY 2 TIMES A DAY X 10 DAYS active Not Available Not Available No t Available Pedro-Gest Antacid 200 mg (as calcium carbonate 500 mg) chewable tablet CHEW 1 TABLET BY MOUTH TWICE A DAY active Not Available Not Available No t Available sertraline 100 mg tablet TAKE 2 TABLETS BY MOUTH EVERY DAY active Not Available Not Available No t Available pimecrolimu s 1 % topical cream APPLY TO AFFECTED AREA AT LEAST ONCE DAILY. INCREASE TO TWICE DAILY IF SYMPTOMS WORSEN. active Not Available Not Available No t Available clindamycin HCl 150 mg capsule TAKE 1 CAPSULE BY MOUTH THREE TIMES A DAY active Not Available Not Available No t Available clopidogrel 75 mg tablet TAKE 1 TABLET BY MOUTH EVERY DAY active Not Available Not Available No t Available allopurinol 100 mg tablet TAKE 2 TABLETS BY MOUTH 1 TIME EACH DAY. active Not Available Not Available No t Available ciprofloxac in 500 mg tablet TAKE ONE TABLET BY MOUTH TWICE A DAY X 5 DAYS active Not Available Not Available No t Available aspirin 81 mg tablet,angeles yed release TAKE 1 TABLET BY MOUTH EVERY DAY active Not Available Not Available No t Available tramadol 50 mg tablet TAKE 1 TABLET BY MOUTH EVERY 12 HOURS, NEEDED FOR PAIN active Not Available Not Available No t Available acetaminoph en 500 mg tablet TAKE 2 TABLETS (1,000 MG TOTAL) BY MOUTH EVERY 8 HOURS FOR 10 DAYS active Not Available Not Available No t Available ketorolac 0.5 % eye drops INSTILL ONE DROP INTO RIGHT EYE FOUR TIMES A DAY active Not Available Not Available No t Available lorazepam 0.5 mg tablet TAKE 1 TABLET BY MOUTH EVERYDAY AT BEDTIME active Not Available Not Available No t Available doxycycline monohydrate 100 mg capsule TAKE 1 CAPSULE BY MOUTH TWICE A DAY FOR 10 DAYS active Not Available Not Available No t Available pantoprazol e 40 mg tablet,angeles yed release TAKE 1 TABLET BY MOUTH TWICE A DAY active Not Available Not Available No t Available tacrolimus 0.1 % topical ointment APPLY TO AFFECTED AREA EVERY DAY active Not Available Not Available No t Available pseudoephed rine-guaife nesin ER 80-700 mg tablet,exte nded release DO NOT DRIVE WHILE ON THIS MEDICATIO N 2011 active Statu s: 'Curr ent'; Not Available Not Available Not Available nystatin 100,000 unit/gram topical cream APPLY TO AFFECTED AREA TWICE A DAY active Not Available Not Available No t Available oxycodone 5 mg capsule TKE 1 CAPSULE BY MOUTH 3 TIMES A DAY FOR 5 DAYS NEEDED FOR PAIN active Not Available Not Available No t Available metoprolol tartrate 50 mg tablet TAKE 1 TABLET BY MOUTH TWICE A DAY active Not Available Not Available No t Available triamcinolo ne acetonide 0.025 % topical ointment APPLY TWICE A DAY FOR 4 TO 5 DAYS TOPICALLY active Not Available Not Available No t Available docusate sodium 100 mg capsule TAKE 1 CAPSULE BY MOUTH TWICE A DAY active Not Available Not Available No t Available bumetanide 1 mg tablet TAKE 2 TABLETS 1 TIME EACH DAY IN AM active Not Available Not Available No t Available hydroxyzine HCl 25 mg tablet TAKE 1 TABLET BY MOUTH AT NIGHT NEEDED FOR ANXIETY active Not Available Not Available No t Available carbidopa 25 mg-levodopa 100 mg tablet Select to view Extended SIG active Not Available Not Available No t Available hydroxyzine HCl 10 mg tablet TAKE 1 TABLET BY MOUTH DAILY AT BEDTIME NEEDED FOR ITCHING active Not Available Not Available No t Available fluticasone propionate 50 mcg/actuati on nasal spray,suspe nsion USE 1 SPRAY IN EACH NOSTRIL TWICE A DAY active Not Available Not Available No t Available clotrimazol e 1 % topical cream APPLY TO AFFECTED AREA TWICE A DAY active Not Available Not Available No t Available oxycodone 5 mg tablet TAKE 1 TABLET (5 MG TOTAL) BY MOUTH EVERY 6 HOURS NEEDED FOR SEVERE PAIN MAX DAILY AMOUNT: 20 MG active Not Available Not Available No t Available aripiprazol e 5 mg tablet TAKE 1 TABLET BY MOUTH EVERY DAY active Not Available Not Available No t Available rosuvastati n 5 mg tablet TAKE 1 TABLET BY MOUTH EVERY DAY active Not Available Not Available No t Available nitrofurant oin monohydrate /macrocryst als 100 mg capsule TAKE 1 CAPSULE BY MOUTH TWICE A DAY FOR 7 DAYS active Not Available Not Available No t Available nystatin swish 4-6 ml and spit qid 2010 active Statu s: 'Curr ent'; Not Available Not Available Not Available aripiprazol e ARIPipraz ole 2MG Tablet 04/16 completed Statu s: 'Disc ontin ued'; Not Available Not Available Not Available aripiprazol e 2 mg tablet TAKE 1 TABLET BY MOUTH EVERY DAY active Not Available Not Available No t Available cholecalcif cassie (vitamin D3) 50 mcg (2,000 unit) tablet TAKE 1 TABLET BY MOUTH EVERY DAY active Not Available Not Available No t Available oxycodone HCl-oxycodo ne-ASA 1 Q 4-6HRS PRN PAINDO NOT DRIVE WHILE ON THIS MEDICATIO N 07/11 completed Statu s: 'Disc ontin ued'; Not Available Not Available Not Available Calmoseptin e 0.44 %-20.6 % topical ointment APPLY TO THE AFFECTED AREAS EVERY 4-6 HOURS NEEDED FOR CONTROL active Not Available Not Available No t Available D[place] 952 mg-1,347 mg topical powder in packet PLEASE SEE ATTACHED FOR DETAILED DIRECTION S active Not Available Not Available No t Available mirabegron ER 50 mg tablet,exte nded release 24 hr TAKE 1 TABLET BY MOUTH EVERY DAY active Not Available Not Available No t Available magnesium 200 mg (as magnesium oxide) tablet TAKE 1 TABLET BY MOUTH 1 TIME EACH DAY. active Not Available Not Available No t Available baclofen 5 mg tablet TAKE 1 TABLET BY MOUTH THREE TIMES A DAY active Not Available Not Available No t Available Vitals Date Recorded Body height Body mass index (BMI) Body weight Provider Name and Address Organization Details Last Updated DateTime 04/29/2024 157.48 cm 44.8 kg/m2 730597.13 g DANNIELLE Harris [facility] 04/29/2024 09:50:04 Date Recorded Body height Body mass index (BMI) Body weight Provider Name and Address Organization Details Last Updated DateTime 07/04/2024 157.48 cm 44.8 kg/m2 936171.13 g JERARDO RICHARDS [facility] 07/04/2024 08:59:49 Date Recorded Body height Body mass index (BMI) Body weight Provider Name and Address Organization Details Last Updated DateTime 07/27/2024 157.48 cm 44.8 kg/m2 353775.13 g Arabella llanes [facility] 07/27/2024 13:02:18 Social History None recorded. Functional Status None recorded. Mental Status None recorded. Family History Nothing Reported. Medical History Condition Response Breathing or lung disorders Y Arthritis Y Cancer Y Kidney/Bladder Problems Y Heart Trouble Y Hypertension Y Cholesterol Y Gynecological HistoryNo gynecological history recorded. Obstetrics History GPAL:G 0 P 0 0 0 0 Past Encounters Encounter ID Performer Location Encounter Start Date Encounter Closed Date Diagnosis/Indication Diagnosis SNOMED-CT Code Diagnosis ICD10 Code Diagnosis Note [id number] Albino Gomez MD [facility] [place] [address] [place] [address] 04/29/2024 09:15:33 05/12/2024 11:54:18 Pain in both feet [id number] 5748218 M79.671 M79.672 Pain in left foot 133574 8171 13113 M79.672 Follow-up status 0580276 05 Z47.89 Pain 20913265 T84.84X A Acquired h allux malleus 11707101 M20.42 Arthritis of left foot 6168788777 410779 M19.980 [id number] Graeme Solis PA-C [facility] [place] [address] [place] [address] 07/04/2024 08:53:44 07/12/2024 11:10:45 Closed fracture of fourth metatarsal bone of right foot 4713595493 9466211 S92.344A [id number] [facility] [place] [address] [place] [address] 07/27/2024 12:56:58 08/11/2024 09:36:00 Closed fracture of fourth metatarsal bone of right foot 7287930049 7482757 S92.344D Health Concerns Section Related Observation LastModified by Organization Detai ls LastModified Time None Recorded Concern Status LastModified by Organization Details LastModified Time None Recorded Advance Directives Directive None Recorded Payers Insurance Date Sequence Insurance Name Policy Number Policy Leal Covered Member ID Leal Member ID Guarantor Name 07/01/2024 1 [facility] - PREFERRED (MEDICARE SUPPLEMENT) SCOIND Sada Murcia [id number] Sada Murcia 08/15/2024 1 [facility] - MEDICARE PREFERRED (MEDICARE REPLACEMENT HMO) SCOIND Sada Murcia [id number] Sada Murcia Notes Date Note Type Note Provider Name and Address Organization Details Recorded Time 07/27/2024 text/html I am seeing this patient under the supervision of Dr. Naqvi who was available but who did not see the patient Chief Complaint: Follow-up evaluation for right fourth metatarsal fracture HPI: 79-year-old female returns today in follow-up status post right fourth metatarsal fracture sustained on the second week of June 2024. She has been initially evaluated and treated by another provider in the office. She has been utilizing a postoperative sandal. She reports about a 6 out of 10 intensity of pain. Steven Robert PA-C [address] [facility] [address], [place], [address], [facility] 07/27/2024 13:35:06 OBGyn Episode No OBEpisode recorded.
--- OUTSIDE RECORDS SUMMARY | 2024-08-30 11:27 | XMS_ITS | Clinical Summary ---
Author Organization [facility] Address [address] [address] [place] [address] Phone Care Team Providers Care Clean Up Person Name Role Phone Emma Lanza MD Primary [...] 05/25/2020 Sulfa Antibiotics Other (see comments) 05/26/19 21 Vancomycin Other (see comments) 05/25/2020 Medications fluticasone (FLONASE) 50 MCG/ACT nasal spray Administer 1 spray into each nostril if needed 1 Active rosuvastatin (CRESTOR) 5 MG tablet Take 1 tablet by mouth 1 (one) time each day Active Multiple Vitamins-Dock Boss als (Centrum Silver 50+Women) tablet Take 1 tablet by mouth 1 (one) time each day Active ARIPiprazole (ABILIFY) 5 MG tablet Take 5 mg by mouth 1 (one) time each day 1 Active acetaminophen (TYLENOL) 500 MG tablet acetaminophen 500 mg tablet TAKE 2 TABLETS BY MOUTH EVERY 8 HOURS NEEDED FOR PAIN 1 Active cetirizine (ZyrTEC) 10 MG tablet Take 10 mg by mouth 0 Active nystatin (MYCOSTATIN) ointment nystatin 100,000 unit/gram topical ointment APPLY TO AFFECTED AREA 3 TIMES A DAY Active aspirin (ST CHRISTOPHER) 81 MG EC tablet Take 81 mg by mouth 1 (one) time each day Active metoprolol tartrate 25 MG tablet Take 50 mg by mouth in the morning and 50 mg in the evening. 2 Active pantoprazole (PROTONIX) 40 MG EC tablet Take 40 mg by mouth 1 (one) time each day 2 Active sertraline (ZOLOFT) 100 MG tablet Take 100 mg by mouth 1 (one) time each day 3 Active clopidogrel (PLAVIX) 75 MG tablet Take 75 mg by mouth 1 (one) time each day 3 Active Calcium Carbonate (CALCIUM 500 PO) Take 500 mg by mouth 1 (one) time each day Active cholecalcifero l (VITAMIN D-3) 10 MCG (400 UNIT) tablet Take 400 Units by mouth 1 (one) time each day Active traMADol (Ultram) 50 MG tablet Take 1 tablet (50 mg total) by mouth every 12 (twelve) hours if needed for moderate pain for up to 10 doses 10 tablet 4 Active carbidopa-levo dopa (SINEMET) 25-100 MG per tablet Take 1 tablet by mouth in the morning and 1 tablet in the evening and 1 tablet before bedtime. Active cyanocobalamin (VITAMIN B-12) 100 MCG tablet Take 100 mcg by mouth 1 (one) time each day 4 Active docusate sodium (COLACE) 50 MG capsule Take 100 mg by mouth in the morning and 100 mg in the evening. 2 tabs in the morning and 1 tab in the afternoon. Active Magnesium Oxide -Mg Supplement 200 MG tablet Take 1 tablet by mouth 1 (one) time each day 90 tablet 3 4 Active allopurinol (ZYLOPRIM) 100 MG tablet Take 2 tablets (200 mg total) by mouth 1 (one) time each day 180 tablet 3 4 11/04/19 25 Active torsemide (DEMADEX) 20 MG tablet TAKE 2 TABLETS (40MG) BY MOUTH 1 TIME EACH DAY. 180 tablet 3 5 Active Active Problems Problem Noted Date Diagnosed Date Iron deficiency anemia, not otherwise specified 08/09/2024 Hyperkalemia 08/09/2024 Mitral valve regurgitation 12/16/2021 H/O: ileostomy 03/26/2021 [...] I had a conversation with the patient's telecommunications administrator (Dr. Fernandez). During the conversation, we discussed [...] of nonsustained ventricular tachycardia during hospitalization at [facility] in September 2019. 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 [address] [facility] [address] [place] [phone] Jd Fernandez MD 07/04/2024 Refill [facility] [address] [facility] [address] [place] [id number] Jd Fernandez MD 06/27/2024 Orders Only [facility] [place] [id number] [facility] [address] [place] [phone] Jd Fernandez MD Other acute kidney failure (HCC); Stage 3b chronic kidney disease (HCC); Ulcerative colitis with complication, not otherwise specified (HCC); Wide QRS ventricular tachycardia (HCC); Vitamin D deficiency, not otherwise specified; Lymphedema; Localized edema; Hypomagnesemia; Hypertensive nephrosclerosis; Hypertension; Hypercalcemia from Last 3 Months Immunizations Immunization Administration [...] Reading Time Taken Comments Blood Pressure 118/60 08/10/2024 9:16 AM EDT Pulse 64 08/10/2024 9:16 AM EDT Temperature - - Respiratory Rate - - Oxygen Saturation 97% 08/10/2024 9:16 AM EDT Inhaled Oxygen Concentration - - Weight 115 kg (254 lb) 08/10/2024 9:16 AM EDT Height 157.5 cm (5' 2 ) 07/01/2023 9:02 AM EDT Body Mass Index 46.46 07/01/2023 9:02 AM EDT Plan of Treatment Upcoming Encounters Date Type Department Care Team (Late st Contact Info) Description 11/16/2024 10:00 AM EDT [facility] [address] [phone] Jd Fernandez MD [address] [phone] Health Maintenance Due Date Last Done Comments Influenza Vaccine (#1) 2024 0, 11/16/2018, 11/11/2018, Additional history exists Pneumococcal Vaccine: 50+ Years Completed 10/27/2017, 10/27/2017, 07/17/2015, Additional history exists Pneumococcal Vaccine: Peds (0 to 5 Years) and At-Risk Patients (6 to 49 Years) Discontinued 10/27/2017, 10/27/2017, 07/17/2015, Additional history exists Hepatitis B Vaccine Aged Out No longe r eligible based on patient's age to complete this topic Procedures Procedure Name Priority Date/Time Associated Diagnosis Comments B12/FOLATE Routine 08/04/2024 11:01 AM EDT Other acute kidney failure (HCC) Stage 3b chronic kidney disease (HCC) Ulcerative colitis with complication, not otherwise specified (HCC) Wide QRS ventricular tachycardia (HCC) Vitamin D deficiency, not otherwise specified Lymphedema Localized edema Hypomagnesemia Hypertensive nephrosclerosis Hypertension Hypercalcemia FERRITIN Routine 08/04/2024 11:01 AM EDT Other acute kidney failure (HCC) Stage 3b chronic kidney disease (HCC) Ulcerative colitis with complication, not otherwise specified (HCC) Wide QRS ventricular tachycardia (HCC) Vitamin D deficiency, not otherwise specified Lymphedema Localized edema Hypomagnesemia Hypertensive nephrosclerosis Hypertension Hypercalcemia IRON PANEL (FE, TIBC, TSAT) Routine 08/04/2024 11:01 AM EDT Other acute kidney failure (HCC) Stage 3b chronic kidney disease (HCC) Ulcerative colitis with complication, not otherwise specified (HCC) Wide QRS ventricular tachycardia (HCC) Vitamin D deficiency, not otherwise specified Lymphedema Localized edema Hypomagnesemia Hypertensive nephrosclerosis Hypertension Hypercalcemia PROTEIN / CREATININE RATIO, URINE Routine 08/04/2024 11:01 AM EDT Other acute kidney failure (HCC) Stage 3b chronic kidney disease (HCC) Ulcerative colitis with complication, not otherwise specified (HCC) Wide QRS ventricular tachycardia (HCC) Vitamin D deficiency, not otherwise specified Lymphedema Localized edema Hypomagnesemia Hypertensive nephrosclerosis Hypertension Hypercalcemia CBC AND DIFFERENTIAL Routine 08/04/2024 11:01 AM EDT Other acute kidney failure (HCC) Stage 3b chronic kidney disease (HCC) Ulcerative colitis with complication, not otherwise specified (HCC) Wide QRS ventricular tachycardia (HCC) Vitamin D deficiency, not otherwise specified Lymphedema Localized edema Hypomagnesemia Hypertensive nephrosclerosis Hypertension Hypercalcemia VITAMIN D 25 HYDROXY Routine 08/04/2024 11:01 AM EDT Other acute kidney failure (HCC) Stage 3b chronic kidney disease (HCC) Ulcerative colitis with complication, not otherwise specified (HCC) Wide QRS ventricular tachycardia (HCC) Vitamin D deficiency, not otherwise specified Lymphedema Localized edema Hypomagnesemia Hypertensive nephrosclerosis Hypertension Hypercalcemia PTH, INTACT Routine 08/04/2024 11:01 AM EDT Other acute kidney failure (HCC) Stage 3b chronic kidney disease (HCC) Ulcerative colitis with complication, not otherwise specified (HCC) Wide QRS ventricular tachycardia (HCC) Vitamin D deficiency, not otherwise specified Lymphedema Localized edema Hypomagnesemia Hypertensive nephrosclerosis Hypertension Hypercalcemia PHOSPHATE ( PHOSPHORUS) Routine 08/04/2024 11:01 AM EDT Other acute kidney failure (HCC) Stage 3b chronic kidney disease (HCC) Ulcerative colitis with complication, not otherwise specified (HCC) Wide QRS ventricular tachycardia (HCC) Vitamin D deficiency, not otherwise specified Lymphedema Localized edema Hypomagnesemia Hypertensive nephrosclerosis Hypertension Hypercalcemia MAGNESIUM Routine 08/04/2024 11:01 AM EDT Other acute kidney failure (HCC) Stage 3b chronic kidney disease (HCC) Ulcerative colitis with complication, not otherwise specified (HCC) Wide QRS ventricular tachycardia (HCC) Vitamin D deficiency, not otherwise specified Lymphedema Localized edema Hypomagnesemia Hypertensive nephrosclerosis Hypertension Hypercalcemia URIC ACID Routine 08/04/2024 11:01 AM EDT Other acute kidney failure (HCC) Stage 3b chronic kidney disease (HCC) Ulcerative colitis with complication, not otherwise specified (HCC) Wide QRS ventricular tachycardia (HCC) Vitamin D deficiency, not otherwise specified Lymphedema Localized edema Hypomagnesemia Hypertensive nephrosclerosis Hypertension Hypercalcemia COMPREHENSIVE METABOLIC PANEL Routine 08/04/2024 11:01 AM EDT Other acute kidney failure (HCC) Stage 3b chronic kidney disease (HCC) Ulcerative colitis with complication, not otherwise specified (HCC) Wide QRS ventricular tachycardia (HCC) Vitamin D deficiency, not otherwise specified Lymphedema Localized edema Hypomagnesemia Hypertensive nephrosclerosis Hypertension Hypercalcemia from Last 3 Months Results * Vitamin B12/Folate (08/04/2024 11:01 AM EDT) Pathologist [facility] Vitamin B-12 452 232 - 1,245 pg/mL [facility] Folate >20.0 >3.0 ng/mL [facility] Comment: A serum folate concentration of less than 3.1 ng/mL is considered to represent clinical deficiency. 08/04/2024 11:0 1 AM EDT 08/04/2024 us Jd Fernandez MD LAB BLOOD ORDERABLES Final Re sult Performing Organization Address [facility] Co de Phone Number [facility] [address] [place] [address] * Iron Panel (Fe, TIBC, TSAT) (08/04/2024 11:01 AM EDT) TIBC 291 250 - 450 ug/dL [facility] UIBC 236 118 - 369 ug/dL [facility] Iron 55 27 - 139 ug/dL [facility] Iron Saturation (TSat) 19 15 - 55 % [facility] Blood specimen (specimen) Venous blood / Unknown 08/04/2024 11:01 AM EDT 08/04/2024 Jd Fernandez MD LAB BLOOD ORDERABLES Final Re sult Performing Organization Address [facility] Co de Phone Number [facility] [address] [place] [address] * (ABNORMAL) Protein, Total, Random Urine w/Creatinine (Protein/Creat Ratio) (08/04/2024 11:01 AM EDT) Creatinine, Ur 66.7 Not Estab. mg/dL [facility] Protein, Ur 21.3 Not Estab. mg/dL [facility] Urine Protein/Creati nine Ratio 319(H) 0 - 200 mg/g creat [facility] Urine specimen (specimen) Urine specimen obtained by clean catch procedure / Unknown 08/04/2024 11:01 AM EDT 08/04/2024 Jd Fernandez MD LAB URINE ORDERABLES Final Re sult Performing Organization Address City/[facility]/ZIP Co de Phone Number [facility] [place] [address] [place] [address] * Vitamin D 25 Hydroxy (08/04/2024 11:01 AM EDT) Vitamin D, 25-OH, Total 31.3 30.0 - 100.0 ng/mL [facility] Comment: Vitamin D deficiency has been defined by the [place] of [employer] and an Endocrine Society practice guideline as a level of serum 25-OH vitamin D less than 20 ng/mL (1,2). The Endocrine Society went on to further define vitamin D insufficiency as a level between 21 and 29 ng/mL (2). 1. IOM ([place] of [employer]). 2010. Dietary reference intakes for calcium and D. [place]: The National Academies Press. 2. Cm MF, Jaswant SEVERINO, Johanna MOLINA, et al. Evaluation, treatment, and prevention of vitamin D deficiency: an Endocrine Society clinical practice guideline. JCEM. 2010; 96(7):1911-30. Blood specimen (specimen) Venous blood / Unknown 08/04/2024 11:01 AM EDT 08/04/2024 Jd Fernandez MD LAB BLOOD ORDERABLES Final Re sult Performing Organization Address City/[facility]/ZIP Co de Phone Number [facility] [place] [address] [place] [address] * (ABNORMAL) CBC and Differential (08/04/2024 11:01 AM EDT) WBC 7.4 3.4 - 10.8 x10E3/uL [facility] RBC 2.92(L) 3.77 - 5.28 x10E6/uL [facility] Hemoglobin 9.3(L) 11.1 - 15.9 g/dL [facility] Hematocrit 29.1(L) 34.0 - 46.6 % [facility] MCV 100(H) 79 - 97 fL [facility] MCH 31.8 26.6 - 33.0 pg [facility] MCHC 32.0 31.5 - 35.7 g/dL [facility] RDW 14.8 11.7 - 15.4 % [facility] Platelets 204 150 - 450 x10E3/uL [facility] Neutrophils Relative 71 Not Estab. % [facility] Lymphocytes Relative 16 Not Estab. % [facility] Monocytes 7 Not Estab. % [facility] Eosinophils Relative 5 Not Estab. % [facility] Basophils Relative 1 Not Estab. % [facility] Neutrophils Absolute 5.2 1.4 - 7.0 x10E3/uL [facility] Lymphocytes Absolute 1.2 0.7 - 3.1 x10E3/uL [facility] Monocytes Absolute 0.6 0.1 - 0.9 x10E3/uL [facility] Eosinophils Absolute 0.4 0.0 - 0.4 x10E3/uL [facility] Basophils Absolute 0.1 0.0 - 0.2 x10E3/uL [facility] Immature Granulocytes 0 Not Estab. % [facility] Immature Grans (Absolute) 0.0 0.0 - 0.1 x10E3/uL [facility] Blood specimen (specimen) Venous blood / Unknown 08/04/2024 11:01 AM EDT 08/04/2024 us Jd Fernandez MD LAB BLOOD ORDERABLES Final Re sult Performing Organization Address [facility]/ZIP Co de Phone Number [facility] [address] [place] [address] * Uric Acid (08/04/2024 11:01 AM EDT) Uric Acid 5.0 3.1 - 7.9 mg/dL [facility] Comment:Therapeutic target f or gout patients: <6.0 Blood specimen (specimen) Venous blood / Unknown 08/04/2024 11:01 AM EDT 08/04/2024 us Jd Fernandez MD LAB BLOOD ORDERABLES Final Re sult Performing Organization Address [facility] Co de Phone Number [facility] [address] [place] [address] * Phosphorus (08/04/2024 11:01 AM EDT) Phosphorus 3.8 3.0 - 4.3 mg/dL [facility] Blood specimen (specimen) Venous blood / Unknown 08/04/2024 11:01 AM EDT 08/04/2024 us Jd Fernandez MD LAB BLOOD ORDERABLES Final Re sult Performing Organization Address City/[facility] Co de Phone Number [facility] [address] [place] [address] * PTH, Intact (08/04/2024 11:01 AM EDT) PTH 62 15 - 65 pg/mL [facility] Blood specimen (specimen) Venous blood / Unknown 08/04/2024 11:01 AM EDT 08/04/2024 us Jd Fernandez MD LAB BLOOD ORDERABLES Final Re sult Performing Organization Address [facility]/ZIP Co de Phone Number [facility] [address] [place] [address] * Magnesium (08/04/2024 11:01 AM EDT) Magnesium 2.0 1.6 - 2.3 mg/dL [facility] Blood specimen (specimen) Venous blood / Unknown 08/04/2024 11:01 AM EDT 08/04/2024 us Jd Fernandez MD LAB BLOOD ORDERABLES Final Re sult Performing Organization Address [facility] de Phone Number [facility] [place] [address] [place] [address] * Ferritin (08/04/2024 11:01 AM EDT) Ferritin 90 15 - 150 ng/mL [facility] Blood specimen (specimen) Venous blood / Unknown 08/04/2024 11:01 AM EDT 08/04/2024 us Jd Fernandez MD LAB BLOOD ORDERABLES Final Re sult Performing Organization Address [facility] Co de Phone Number [facility] [address] [place] [address] * (ABNORMAL) Comprehensive Metabolic Panel (08/04/2024 11:01 AM EDT) Glucose 91 70 - 99 mg/dL [facility] BUN 38(H) 8 - 27 mg/dL [facility] Creatinine 1.92(H) 0.57 - 1.00 mg/dL [facility] eGFR CKD-EPI CR 2020 26(L) >59 mL/min/1.7 3 [facility] BUN/Creatinine Ratio 20 12 - 28 [facility] Sodium 137 134 - 144 mmol/L [facility] Potassium 5.1 3.5 - 5.2 mmol/L [facility] Chloride 104 96 - 106 mmol/L [facility] Calcium 9.5 8.7 - 10.3 mg/dL [facility] Total Protein 6.5 6.0 - 8.5 g/dL [facility] Albumin 4.0 3.8 - 4.8 g/dL [facility] Globulin 2.5 1.5 - 4.5 g/dL [facility] Total Bilirubin 0.3 0.0 - 1.2 mg/dL [facility] Alkaline Phosphatase 184(H) 44 - 121 IU/L [facility] AST (SGOT) 14 0 - 40 IU/L [facility] ALT (SGPT) 5 0 - 32 IU/L [facility] Bicarbonate (CO2) 14(L) 20 - 29 mmol/L [facility] Comment:Verified by repeat analysis Blood specimen (specimen) Venous blood / Unknown 08/04/2024 11:01 AM EDT 08/04/2024 us Jd Fernandez MD LAB BLOOD ORDERABLES Final Re sult [facility] [address] [place] [phone] from Last 3 Months Insurance Medicaid [place] Care Teams Clean Up Person Relationship Specialty Start Date End Date Emma Lanza MD [address] [place] [phone] PCP - General 02/27/20
== END 2024-08-30 11:44 | disposition home or self-care (01) ==
PROVIDERS: PCP Internal Medicine; Visit Provider Nurse Practitioner Family
DX: G20.B1 Parkinson's disease with dyskinesia, without mention of fluctuations (principal); R41.3 Other amnesia; R29.6 Repeated falls; R44.1 Visual hallucinations; G25.9 Extrapyramidal and movement disorder, unspecified; R25.2 Cramp and spasm; R25.1 Tremor, unspecified; R26.9 Unspecified abnormalities of gait and mobility
CPT/HCPCS: 98013

== ENCOUNTER 2024-10-20 14:32 | Outpatient (AMB) | payer OTHER, SELFPAY ==
--- NOTE | 2024-10-20 14:29 | A.OFFVIS_ITS ---
Intake Visit Reasons: Legs giving out Intake Note: Patient presents as a telehealth today for a follow up per patient request. Sanitation Associate Required: No Accompanied by: Self / Same As Patient Allergies codeine Allergy (Severe, Verified 10/20/24 14:29) Confusion Penicillins Allergy (Unknown, Verified 10/20/24 14:29) swelling tongue Sulfa (Sulfonamide Antibiotics) Allergy (Unknown, Verified 10/20/24 14:29) Unknown gabapentin Adverse Reaction (Verified 10/20/24 14:29) Rash HPI Comments Details: 79-yr-old female presents for f/u telephone visit for falls in setting of movement d/o. Pt is unable to utilize [employer] technology. Patient reports that she has been having episodes where her legs feel like they just ?disappear? from under her, and then she just falls. Once she falls, she feels fine. However, she has to request EMT support to help her get up from the ground. She states this has been worse since she was discharged home from a 5-day hospit al stay for treatment of a UTI. She notes that while she was in the hospital, she was not able to walk due to receiving IV ABTs. She also reports that she had a 3-day hospital stay following a fall which she had bumped her head. She states she is feeling better in terms of the UTI s/s. Her hallucinations are about the same. She has been discharged home with home services, including PT. She is now using a w/c in her apartment, as she is fearful of walking with her walker. She states it was someone at her Ind living who suggested she use the w/c. She has just had her 1st PT eval, and has her 1st tx session tomorrow. She is worried that she will be confined to the w/c for the rest of ehr life and will need to move to a alf- states a home nurse told her this. 08/30/2024, previous HPI: Pt requested urgent telephone visit to discuss recent falls and hallucinations. She reports she was hospitalized 08/11/23 for treatment of fluid overload. Review of [facility] admission 08/10/2024 through 08/14/2024, showed the patient had seen her reducing system operator for preoperative evaluation for a orthopedic procedure, however patient was found to be in fluid overload having gain 30 lb in the previous 6 months- and patient was transferred to the hospital. During admission, patient was treated for acute on chronic diastolic CHF and hypokalemia, was attributed to patient having stopped her diuretics txs. Hypokalemia was repleted with potassium supplementation. Patient also had nonspecific abdominal pain, with 08/13/2024 abdominal ultrasound showing hepatomegaly with diffuse fatty infiltration, the abdominal pain had resolved upon discharge, and patient was advised to follow a low-fat carbohydrate restricted diet. Patient was discharged with home nursing and PT. On review of recent [facility] portal, patient had a ER evaluation on 08/09/2024 for eval of a fall. UA showed + bacteria and WBCs/RBCs- unclear if this was addressed during subsequent hospitalization. Patient states she can just walking and all of a sudden fall to the floor. Reports the falling was occurring before and after this recent hospitalization and the falls are not better/worse since d/c home. The falls are making it harder to walk w/ her walker. She has chronic LE lymphedema. Denies orthostatic lightheaded dizziness, or LOC. Per nephrology note- pt has a h/o [place] d/t urosepsis which required tx w/ midodrine- however pt does not recall this. She is seeing people in her house or sees a spot like it is moving. She is compliant w/ CD-LD ER 25-100mg- 2 tabs qam and then 1 tab bid. She does not notice any chnage in falls or hallucinations r/t her CD-LD doses. Previous HPI, 07/06/2024: Pt reports she broke her right foot 2 weeks ago at her dentist's office. States she was standing up after toileting, pulling up her pants, when all of a sudden she lost full control of her legs and they just gave out, she tried to prevent herself from falling by grabbing the grab bars but she could not hold on, and just fell. She required assist from the dental staff to get up. She went home via her transportation and then went to [facility]. She was given a walking shoe and advised to f/u with her ortho. Initially she was using her w/c more. She states ortho advised her to continue using the walking shoe and start walking w/ her walker again. Taking CD-LD IR 25-100mg 1.5 tabs po 3 x's per day since last visit (increased from 1 tab t.i.d.), which she feels helped some. ADL's: Ind but slower. She has a DISK RECORDIST twice a week, who helps w/ home care. Swallowing: Continues to have difficulty swallowing, states cannot eat for long before her throat closes up on her- she is still waiting to have a f/u MBS through GI, Sylvie DANIELS/Dr Duckworth. Voice: Hoarseness- ENT felt this was r/t h/o lung resection. Drooling: Denies Orthostatic lightheadedness: Sometimes, usually brief. Taking 4 20oz bottles of water per day. Constipation: Has an ostomy Urinary symptoms: urinary frequency- thinks it is a bit more, so she is prone to skipping her diuretic tx. Tremor: Tremor is a bit better. Dyskinesia: States her LLE will jump on its own, but had BLE involuntary leg movements at night. Stiffness: Denies stiffness. Legs can cramp/tighten when elevating them, resolves with putting her legs down. Gait changes: States her gait varies- some days better than others, still affected by her BLE edema- using a BLE compression device but she is not sure it helps. Maybe prone totrip on her own feet but not fall. She is f/b pulmonology/cardiology. Uses a walker. Seated walker was not helpful. Freezing: Denies Falls: Denies any other interval falls. Mood: Ok Hallucinations: Is now seeing things that are not there which is freaking me out - sees people, a horse- now during the night and day. Memory: Feels memory is not good- feels forgetful. She previously had neuropsych eval, which did show cognitive deficits that did not meet criteria for a major neurocognitive d/o, though possibility was raised that her presentation could be seen in Parkinsonian d/o's. Sleep: Sleeping is worse, sleeping 1-2 hours and then up for 1-2 hours. Overall states not sleeping > 2-3 hours. Denies daytime naps. Exercise: None. Still walking to the dining room, to the mailroom. Other: The other day, she had an isolated sensation of Right leg feeling like it was in a knot and then jsut let go (did not last long), while sitting w/ legs elevated in the evening. [facility] Medical History Vitamin D deficiency Vitamin B12 deficiency Recurrent major depression Pernicious anemia Peripheral nerve disease Mitral valvular regurgitation Lumbar spondylolysis Left bundle branch block HTN (hypertension) HLD (hyperlipidemia) H/O methicillin resistant Staphylococcus aureus Hearing loss Gout GERD (gastroesophageal reflux disease) Female stress incontinence Cyst of ovary COPD (chronic obstructive pulmonary disease) Chronic back pain Atherosclerosis of both carotid arteries Atherosclerosis of aorta Aortic valve disorder Anxiety Anemia of chronic disease Allergic rhinitis Surgical History History of ileostomy Hx of appendectomy H/O shoulder surgery H/O knee surgery Hx of cholecystectomy Family History Father History of heart attack Mother Cancer Brother Brain cancer Social History Alcohol intake: never Patient Tobacco Use Status: Never used Tobacco Physical Exam Const General: cooperative and no acute distress Resp Effort & Inspection: normal respiratory effort and able to speak in complete sentences Neuro Other: General: A&O x's 3 Voice: Soft, hoarse Psych: Pleasant affect. Telehealth Telehealth Telehealth Platform: Telephone Location of provider rendering services: practice address Location of patient: address on file Patient Identification confirmed using: Name, : Yes Telehealth method: voice only Patient verbally consented to treatment: Yes Patient verbally consented to billing insurance company: Yes Patient informed of any privacy concerns related to visit: Yes Minutes spent on Phone/Video with Pt.: 15 Assessment & Plan Assessment & Plan (1) Movement disorder: Code(s): G25.9 - Extrapyramidal and movement disorder, unspecified Category: Medical (2) Muscle cramps: Code(s): R25.2 - Cramp and spasm Category: Medical (3) Tremor: Code(s): R25.1 - Tremor, unspecified Category: Medical (4) Gait difficulty: Code(s): R26.9 - Unspecified abnormalities of gait and mobility Category: Medical (5) Memory difficulties: Code(s): R41.3 - Other amnesia Category: Medical (6) Parkinson's disease with dyskinesia: Code(s): G20.B1 - Parkinson's disease with dyskinesia, without mention of fluctuations Category: Medical Qualifiers: Fluctuating manifestations: without fluctuating manifestations Qualified Code(s): G20.B1 - Parkinson's disease with dyskinesia, without mention of fluctuations (7) Frequent falls: Code(s): R29.6 - Repeated falls Category: Medical (8) Hallucination, visual: Code(s): R44.1 - Visual hallucinations Category: Medical Plan * Reviewed Sep 2023 [facility] admission notes- * Patient encouraged to work w/ PT, and to do PT exercises on a daily basis as recomended by PT. * Continue Rytary 23.75-95mg 2 caps 3 x's per day- in hopes this helps tremor and bradykinesia w/o exacerbating hallucinations. * Previous trials: CD-LD IR- not tolerated- caused dyskinesias and hallucinations. * Follow-up with cardiology and nephrology as scheduled. * René Olmos-Galo- okay so he has your reducing system operator * Dr Thompson and Janice quality control auditor Coding Level of Care Code Tele Est Pt Level 4 (12943) Diagnoses Movement disorder G25.9 Muscle cramps R25.2 Tremor R25.1 Gait difficulty R26.9 Memory difficulties R41.3 Parkinson's disease with dyskinesia without fluctuating manifestations G20.B1 Fluctuating manifestations: without fluctuating manifestations Frequent falls R29.6 Hallucination, visual R44.1
--- OUTSIDE RECORDS SUMMARY | 2024-10-20 15:48 | XMS_ITS ---
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 Past Plans ONCOLOGY INFUSION THERAPY Plan Name Start Date Discontinue Date Treatment Medications Discontinue Reason Plan Provider [facility] DENOSUMAB 60MG (PROLIA) 04/11/2022 11/02/2023 denosumab (PROLIA) Therapy Complete Lauri Lovett MD Radiation Treatments * No radiation treatments are documented for this patient in [facility]. Treatments may have been administered in another system.
--- OUTSIDE RECORDS SUMMARY | 2024-10-20 15:48 | XMS_ITS | Clinical Summary ---
Author Organization [facility] Address [address] [place] [address] Care Team Providers Care Comb Capper Name Role Phone Emma Lanza MD Primary [...] 61 04/15/2023 11:31 AM EST Temperature 36.4 C (97.5 F) 04/15/2023 11:31 AM EST Respiratory Rate - - Oxygen [...] 1-dose 75+ series) 2021 COVID-19 Vaccine ( - 2024- season) 2024 12/24/2020, 03/20/2020, 02/28/2020 Influenza Vaccine (#1) 2024 , 11/16/2018, 11/11/2018, Additional history exists Pneumococcal Vaccine Completed 10/27/2017, 07/17/2015, 11/05/2014, Additional history exists Hepatitis B Vaccines Aged Out No long er eligible based on patient's age to complete this topic RSV Ped < 20 months Aged Out No longe r eligible based on patient's age to complete this topic Care Teams Comb Capper Relationship Specialty Start Date End Date Emma Lanza MD PCP - General Internal Medicine 03/03/19
--- OUTSIDE RECORDS SUMMARY | 2024-10-20 15:48 | XMS_ITS ---
Author Organization [address] [facility] Address [address] [place] [address] Phone Care Team Providers Care Cylinder Block Hole Reliner Name Role Phone Emma Lanza MD Primary Care Provider [phone] Active Problems Problem Noted Date Diagnosed Date Preoperative cardiovascular examination 08/11/19 Assessment & Plan (08/10/2024 4:23 PM EDT): I reviewed the patient's recent nuclear stress test and echocardiogram. Although her cardiac testing did not reveal any significant area of ischemia or decline in her cardiac function she is clearly hypervolemic and in congestive heart failure. Would hold off on any surgical procedures until this gets resolved. Perforation of uterus, initial encounter 025 Postmenopausal bleeding 06/10/2024 Bilateral carotid artery stenosis 02/03/2024 Assessment & Plan (02/03/2024 11:12 AM EST): The patient has a history of bilateral carotid artery stenosis. She is followed by the [facility] vascular surgery service. Will continue her dual [...] Welch units. As such, based on the 2022 AHA revised definition of pulmonary hypertension our [...] the patient transfer her pulmonary care to [facility] pulmonology. 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 The [facility] pulmonology team also recommended ruling out [...] her which was previously recommended by the [facility] pulmonology service. Nevertheless, the patient adamantly [...] I had a conversation with the patient's adult neuropsychologist (Dr. Fernandez). During the conversation, we discussed [...] up in his office. Assessment & Plan (08/10/2024 4:23 PM EDT): Patient has history of HFpEF. She presents today with significant fluid retention and swelling in her legs. At last office visit torsemide was restarted at 40 mg once a day however the patient is adamant about not taking this and has not taken torsemide in over 2 months. She continues to use lymphedema machine daily however this does not seem to improve her legs edema. On physical examination she is clearly overloaded with bilateral crackles to mid lung, hepatojugular reflux, JVD and significant leg edema. We discussed that moving forward with surgery at this time was not a good idea and that she should be evaluated in the emergency room and treated with IV diuretics in light of her chronic kidney disease and HFpEF. Patient has been reporting increased exertional shortness of breath and now she is also falling frequently at home. After some discussion patient was agreeable to go to [facility] for further evaluation and treatment and the report was called to the emergency room. Assessment & Plan (02/03/2024 11:12 AM EST): [...] No current plan information found. Past Plans No past plan information found. Radiation Treatments * No radiation treatments are documented for this patient in [facility]. Treatments may have been administered in another system. Lifetime Dose Tracking * Chemical Lifetime Dose Automatic Entry Manual Entr y Fluoro Time 0.75 minutes 0.75 minutes 0 minutes Air Kerma 0.84 mGy 0.84 mGy 0 mGy Dose Area Product 0.1 mGy-cm2 0.1 mGy-cm2 0 mGy-cm2 Resolved Problems Problem Noted Date Diagnosed Date Resolved Date Acute on chronic diastolic C HF (congestive heart failure) ([facility] V24, [facility] V28) 08/10/2024 08/14/2024 Endometrial thickening on ultrasound 06/10/2024 06/24/2024 Aortic valve disorder 02/19/20212023 Atherosclerosis of aorta ([facility] V24) 05/06/2013 02/03/2024 Overview (02/03/2024): Update 09/28/2019 CT: Severe vascular calcification but no aneurysm.
--- OUTSIDE RECORDS SUMMARY | 2024-10-20 15:48 | XMS_ITS | Clinical Summary ---
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 liquids (3) 1- Material does not enter airway. Mildly thick liquids (2) 1- Material does not enter airway. Thin liquids (0) 2- Material enters the airway, remains above the vocal folds, and is ejected from the airway. Noted w/ large sip of thin liquids Puree (4) 1- Material does not enter airway. Regular solids (7) 1- Material does not enter airway. Barium tablet 1- Material does not enter airway. Other: EDSON Marx, Graham Carrera, Margaret DE LEÓN, DANIELLE Yanes, & DANIELLE Welch. A Penetration-Aspiration Scale. Dysphagia 11:93-98, 1996. EDUCATION Education: Education provided: Reviewed MBS video Diet Recommendations Aspiration precautions Swallow strategies Verbal Understanding Margot Garrison [facility]-CONSULTING NETWORKING ENGINEER 10/05/2024 Please note that swallowing is a dynamic process and the skills reflected during this brief assessment may not necessarily represent the patient's swallowing function during an entire meal. Ongoing clinical judgment is strongly advised. Sylvie Delgadillo NP CONSULTING NETWORKING ENGINEER ORDERABLES Final Result * External Endoscopy (08/26/2024 9:08 AM EDT) Only the most recent of2 resultswithin the time period is included. Anatomical Region Laterality Modality Endoscopy Historical Provider GI~PROCEDURE ORDERABLES F inal Result * ECG-Annotated (08/15/2024) Only the most recent of2 resultswithin the time period is included. Provider Onbase ECG ORDERABLES Final Result * (ABNORMAL) CBC auto differential (08/14/2024 6:14 AM EDT) Only the most recent of4 resultswithin the time period is included. WBC 7.5 4.8 - 10.8 K/mcL LAB HEMETOLOGY METHOD 08/14/2024 7:23 AM [facility] RBC 3.00(L) 3.80 - 4.80 M/mcL LAB HEMETOLOGY METHOD 08/14/2024 7:23 AM [facility] Hemoglobin 9.3(L) 11.5 - 16.0 g/dL LAB HEMETOLOGY METHOD 08/14/2024 7:23 AM [facility] Hematocrit 29.0(L) 35.0 - 47.0 % LAB HEMETOLOGY METHOD 08/14/2024 7:23 AM [facility] MCV 98.0 79.0 - 98.0 FL LAB HEMETOLOGY METHOD 08/14/2024 7:23 AM [facility] MCH 31.4 27.0 - 32.0 pcg LAB HEMETOLOGY METHOD 08/14/2024 7:23 AM [facility] MCHC 32.1 32.0 - 37.0 g/dL LAB HEMETOLOGY METHOD 08/14/2024 7:23 AM [facility] RDW 14.7 11.0 - 15.0 % LAB HEMETOLOGY METHOD 08/14/2024 7:23 AM [facility] Platelets 197 130 - 400 K/mcL LAB HEMETOLOGY METHOD 08/14/2024 7:23 AM [facility] MPV 9.2 7.0 - 11.0 FL LAB HEMETOLOGY METHOD 08/14/2024 7:23 AM [facility] NRBC 0.0 <1.0 % LAB HEMETOLOGY METHOD 08/14/2024 7:23 AM [facility] NRBC Absolute 0.00 <0.10 K/mcL LAB HEMETOLOGY METHOD 08/14/2024 7:23 AM [facility] Neutrophils Relative 67.7 % LAB HEMETOLOGY METHOD 08/14/2024 7:23 AM [facility] Lymphocytes Relative 15.6 % LAB HEMETOLOGY METHOD 08/14/2024 7:23 AM [facility] Monocytes Relative 8.6 % LAB HEMETOLOGY METHOD 08/14/2024 7:23 AM [facility] Eosinophils Relative 6.6 % LAB HEMETOLOGY METHOD 08/14/2024 7:23 AM [facility] Basophils Relative 0.8 % LAB HEMETOLOGY METHOD 08/14/2024 7:23 AM [facility] Immature Granulocytes Relative 0.7 % LAB HEMETOLOGY METHOD 08/14/2024 7:23 AM [facility] Neutrophils Absolute 5.05 1.50 - 7.00 K/mcL LAB HEMETOLOGY METHOD 08/14/2024 7:23 AM [facility] Lymphocytes Absolute 1.16 1.00 - 5.00 K/mcL LAB HEMETOLOGY METHOD 08/14/2024 7:23 AM EDT [facility] Monocytes Absolute 0.64 0.20 - 1.00 K/mcL LAB HEMETOLOGY METHOD 08/14/2024 7:23 AM EDT [facility] Eosinophils Absolute 0.49 0.00 - 0.50 K/mcL LAB HEMETOLOGY METHOD 08/14/2024 7:23 AM EDT [facility] Basophils Absolute 0.06 0.00 - 0.20 K/mcL LAB HEMETOLOGY METHOD 08/14/2024 7:23 AM EDT [facility] Immature Granulocytes Absolute 0.05(H) 0.00 - 0.03 K/mcL LAB HEMETOLOGY METHOD 08/14/2024 7:23 AM EDT [facility] Blood Venous blood specimen / Unknown Venipuncture / Unknown 08/14/2024 6:14 AM EDT 08/14/2024 6:49 AM EDT us Aman Lange MD LAB BLOOD ORDERABLES Fi nal Result [facility] [address] [place] [address], * Phosphorus (08/14/2024 6:14 AM EDT) Only the most recent of2 resultswithin the time period is included. Phosphorus 4.4 2.5 - 4.5 mg/dL LAB CHEMISTRY METHOD 08/14/2024 8:09 AM EDT [facility] Blood Venous blood specimen / Unknown Venipuncture / Unknown 08/14/2024 6:14 AM EDT 08/14/2024 6:49 AM EDT us Aman Lange MD LAB BLOOD ORDERABLES Fi nal Result Performing Organization Address City/[facility]/ZIP Co de Phone Number [facility] [address] [place] [address], * Magnesium (08/14/2024 6:14 AM EDT) Only the most recent of4 resultswithin the time period is included. [facility] Magnesium 2.1 1.9 - 2.6 mg/dL LAB CHEMISTRY METHOD 08/14/2024 8:09 AM EDT [facility] Blood Venous blood specimen / Unknown Venipuncture / Unknown 08/14/2024 6:14 AM EDT 08/14/2024 6:49 AM EDT Aman Lange MD LAB BLOOD ORDERABLES Fi nal Result Performing Organization Address [facility]/ZIP Co de Phone Number [facility] [address] [place] [address], [place] [phone] * (ABNORMAL) Basic metabolic panel (08/14/2024 6:14 AM EDT) Only the most recent of3 resultswithin the time period is included. [facility] Sodium 136 133 - 145 mmol/L LAB CHEMISTRY METHOD 08/14/2024 8:09 AM [facility] Potassium 3.8 3.5 - 5.5 mmol/L LAB CHEMISTRY METHOD 08/14/2024 8:09 AM [facility] Comment:Hemolysis present Chloride 101 96 - 110 mmol/L LAB CHEMISTRY METHOD 08/14/2024 8:09 AM [facility] CO2 26 21 - 32 mmol/L LAB CHEMISTRY METHOD 08/14/2024 8:09 AM [facility] Anion Gap 9 3 - 11 LAB CHEMISTRY METHOD 08/14/2024 8:09 AM [facility] Glucose 97 70 - 100 mg/dL LAB CHEMISTRY METHOD 08/14/2024 8:09 AM EDT [facility] BUN 31(H) 5 - 25 mg/dL LAB CHEMISTRY METHOD 08/14/2024 8:09 AM EDT [facility] Creatinine 2.10(H) 0.50 - 1.10 mg/dL LAB CHEMISTRY METHOD 08/14/2024 8:09 AM T [facility] eGFR 24(L) >=60 mL/min/1. 73m2 LAB CHEMISTRY METHOD 08/14/2024 8:09 AM EDT [facility] Comment:Calculation based on the Chronic Kidney Disease Epidemiology Collaboration (CKD-EPI) equation refit without adjustment for race. BUN/Creatinine Ratio 14.8 LAB CHEMISTRY METHOD 08/14/2024 8:09 AM T [facility] Calcium 9.2 8.5 - 10.5 mg/dL LAB CHEMISTRY METHOD 08/14/2024 8:09 AM EDT [facility] Blood Venous blood specimen / Unknown Venipuncture / Unknown 08/14/2024 6:14 AM EDT 08/14/2024 6:49 AM EDT Aman Lange MD LAB BLOOD ORDERABLES Fi nal Result [facility] [address] [place] [address], * US Abdomen Complete (08/13/2024 4:05 PM EDT) Anatomical Region Laterality Modality Body Ultrasound 08/13/2024 5:33 PM EDT Impressions 08/13/2024 5:33 PM EDT 1. Hepatomegaly with diffuse fatty infiltration. 2. Portions of the pancreas and aorta not visualized. Common duct not visualized. 3. Mild cortical atrophy of both kidneys. This document has been electronically signed by: Tomás Walters MD on 08/13/2024 17:33:41 Narrative 08/13/2024 5:33 PM EDT INDICATION: acute abd pain US abdomen complete Comparison: CT - CT ABD PEL WO CONTRAST - 08/13/24 04:57 EDT Findings: The visualized pancreas is normal. Portions of the aorta are obscured. Visualized mid and distal aorta are normal caliber, measuring up to 1.4 cm. IVC is normal. The liver is echogenic and enlarged in size. There is no intrahepatic bile duct dilatation. The common duct is not visualized The gallbladder is absent. Negative Pop's sign. The main portal vein is antegrade. The right kidney is 8.2 cm in length. There is a 1.5 cm cyst in the superior pole of the right kidney. No hydronephrosis. The left kidney is 7.2 cm in length. No hydronephrosis. Both kidneys demonstrate mild cortical atrophy. The spleen is normal. No ascites. Procedure Note Tomás Walters MD - 08/13/2024 INDICATION: acute abd pain US abdomen complete Comparison: CT - CT ABD PEL WO CONTRAST - 08/13/24 04:57 EDT Findings: The visualized pancreas is normal. Portions of the aorta are obscured. Visualized mid and distal aorta are normal caliber, measuring up to 1.4 cm. IVC is normal. The liver is echogenic and enlarged in size. There is no intrahepatic bile duct dilatation. The common duct is not visualized The gallbladder is absent. Negative Pop's sign. The main portal vein is antegrade. The right kidney is 8.2 cm in length. There is a 1.5 cm cyst in the superior pole of the right kidney. No hydronephrosis. The left kidney is 7.2 cm in length. No hydronephrosis. Both kidneys demonstrate mild cortical atrophy. The spleen is normal. No ascites. IMPRESSION: 1. Hepatomegaly with diffuse fatty infiltration. 2. Portions of the pancreas and aorta not visualized. Common duct not visualized. 3. Mild cortical atrophy of both kidneys. This document has been electronically signed by: Tomás Walters MD on 08/13/2024 17:33:41 Aman Lange MD IMG US PROCEDURES Final Result * CT Abdomen Pelvis wo Contrast (08/13/2024 5:00 AM EDT) Anatomical Region Laterality Modality Body Computed Tomogra phy 08/13/2024 5:52 AM EDT Impressions 08/13/2024 5:52 AM EDT Impression: No CT explanation for the patient's reported severe abdominal pain. The ostomy is patent. There is no bowel obstruction or free air. Several chronic and/or incidental findings. 3 cm right adnexal cyst , with no comparison studies. Outpatient ultrasound could be considered. This document has been electronically signed by: Steven Richards MD on 08/13/2024 05:52:10 Narrative 08/13/2024 5:52 AM EDT INDICATION: severe abdominal pain in mid to lower abdomen CT abdomen and pelvis without contrast Comparison: None provided Findings: Dependent changes are seen of the left lung base. There is elevation of the left hemidiaphragm. The liver, adrenal glands and pancreas are unremarkable. The spleen is absent. The gallbladder is absent. Kidneys demonstrate no obstruction. Probable cysts are present bilaterally. The bladder is obscured by artifact from the left hip prosthesis. No bowel obstruction or free air. Patent left lower quadrant ostomy. There is a right adnexal cysts measuring up to 3 cm. Severe diffuse atherosclerotic disease. IVC filter noted. No acute osseous finding. Procedure Note Steven Richards MD - 08/13/2024 INDICATION: severe abdominal pain in mid to lower abdomen CT abdomen and pelvis without contrast Comparison: None provided Findings: Dependent changes are seen of the left lung base. There is elevation of the left hemidiaphragm. The liver, adrenal glands and pancreas are unremarkable. The spleen is absent. The gallbladder is absent. Kidneys demonstrate no obstruction. Probable cysts are present bilaterally. The bladder is obscured by artifact from the left hip prosthesis. No bowel obstruction or free air. Patent left lower quadrant ostomy. There is a right adnexal cysts measuring up to 3 cm. Severe diffuse atherosclerotic disease. IVC filter noted. No acute osseous finding. IMPRESSION: Impression: No CT explanation for the patient's reported severe abdominal pain. The ostomy is patent. There is no bowel obstruction or free air. Several chronic and/or incidental findings. 3 cm right adnexal cyst , with no comparison studies. Outpatient ultrasound could be considered. This document has been electronically signed by: Steven Richards MD on 08/13/2024 05:52:[address] PROCEDURES Final Resul t * Lactate (08/12/2024 11:27 PM EDT) [facility] Lactate 0.7 0.4 - 2.0 mmol/L LAB CHEMISTRY METHOD 08/13/2024 12:30 AM EDT [facility] Blood Venous blood specimen / Unknown Venipuncture / Unknown 08/12/2024 11:27 PM EDT 08/12/2024 11:32 PM EDT Ines DANIELS LAB BLOOD ORDERABLES Final Re sult [facility] [address] [place] [address], [place] [phone] * (ABNORMAL) Comprehensive metabolic panel (08/12/2024 11:27 PM EDT) Only the most recent of2 resultswithin the time period is included. [facility] Sodium 139 133 - 145 mmol/L LAB CHEMISTRY METHOD 08/13/2024 12:20 AM [facility] Potassium 3.6 3.5 - 5.5 mmol/L LAB CHEMISTRY METHOD 08/13/2024 12:20 AM [facility] Chloride 105 96 - 110 mmol/L LAB CHEMISTRY METHOD 08/13/2024 12:20 AM [facility] CO2 26 21 - 32 mmol/L LAB CHEMISTRY METHOD 08/13/2024 12:20 AM [facility] Anion Gap 8 3 - 11 LAB CHEMISTRY METHOD 08/13/2024 12:20 AM [facility] Glucose 95 70 - 100 mg/dL LAB CHEMISTRY METHOD 08/13/2024 12:20 AM [facility] BUN 30(H) 5 - 25 mg/dL LAB CHEMISTRY METHOD 08/13/2024 12:20 AM [facility] Creatinine 1.89(H) 0.50 - 1.10 mg/dL LAB CHEMISTRY METHOD 08/13/2024 12:20 AM [facility] eGFR 27(L) >=60 mL/min/1. 73m2 LAB CHEMISTRY METHOD 08/13/2024 12:20 AM [facility] Comment:Calculation based on the Chronic Kidney Disease Epidemiology Collaboration (CKD-EPI) equation refit without adjustment for race. BUN/Creatinine Ratio 15.9 LAB CHEMISTRY METHOD 08/13/2024 12:20 AM [facility] Calcium 8.3(L) 8.5 - 10.5 mg/dL LAB CHEMISTRY METHOD 08/13/2024 12:20 AM [facility] AST (SGOT) 12 10 - 42 unit/L LAB CHEMISTRY METHOD 08/13/2024 12:20 AM [facility] ALT (SGPT) 7(L) 10 - 60 unit/L LAB CHEMISTRY METHOD 08/13/2024 12:20 AM [facility] Alkaline Phosphatase 170(H) 42 - 121 unit/L LAB CHEMISTRY METHOD 08/13/2024 12:20 AM [facility] Total Protein 6.2 6.0 - 8.0 g/dL LAB CHEMISTRY METHOD 08/13/2024 12:20 AM [facility] Albumin 3.3 3.2 - 5.0 g/dL LAB CHEMISTRY METHOD 08/13/2024 12:20 AM [facility] Total Bilirubin 0.5 0.0 - 1.4 mg/dL LAB CHEMISTRY METHOD 08/13/2024 12:20 AM [facility] Blood Venous blood specimen / Unknown Venipuncture / Unknown 08/12/2024 11:27 PM EDT 08/12/2024 11:32 PM EDT us Ines DANIELS LAB BLOOD ORDERABLES Final Re sult Performing Organization Address [facility]/ZIP Co de Phone Number [facility] [address] [place] [address], [place] [phone] * Troponin I high sensitivity (08/11/2024 10:50 PM EDT) Only the most recent of3 resultswithin the time period is included. [facility] High Sensitivity Troponin I 16 <=54 ng/L LAB CHEMISTRY METHOD 08/11/2024 11:40 PM EDT [facility] Blood Venous blood specimen / Unknown Venipuncture / Unknown 08/11/2024 10:50 PM EDT 08/11/2024 11:02 PM EDT Narrative [facility] - 08/11/2024 11:40 PM EDT High levels of biotin in samples may falsely decrease hsTroponin values. Use caution when interpreting hsTroponin results in patients taking biotin who exhibit renal impairment (eGFR <60) or in patients taking more than 20 mg/day of biotin. Ines Villalobos Alisha [place] LAB BLOOD ORDERABLES Final Re sult Performing Organization Address [facility] Co de Phone Number [facility] [address] [place] [address], [place] [phone] * ECG 12 lead (08/11/2024 9:58 PM EDT) Only the most recent of3 resultswithin the time period is included. [facility] Ventricular Rate ECG 74 BPM GEMUSE Atrial Rate 74 BPM GEMUSE P-R Interval 178 ms GEMUSE QRS Duration 150 ms GEMUSE Q-T Interval 424 ms GEMUSE QTc 470 ms GEMUSE P Wave [place] 79 degrees GEMUSE R [place] -22 degrees GEMUSE T [place] 60 degrees GEMUSE ECG Interpretation Sinus rhythm with Premature atrial complexes Left bundle branch block Abnormal ECG When compared with ECG of 10-AUG-2024 18:03, Premature atrial complexes are now Present Confirmed by Bee EMERSON YUFENG ([id number]) on 08/12/2024 8:06:12 AM GEMUSE 08/11/2024 9:58 PM EDT 08/12/2024 8:06 AM EDT us Aman Lange MD ECG ORDERABLES Final R esult GEMUSE * POCT Glucose, blood (08/11/2024 8:15 AM EDT) Only the most recent of2 resultswithin the time period is included. [facility] Glucose POCT 95 70 - 100 mg/dL 08/11/2024 8:24 AM EDT [facility] Blood Capillary blood specimen / Unknown 08/11/2024 8:15 AM EDT 08/11/2024 8:25 AM EDT us Aman Lange MD LAB POINT OF CA RE TEST DOCKED DEVICE UNSOLICITED RESULTS Final Result Performing Organization Address [facility] Co de Phone Number [facility] [address] [place] [address], [place] [phone] * XR Chest 1 View (08/10/2024 5:52 PM EDT) Anatomical Region Laterality Modality Body Radiographic Claudia ging 08/11/2024 7:52 AM EDT Impressions 08/11/2024 7:56 AM EDT FINDINGS/IMPRESSION: Left retrocardiac opacity is similar compared to prior most likely representing scarring. No pleural effusion or pneumothorax. Cardiac silhouette is stable in size. Old healed deformity left proximal humerus. No acute fracture. Thoracic spinal cord stimulator in place. -------- FINAL REPORT -------- Dictated By: HELDER HARRIS Dictated Date: 08/11/2024 07:52 ET Assigned Physician: HELDER HARRIS Reviewed and Electronically Signed By: HELDER HARRIS Signed Date: 08/11/2024 07:56 ET Workstation ID: [id number] Transcribed By: Self Edit Transcribed Date: 08/11/2024 07:52 ET Narrative 08/11/2024 7:56 AM EDT XR CHEST 1 VIEW INDICATION: Pain TECHNIQUE: XR CHEST 1 VIEW COMPARISON: 12/23/2023 Procedure Note Helder Harris MD - 08/11/2024 XR CHEST 1 VIEW INDICATION: Pain TECHNIQUE: XR CHEST 1 VIEW COMPARISON: 12/23/2023 IMPRESSION: FINDINGS/IMPRESSION: Left retrocardiac opacity is similar compared toprior most likely representing scarring. No pleural effusion orpneumothorax. Cardiac silhouette is stable in size. Old healed deformityleft proximal humerus. No acute fracture. Thoracic spinal cordstimulator in place. -------- FINAL REPORT -------- Dictated By: HELDER HARRIS Dictated Date: 08/11/2024 07:52 ET Assigned Physician: HELDER HARRIS Reviewed and Electronically Signed By: HELDER HARRIS Signed Date: 08/11/2024 07:56 ET Workstation ID: [id number] Transcribed By: Self Edit Transcribed Date: 08/11/2024 07:52 ET us Miriam Rileyny Dre DO IMG XR PROCEDURES Final R esult * (ABNORMAL) B-type natriuretic peptide (08/10/2024 4:39 PM EDT) [facility] BNP 117(H) <=100 pcg/mL LAB CHEMISTRY METHOD 08/10/2024 5:30 PM EDT [facility] Blood Venous blood specimen / Unknown Venipuncture / Unknown 08/10/2024 4:39 PM EDT 08/10/2024 4:51 PM EDT us Truong Garcia MD LAB BLOOD ORDERABLES Final Res ult [facility] [address] [place] [address], [place] [phone] * Lipase (08/10/2024 4:39 PM EDT) Lipase 36 13 - 75 unit/L LAB CHEMISTRY METHOD 08/10/2024 5:23 PM EDT [facility] Blood Venous blood specimen / Unknown Venipuncture / Unknown 08/10/2024 4:39 PM EDT 08/10/2024 4:51 PM EDT us Truong Garcia MD LAB BLOOD ORDERABLES Final Res ult [facility] [address] [place] [address], [place] [phone] * NM LEXISCAN STRESS TEST W/ MYOCARDIAL PERFUSION (07/25/2024 11:56 AM EDT) Exercise/injec tion duration (min) 0 CV PACS STRESS Exercise/injec tion duration (sec) 57 CV PACS STRESS Peak SBP 126 mmHg CV PACS STRESS Peak DBP 69 mmHg CV PACS STRESS Peak HR 87 bpm CV PACS STRESS Baseline HR 82 bpm CV PACS STRESS Baseline SBP 126 mmHg CV PACS STRESS Baseline DBP 69 mmHg CV PACS STRESS Estimated workload 1.0 METS CV PACS STRESS Percent HR 61 % CV PACS STRESS Rate Pressure Product 10,962.0 mmHg*bpm CV PACS STRESS Target HR 121 bpm CV PACS STRESS TID 1.00 CV PACS STRESS Nuc Stress EF 75 % CV PAC S STRESS Nuc Rest EF 68 % CV PACS STRESS BSA 2.23 m2 CV PACS STRESS Anatomical Region Laterality Modality Nuclear Medicine 07/25/2024 10:3 2 AM EDT 07/25/2024 11:00 AM EDT Impressions 07/25/2024 12:12 PM EDT Normal Regadenoson stress test with nuclear imaging. No chest pain or EKG changes consistent with ischemia. Nuclear imaging revealed no significant perfusion defects There is a normal TID ratio. Gated SPECT imaging was performed and revealed an LVEF of 68 %. Narrative 07/25/2024 12:12 PM EDT Nuclear imaging of the left ventricle shows a normal cavity size. Myocardial perfusion imaging of the left ventricle reveals no significant perfusion defects Gated SPECT imaging was performed which demonstrated normal left ventricular systolic function. The calculated LVEF is 68 %. TID ratio is normal. There was no significant coronary artery calcification noted on CT scan. Stress Findings Total stress time was 0 min and 57 sec. Nuclear Study Quality Study technique: MPI, SPECT, multi, rest and stress, 1 day. Overall image quality is good. CT attenuation correction was utilized. No radiopharmaceutical dose was extravasated. The time from injection to rest imaging is 45 mins. The time from injection to stress imaging is 35 mins. Stress Function Comments Stress ejection fraction is 75%. Rest Function Comments Resting ejection fraction was 68%. us Kaley Duque NP CV STRESS PROCEDURES Final Res ult from Last 3 Months Insurance [employer] [place] Advance Directives Documents on File Type Date Recorded Patient Director Microbiology Expl anation Advance Directives and Living Will 08/11/2024 10:50 AM Dali Sanchez [facility] Pr oxy * Full Code - Default (Latest Code Status on File) Date Activated Date Inactivated Comments 08/10/2024 6:58 PM 08/14/2024 3:42 PM This is orde r is used when code status has not been discussed with the patient, or code status is otherwise unknown/unconfirmed To update the patient's code status, place a code status order. Do not modify or discontinue any currently active code status orders. * Full Code - Default Date Activated Date Inactivated Comments 06/22/2024 7:17 [...] discontinue any currently active code status orders. Healthcare Agents on File Name Relationship Healthcare Agent [facility] p Communication Dali Tyree Daughter Health Care Agent Jeanine Forman Daughter First Alternate Health Care Agent Care Teams Clinical Documentation Specialist Relationship Specialty Start Date End Date Emma Lanza MD [address] [place] [phone] PCP - General Internal Medicine 10/11/21
--- OUTSIDE RECORDS SUMMARY | 2024-10-20 15:48 | XMS_ITS | Encounter Summary ---
Author Organization [facility] Address [address] [place] [address] Care Team Providers Care Softball Core Molder Name Role Phone Emma Lanza MD Primary Care Provider + [phone] Encounter Details Date Type Department Care Team (Late st Contact Info) Description 10/12/2024 Lab Requisition [facility] - Main Lab [address] [facility] [place] [address] Janice Pink PA [address] [place], [place] [phone] Gross hematuria Social History Tobacco Use Types Packs/Day Years [...] for your loved ones. For example, child monitor or elderly care for an older adult? [...] AM EST documented as of this encounter Plan of Treatment Upcoming Encounters Date Type Department Care Team (Late st Contact Info) Description 04/26/2025 11:00 AM EDT Office Visit [facility] Hematology Oncology [address] [place] [address] Lauri Lovett MD [address] [place] [address] 05/01/2025 10:30 AM EDT Office Visit Vascular Surgery - [place] [address] [place] [address] Duke Alanis MD [address] [place] [address] Pending Results Name Type Priority Associated Diagnoses Date /Time Non-gynecologic cytology Pathology and Cytology Routine Gross hematuria 09/28/2024 12:00 AM EDT documented as of this encounter Visit Diagnoses Diagnosis Gross hematuria documented in this encounter Care Teams Softball Core Molder Relationship Specialty Start Date End Date Emma Lanza MD [address] [place] [address] PCP - General Internal Medicine 10/11/21 documented as of this encounter
== END 2024-10-20 15:15 | disposition home or self-care (01) ==
LOC: HO.HSMS 14:32
PROVIDERS: PCP Internal Medicine; Visit Provider Nurse Practitioner Family
DX: G25.9 Extrapyramidal and movement disorder, unspecified (principal); R25.2 Cramp and spasm; R25.1 Tremor, unspecified; R26.9 Unspecified abnormalities of gait and mobility; R41.3 Other amnesia; G20.B1 Parkinson's disease with dyskinesia, without mention of fluctuations; R29.6 Repeated falls; R44.1 Visual hallucinations
CPT/HCPCS: 98014

== ENCOUNTER 2025-01-11 12:38 | Outpatient (AMB) | payer OTHER, SELFPAY ==
--- NOTE | 2025-01-11 13:00 | A.OFFVIS_ITS ---
Vital Signs 01/11/25 13:08 BP 100/72 Intake Visit Reasons: 6 mo follow up Intake Note: Patient presents as a telehealth today for a follow up per patient request. Property Assistant Required: No Accompanied by: Self / Same As Patient Allergies codeine Allergy (Severe, Verified 10/20/24 14:29) Confusion Penicillins Allergy (Unknown, Verified 10/20/24 14:29) swelling tongue Sulfa (Sulfonamide Antibiotics) Allergy (Unknown, Verified 10/20/24 14:29) Unknown gabapentin Adverse Reaction (Verified 10/20/24 14:29) Rash HPI Comments Details: 79-yr-old female presents for f/u PD. Pt is accompanied by her She is currently residing at [facility]. They have recently converted her from short-term rehab to LTC, as she stopped progressing with PT. She has an implanted spinal stimulator - and cannot have a MRI. She states her renal function is not good - but they are monitoring it closely. ADL's: Requiring max assist w/ ADLs- she can feed herself, brush her teeth and hair. Swallowing: Continues to have difficulty swallowing, states cannot eat for long before her throat closes up on her. Tolerates moist food better. Has done ORTHOPAEDIC NURSE tx. States the MBS was normal- through GI, Sylvie DANIELS/Dr Duckworth. Voice: Hoarseness- ENT felt this was r/t h/o lung resection. Drooling: Denies Orthostatic lightheadedness: Denies at this time. Constipation: Has an ostomy Urinary symptoms: urinary frequency has increased, and now is unaware of urinary incontinence, wearing a diaper Tremor: Varies- may be mild or more strong- such when she is more fearful/worried Dyskinesia: Denies Stiffness: Denies stiffness. Muscle cramps: Denies Gait changes: She is no longer able to stand up w/o 2 assist and is now w/c bound, as when standing her legs will just give out. Freezing: Denies Falls: her last fall was 3 weeks ago, her legs became shaky and gave out during an assisted transfer. Mood: Ok Hallucinations: May see people in her periphery Memory: She is more forgetful. She previously had neuropsych eval, which did show cognitive deficits that did not meet criteria for a major neurocognitive d/o, though possibility was raised that her presentation could be seen in Parkinsonian d/o's. Sleep: Sleeping 3-4 hours per night, and denies daytime naps Exercise: Not very active 10/20/2024, HPI: Patient reports that she has been having episodes where her legs feel like they just ?disappear? from under her, and then she just falls. Once she falls, she feels fine. However, she has to request EMT support to help her get up from the ground. She states this has been worse since she was discharged home from a 5-day hospital stay for treatment of a UTI. She notes that while she was in the hospital, she was not able to walk due to receiving IV ABTs. She also reports that she had a 3-day hospital stay following a fall which she had bumped her head. She states she is feeling better in terms of the UTI s/s. Her hallucinations are about the same. She has been discharged home with home services, including PT. She is now using a w/c in her apartment, as she is fearful of walking with her walker. She states it was someone at her Ind living who suggested she use the w/c. She has just had her 1st PT eval, and has her 1st tx session tomorrow. She is worried that she will be confined to the w/c for the rest of her life and will need to move to a usp- states a home nurse told her this. 08/30/2024, previous HPI: Pt requested urgent telephone visit to discuss recent falls and hallucinations. She reports she was hospitalized 08/11/23 for treatment of fluid overload. Review of [facility] admission 08/10/2024 through 08/14/2024, showed the patient had seen her president consumer [employer] for preoperative evaluation for a orthopedic procedure, however patient was found to be in fluid overload having gain 30 lb in the previous 6 months- and patient was transferred to the hospital. During admission, patient was treated for acute on chronic diastolic CHF and hypokalemia, was attributed to patient having stopped her diuretics txs. Hypokalemia was repleted with potassium supplementation. Patient also had nonspecific abdominal pain, with 08/13/2024 abdominal ultrasound showing hepatomegaly with diffuse fatty infiltration, the abdominal pain had resolved upon discharge, and patient was advised to follow a low-fat carbohydrate restricted diet. Patient was discharged with home nursing and PT. On review of recent [facility] portal, patient had a ER evaluation on 08/09/2024 for eval of a fall. UA showed + bacteria and WBCs/RBCs- unclear if this was addressed during subsequent hospitalization. Patient states she can just walking and all of a sudden fall to the floor. Reports the falling was occurring before and after this recent hospitalization and the falls are not better/worse since d/c home. The falls are making it harder to walk w/ her walker. She has chronic LE lymphedema. Denies orthostatic lightheaded dizziness, or LOC. Per nephrology note- pt has a h/o OH d/t urosepsis which required tx w/ midodrine- however pt does not recall this. She is seeing people in her house or sees a spot like it is moving. She is compliant w/ CD-LD ER 25-100mg- 2 tabs qam and then 1 tab bid. She does not notice any chnage in falls or hallucinations r/t her CD-LD doses. Previous HPI, 07/06/2024: Pt reports she broke her right foot 2 weeks ago at her dentist's office. States she was standing up after toileting, pulling up her pants, when all of a sudden she lost full control of her legs and they just gave out, she tried to prevent herself from falling by grabbing the grab bars but she could not hold on, and just fell. She required assist from the dental staff to get up. She went home via her transportation and then went to [facility]. She was given a walking shoe and advised to f/u with her ortho. Initially she was using her w/c more. She states ortho advised her to continue using the walking shoe and start walking w/ her walker again. Taking CD-LD IR 25-100mg 1.5 tabs po 3 x's per day since last visit (increased from 1 tab t.i.d.), which she feels helped some. ADL's: Ind but slower. She has a HOOK UP twice a week, who helps w/ home care. Swallowing: Continues to have difficulty swallowing, states cannot eat for long before her throat closes up on her- she is still waiting to have a f/u MBS through GI, Sylvie DANIELS/Dr Duckworth. Voice: Hoarseness- ENT felt this was r/t h/o lung resection. Drooling: Denies Orthostatic lightheadedness: Sometimes, usually brief. Taking 4 20oz bottles of water per day. Constipation: Has an ostomy Urinary symptoms: urinary frequency- thinks it is a bit more, so she is prone to skipping her diuretic tx. Tremor: Tremor is a bit better. Dyskinesia: States her LLE will jump on its own, but had BLE involuntary leg movements at night. Stiffness: Denies stiffness. Legs can cramp/tighten when elevating them, resolves with putting her legs down. Gait changes: States her gait varies- some days better than others, still affected by her BLE edema- using a BLE compression device but she is not sure it helps. Maybe prone totrip on her own feet but not fall. She is f/b pulmonology/cardiology. Uses a walker. Seated walker was not helpful. Freezing: Denies Falls: Denies any other interval falls. Mood: Ok Hallucinations: Is now seeing things that are not there which is freaking me out - sees people, a horse- now during the night and day. Memory: Feels memory is not good- feels forgetful. She previously had neuropsych eval, which did show cognitive deficits that did not meet criteria for a major neurocognitive d/o, though possibility was raised that her presentation could be seen in Parkinsonian d/o's. Sleep: Sleeping is worse, sleeping 1-2 hours and then up for 1-2 hours. Overall states not sleeping > 2-3 hours. Denies daytime naps. Exercise: None. Still walking to the dining room, to the mailroom. Other: The other day, she had an isolated sensation of Right leg feeling like it was in a knot and then jsut let go (did not last long), while sitting w/ legs elevated in the evening. [facility] Medical History Vitamin D deficiency Vitamin B12 deficiency Recurrent major depression Pernicious anemia Peripheral nerve disease Mitral valvular regurgitation Lumbar spondylolysis Left bundle branch block HTN (hypertension) HLD (hyperlipidemia) H/O methicillin resistant Staphylococcus aureus Hearing loss Gout GERD (gastroesophageal reflux disease) Female stress incontinence Cyst of ovary COPD (chronic obstructive pulmonary disease) Chronic back pain Atherosclerosis of both carotid arteries Atherosclerosis of aorta Aortic valve disorder Anxiety Anemia of chronic disease Allergic rhinitis Surgical History History of ileostomy Hx of appendectomy H/O shoulder surgery H/O knee surgery Hx of cholecystectomy Family History Father History of heart attack Mother Cancer Brother Brain cancer Social History Alcohol intake: never Patient Tobacco Use Status: Never used Tobacco Physical Exam Vital Signs: Last Vital Signs BP 100/72 01/11/25 13:08 Const General: cooperative and no acute distress Resp Effort & Inspection: normal respiratory effort and able to speak in complete sentences Neuro Other: General: Alert and oriented, with increased patchy STM lapses Expression: Slightly decreased expression and blink, slight left facial droop Voice: Soft Tremor: No LUE rest tremor today. BUE postural L > R mild tremor Tone: Very mild LUE tone today Dyskinesia: Mild LE intermittent dyskinesia FFM: BUE decreased, Left more so, Foot taps: BLE bradykineisa, more so on the left Gait: Sitting upright in wheelchair Psych: Pleasant affect. Results Reviewed Results Reviewed: RESULT: CT Head/Brain W/O Contrast CT Head/Brain W/O Contrast Reason: Status post fall; Clinical Question(s): Hematoma. TECHNIQUE: Incremental CT without contrast through the head was formatted in axial and coronal plane. Weight-based protocol using automatic tube modulation was performed to optimize scan parameters. COMPARISON: 10/05/2024. FINDINGS: BRAIN and EXTRA-AXIAL SPACES: No parenchymal hemorrhage, midline shift or mass effect. Martell-white matter differentiation is well preserved. No acute infarct. Mild prominence of the ventricles and sulci consistent with parenchymal volume loss. No subarachnoid hemorrhage, subdural or epidural collections. CALVARIUM, SKULL BASE AND SOFT TISSUES: No fractures or suspicious bony lesions. The paranasal sinuses and mastoid air cells are clear. Included orbits and globes appear intact status post kaltag lens extraction on the right. IMPRESSION: No acute process. RESULT: CT Abd/Pelvis W/O Contrast CT Abd/Pelvis W/O Contrast Hx of Present Illness: Pt states she is not able to urinate; Reason: Pain; Clin ical Question(s): Stone(s) TECHNIQUE: Spiral CT through the abdomen and pelvis without IV contrast formatted in 3 planes. This study was performed without oral contrast. Weight- based protocol using automatic tube modulation was used to optimize exposure parameters. CTDIvol Body: 39.31 mGy, DLP Body: 1671 mGy*cm. COMPARISON: CT pelvis from 10/05/2024 CT abdomen pelvis and 03/19/2023 FINDINGS: Clip On Sunglasses Inspector View Findings, Lines and Tubes: Spinal stimulator. Visualized Chest: Lung bases are clear. No pleural effusion. The heart is normal in size. No pericardial effusion. Diaphragm: Normal. Liver: Dysmorphic liver with undulating contour. Gallbladder: Absent consistent with prior cholecystectomy. Bile ducts: Biliary dilation likely from post cholecystectomy state. Spleen: Not seen. Pancreas: Severely atrophic. Adrenal glands: Minimal thickening left adrenal gland probably due to hyperplasia. Kidneys and ureters: Atrophic kidneys. Tiny nonobstructing stones in both kidneys. Distal ureters suboptimally assessed. 12 mm exophytic intermediate density lesion in the right upper pole (601:33). Small hypodense cysts. Bladder: Normal. Reproductive organs: 3.2 x 2.7 cm cystic focus in the right adnexa, closely apposed to the uterus, unchanged from 10/05/2024. This measure 3.4 x 2.3 cm in 2020. Left adnexa is unremarkable. Stomach, small bowel, and large bowel: Total colectomy with left lower quadrant ileostomy. Small bowel anastomosis in the mid abdomen. Appendix: Absent. Peritoneum and retroperitoneum: No ascites or pneumoperitoneum. No omental or mesenteric lesions. Lymph nodes: No enlarged lymph nodes. Blood vessels: Severe atherosclerotic vascular calcification but no aneurysm. IVC filter. Abdominal and pelvic wall: Abdominal laxity with postsurgical change. Bones: Left hip arthroplasty with associated artifact. Spine degenerative changes. Osteopenia. IMPRESSION: No acute abnormality in the abdomen or pelvis. Small nonobstructing renal stones. Intermediate density right upper pole renal lesion could represent a hemorrhagic or proteinaceous cyst. Dedicated evaluation with renal mass CT or MRI can be considered on a nonemergent basis. 3.2 cm right adnexal cyst similar to only minimally increased in size from 2020. Assessment & Plan Assessment & Plan (1) Parkinson's disease with dyskinesia: Code(s): G20.B1 - Parkinson's disease with dyskinesia, without mention of fluctuations Category: Medical Qualifiers: Fluctuating manifestations: without fluctuating manifestations Qualified Code(s): G20.B1 - Parkinson's disease with dyskinesia, without mention of fluctuations (2) Muscle cramps: Code(s): R25.2 - Cramp and spasm Category: Medical (3) Tremor: Code(s): R25.1 - Tremor, unspecified Category: Medical (4) Memory difficulties: Code(s): R41.3 - Other amnesia Category: Medical (5) Frequent falls: Code(s): R29.6 - Repeated falls Category: Medical (6) Hallucination, visual: Code(s): R44.1 - Visual hallucinations Category: Medical Plan Discussed that her current inability to walk, is likely multifactorial including Parkinson's, lymphedema, cardiovascular and renal disease, which is likely compounded by activity intolerance with decreased strength and endurance and prolonged immobility. * Continue Rytary 23.75-95mg 2 caps 3 x's per day- in hopes this helps tremor and bradykinesia w/o exacerbating hallucinations. * Previous trials: CD-LD IR- not tolerated- caused dyskinesias and hallucinations. * Encouraged patient to continue PT exercises * If she is able to do these exercises consistently twice a day, we can consider requesting a new PT evaluation * For dysphagia- continue safe swallowing strategies per ORTHOPAEDIC NURSE * Follow-up with cardiology and nephrology as scheduled. * René Olmos-Galo- okay so he has your president consumer [employer] * Dr Thompson and Janice silk conditioner Pt to follow-up in 6 months or sooner prn. Coding Level of Care Code Est Pt Level 4 (88215) Complex visit Add On G2211 Diagnoses Parkinson's disease with dyskinesia without fluctuating manifestations G20.B1 Fluctuating manifestations: without fluctuating manifestations Muscle cramps R25.2 Tremor R25.1 Memory difficulties R41.3 Frequent falls R29.6 Hallucination, visual R44.1
[2025-01-11 13:08] VITALS: BP 100/72
--- OUTSIDE RECORDS SUMMARY | 2025-01-11 15:38 | XMS_ITS | Encounter Summary ---
Author Organization [facility] Address [address] [place] [address] Care Team Providers Care Applications Manager Name Role Phone Emma Lanza MD Primary Care Provider + [phone] Encounter Details Date Type Department Care Team (Late st Contact Info) Description 10/12/2024 Lab Requisition [facility] - Main Lab [address] [facility] [place] [address] Janice Pink PA [address] [place], [place] [phone] Gross hematuria Social History Tobacco Use Types [...] for your loved ones. For example, child specialist or elderly care for an older [...] Date Recorded What is your living situation? Unrecognized valu e 08/11/2024 Interpersonal Safety Answer Date Record ed Physical Abuse Unrecognized value 08/11/2024 Verbal Abuse Unrecognized value 08/11/2024 Comments No Sex and Gender Information [...] Description 04/26/2025 11:00 AM EDT Office Visit [facility] Hematology Oncology [address] [place] [phone] Lauri Lovett MD [address] [place] [phone] 05/01/2025 10:30 AM EDT Office Visit Vascular Surgery - [place] [address] [place] [phone] Duke Alanis MD [address] [place] [phone] 06/07/2025 11:00 AM EDT Office Visit Gastroenterology - [address] [facility] 299 [facility] [address] [place] [phone] Max Carvajal MD [address] [facility] [address] [place] [address] documented as of this encounter Procedures Procedure Name Priority Date/Time Associated Diagnosis Comments NON-GYNECOLOGIC CYTOLOGY Routine 09/28/2024 12:00 AM EDT Gross hematuria documented in this encounter Results * Non-gynecologic cytology (09/28/2024 12:00 AM EDT) Final Diagnosis A. Urine, Voided, (): Acute inflammation present. Scant urothelial cellularity. Results of UroVysion fluorescence in situ hybridization (FISH) testing: CEP3: Normal CEP7: Normal CEP17: Normal LSI 9p21: Normal Interpretation: Normal profile Controls stained appropriately. Note: The results are intended as a screening device and should be interpreted in association with other clinical and pathological findings. 10/24/2024 1:53 PM EDT [facility] Specimen A Adequacy Satisfactory for evaluation 10/24/2024 1:53 PM EDT [facility] Clinical Information Gross hematuria R31.0 Urine Cytology/FISH (now) 10/24/2024 1:53 PM EDT [facility] Gross Description A. Urine, Voided, (): Received one ThinPrep slide for cytology and one ThinPrep slide for UroVysion FISH 10/24/2024 1:53 PM EDT [facility] Disclaimer Unless otherwise specified, all tissue is 10% NB formalin fixed and paraffin embedded. Technical pathology services provided by [facility] at [address], [place] [address] (CLIA #[id number]/Bri Rees MD, Geek Squad Agent) 10/24/2024 1:53 PM EDT [facility] Urine Urine specimen from urethra / Unknown 09/28/2024 10/12/2024 4:12 PM EDT us [facility] CYTOLOGY ORDERABLES Final Result [facility] [address] [place] [address], documented in this encounter Visit Diagnoses Diagnosis Gross hematuria documented in this encounter Care Teams Applications Manager Relationship Specialty Start Date End Date Emma Lanza MD [address] [place] [address] PCP - General Internal Medicine 10/11/21 documented as of this encounter
--- OUTSIDE RECORDS SUMMARY | 2025-01-11 15:38 | XMS_ITS | Encounter Summary ---
Author Organization [facility] Address [address] [place] [address] Care Team Providers Care Tailing Machine Operator Name Role Phone Emma Lanza MD Primary Care Provider + [phone] Encounter Details Date Type Department Care Team (Late st Contact Info) Description 12/23/2024 Lab Requisition [facility] - Main Lab [address] [place] [address] Oleksandr Worthy MD [address] [place], [place] [phone] Abnormal finding of blood chemistry, unspecified Social History Tobacco Use Types Packs/Day Years [...] for your loved ones. For example, child caregiver or elderly care for an older adult? [...] Description 04/26/2025 11:00 AM EDT Office Visit [facility] Hematology Oncology [address] [place] [phone] Lauri Lovett MD [address] [place] [phone] 05/01/2025 10:30 AM EDT Office Visit Vascular Surgery - [place] [address] [place] [phone] Duke Alanis MD [address] [place] [phone] 06/07/2025 11:00 AM EDT Office Visit Gastroenterology - [address] [facility] [address] [facility] [address] [place] [phone] Max Carvajal MD 299 [facility] [address] [place] [address] documented as of this encounter Procedures Procedure Name Priority Date/Time Associated Diagnosis Comments COMPREHENSIVE METABOLIC PANEL Routine 12/23/2024 11:21 AM EST Abnormal finding of blood chemistry, unspecified documented in this encounter Results * (ABNORMAL) Comprehensive metabolic panel (12/23/2024 11:21 AM EST) Sodium 127(L) 133 - 145 mmol/L LAB CHEMISTRY METHOD 12/23/2024 2:45 PM EST [facility] Potassium 3.2(L) 3.5 - 5.5 mmol/L LAB CHEMISTRY METHOD 12/23/2024 2:45 PM EST [facility] Chloride 94(L) 96 - 110 mmol/L LAB CHEMISTRY METHOD 12/23/2024 2:45 PM EST [facility] CO2 25 21 - 32 mmol/L LAB CHEMISTRY METHOD 12/23/2024 2:45 PM EST [facility] Anion Gap 8 3 - 11 LAB CHEMISTRY METHOD 12/23/2024 2:45 PM [facility] Glucose 119(H) 70 - 100 mg/dL LAB CHEMISTRY METHOD 12/23/2024 2:45 PM [facility] BUN 24 5 - 25 mg/dL LAB CHEMISTRY METHOD 12/23/2024 2:45 PM [facility] Creatinine 1.95(H) 0.50 - 1.10 mg/dL LAB CHEMISTRY METHOD 12/23/2024 2:45 PM [facility] eGFR 26(L) >=60 mL/min/1. 73m2 LAB CHEMISTRY METHOD 12/23/2024 2:45 PM [facility] Comment:Calculation based on the Chronic Kidney Disease Epidemiology Collaboration (CKD-EPI) equation refit without adjustment for race. BUN/Creatinine Ratio 12.3 LAB CHEMISTRY METHOD 12/23/2024 2:45 PM [facility] Calcium 9.1 8.5 - 10.5 mg/dL LAB CHEMISTRY METHOD 12/23/2024 2:45 PM [facility] AST (SGOT) 15 10 - 42 unit/L LAB CHEMISTRY METHOD 12/23/2024 2:45 PM [facility] ALT (SGPT) <6(L) 10 - 60 unit/L LAB CHEMISTRY METHOD 12/23/2024 2:45 PM [facility] Comment:Results verified by repeat testing Alkaline Phosphatase 196(H) 42 - 121 unit/L LAB CHEMISTRY METHOD 12/23/2024 2:45 PM [facility] Total Protein 6.1 6.0 - 8.0 g/dL LAB CHEMISTRY METHOD 12/23/2024 2:45 PM [facility] Albumin 3.2 3.2 - 5.0 g/dL LAB CHEMISTRY METHOD 12/23/2024 2:45 PM [facility] Total Bilirubin 0.6 0.0 - 1.4 mg/dL LAB CHEMISTRY METHOD 12/23/2024 2:45 PM EST [facility] Blood Venous blood specimen / Unknown Venipuncture / Unknown 12/23/2024 11:21 AM EST 12/23/2024 12:12 PM EST us Oleksandr Worthy MD LAB BLOOD ORDERABLES Final R esult [facility] [address] [place] [address], documented in this encounter Visit Diagnoses Diagnosis Abnormal finding of blood chemistry, unspecified documented in this encounter Care Teams Tailing Machine Operator Relationship Specialty Start Date End Date Emma Lanza MD [address] [place] [id number] PCP - General Internal Medicine 10/11/21 documented as of this encounter
--- OUTSIDE RECORDS SUMMARY | 2025-01-11 15:38 | XMS_ITS ---
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 Past Plans ONCOLOGY INFUSION THERAPY Plan Name Start Date Discontinue Date Treatment Medications Discontinue Reason Plan Provider [facility] DENOSUMAB 60MG (PROLIA) 04/11/2022 11/02/2023 denosumab (PROLIA) Therapy Complete Lauri Lovett MD Radiation Treatments * No radiation treatments are documented for this patient in [facility]. Treatments may have been administered in another system.
--- OUTSIDE RECORDS SUMMARY | 2025-01-11 15:39 | XMS_ITS | Encounter Summary ---
Author Organization [facility] Address [address] [place] [address] Care Team Providers Care Cellophaner Name Role Phone Emma Lanza MD Primary Care Provider + [phone] Encounter Details Date Type Department Care Team (Late st Contact Info) Description 12/20/2024 Lab Requisition [facility] - Main Lab [address] [place] [address] Oleksandr Worthy MD [address] [place] [address] Parkinson's disease without dyskinesia, without mention of fluctuations (CMS/HCC V24, CMS/HCC V28); Acute kidney failure, unspecified (CMS/HCC V24); Gastro-esophageal reflux disease without esophagitis; Anemia, unspecified; Essential (primary) hypertension Social History Tobacco Use Types Packs/Day Years [...] for your loved ones. For example, child day care teacher or elderly care for an older adult? [...] Visit [facility] Hematology Oncology [address] [place] [phone] Lauri Lovett MD [address] [place] [phone] 05/01/2025 10:30 AM EDT Office Visit Vascular Surgery - [place] [address] [place] [phone] Duke Alanis MD [address] [place] [phone] 06/07/2025 11:00 AM EDT Office Visit Gastroenterology - [address] [facility] [address] [place] [address] Max Carvajal MD 299 [facility] [address] [place] [address] documented as of this encounter Procedures Procedure Name Priority Date/Time Associated Diagnosis Comments COMPLETE BLOOD COUNT Routine 12/20/2024 6:10 AM EST Parkinson's disease without dyskinesia, without mention of fluctuations (CMS/HCC V24, CMS/HCC V28) Acute kidney failure, unspecified (CMS/HCC V24) Gastro-esophageal reflux disease without esophagitis Anemia, unspecified Essential (primary) hypertension COMPREHENSIVE METABOLIC PANEL Routine 12/20/2024 6:10 AM EST Parkinson's disease without dyskinesia, without mention of fluctuations (CMS/HCC V24, CMS/HCC V28) Acute kidney failure, unspecified (CMS/HCC V24) Gastro-esophageal reflux disease without esophagitis Anemia, unspecified Essential (primary) hypertension documented in this encounter Results * (ABNORMAL) Comprehensive metabolic panel (12/20/2024 6:10 AM EST) Sodium 123(L) 133 - 145 mmol/L LAB CHEMISTRY METHOD 12/20/2024 11:18 AM [facility] Potassium 3.5 3.5 - 5.5 mmol/L LAB CHEMISTRY METHOD 12/20/2024 11:18 AM [facility] Chloride 89(L) 96 - 110 mmol/L LAB CHEMISTRY METHOD 12/20/2024 11:18 AM [facility] CO2 23 21 - 32 mmol/L LAB CHEMISTRY METHOD 12/20/2024 11:18 AM [facility] Anion Gap 11 3 - 11 LAB CHEMISTRY METHOD 12/20/2024 11:18 AM [facility] Glucose 72 70 - 100 mg/dL LAB CHEMISTRY METHOD 12/20/2024 11:18 AM [facility] BUN 35(H) 5 - 25 mg/dL LAB CHEMISTRY METHOD 12/20/2024 11:18 AM [facility] Creatinine 2.10(H) 0.50 - 1.10 mg/dL LAB CHEMISTRY METHOD 12/20/2024 11:18 AM [facility] eGFR 24(L) >=60 mL/min/1. 73m2 LAB CHEMISTRY METHOD 12/20/2024 11:18 AM [facility] Comment:Calculation based on the Chronic Kidney Disease Epidemiology Collaboration (CKD-EPI) equation refit without adjustment for race. BUN/Creatinine Ratio 16.7 LAB CHEMISTRY METHOD 12/20/2024 11:18 AM [facility] Calcium 9.0 8.5 - 10.5 mg/dL LAB CHEMISTRY METHOD 12/20/2024 11:18 AM [facility] AST (SGOT) 12 10 - 42 unit/L LAB CHEMISTRY METHOD 12/20/2024 11:18 AM [facility] ALT (SGPT) 10 10 - 60 unit/L LAB CHEMISTRY METHOD 12/20/2024 11:18 AM [facility] Alkaline Phosphatase 182(H) 42 - 121 unit/L LAB CHEMISTRY METHOD 12/20/2024 11:18 AM [facility] Total Protein 5.7(L) 6.0 - 8.0 g/dL LAB CHEMISTRY METHOD 12/20/2024 11:18 AM [facility] Albumin 3.1(L) 3.2 - 5.0 g/dL LAB CHEMISTRY METHOD 12/20/2024 11:18 AM [facility] Total Bilirubin 0.6 0.0 - 1.4 mg/dL LAB CHEMISTRY METHOD 12/20/2024 11:18 AM [facility] Blood Venous blood specimen / Unknown Venipuncture / Unknown 12/20/2024 6:10 AM EST 12/20/2024 9:21 AM EST Oleksandr Worthy MD LAB BLOOD ORDERABLES Final R esult [facility] [address] [place] [address], * (ABNORMAL) Complete blood count (12/20/2024 6:10 AM EST) WBC 6.4 4.8 - 10.8 K/[facility] LAB HEMETOLOGY METHOD 12/20/2024 1:16 PM [facility] RBC 2.90(L) 3.80 - 4.80 M/[facility] LAB HEMETOLOGY METHOD 12/20/2024 1:16 PM [facility] Hemoglobin 9.1(L) 11.5 - 16.0 g/dL LAB HEMETOLOGY METHOD 12/20/2024 1:16 PM [facility] Hematocrit 26.0(L) 35.0 - 47.0 % LAB HEMETOLOGY METHOD 12/20/2024 1:16 PM [facility] MCV 90.9 79.0 - 98.0 FL LAB HEMETOLOGY METHOD 12/20/2024 1:16 PM EST [facility] MCH 31.8 27.0 - 32.0 pcg LAB HEMETOLOGY METHOD 12/20/2024 1:16 PM [facility] MCHC 35.0 32.0 - 37.0 g/dL LAB HEMETOLOGY METHOD 12/20/2024 1:16 PM EST [facility] RDW 14.3 11.0 - 15.0 % LAB HEMETOLOGY METHOD 12/20/2024 1:16 PM EST [facility] Platelets 207 130 - 400 K/mcL LAB HEMETOLOGY METHOD 12/20/2024 1:16 PM EST [facility] MPV 9.0 7.0 - 11.0 FL LAB HEMETOLOGY METHOD 12/20/2024 1:16 PM EST [facility] NRBC 0.0 <1.0 % LAB HEMETOLOGY METHOD 12/20/2024 1:16 PM [facility] NRBC Absolute 0.00 <0.10 K/mcL LAB HEMETOLOGY METHOD 12/20/2024 1:16 PM [facility] Blood Venous blood specimen / Unknown Venipuncture / Unknown 12/20/2024 6:10 AM EST 12/20/2024 9:21 AM EST us Oleksandr Worthy MD LAB BLOOD ORDERABLES Final R esult [facility] [address] [place] [address], documented in this encounter Visit Diagnoses Diagnosis Parkinson's disease without dyskinesia, without mention of fluctuations (CMS/HCC V24, CMS/HCC V28) Acute kidney failure, unspecified (CMS/HCC V24) Acute kidney failure, unspecified Gastro-esophageal reflux disease without esophagitis Anemia, unspecified Essential (primary) hypertension Unspecified essential hypertension documented in this encounter Care Teams Cellophaner Relationship Specialty Start Date End Date Emma Lanza MD [address] [place] [phone] PCP - General Internal Medicine 10/11/21 documented as of this encounter
--- OUTSIDE RECORDS SUMMARY | 2025-01-11 15:39 | XMS_ITS | Encounter Summary ---
Author Organization [facility] Address [address] [place] [address] Care Team Providers Care Hide Spreader Name Role Phone Emma Lanza MD Primary Care Provider + [phone] Encounter Details Date Type Department Care Team (Late st Contact Info) Description 12/12/[address] [facility] - Main Lab [address] [place] [address] Oleksandr Worthy MD [address] [place] [address] Parkinson's disease without dyskinesia, without mention of fluctuations (CMS/HCC V24, CMS/HCC V28); Acute kidney failure, unspecified (CMS/HCC V24); Atherosclerotic heart disease of [place] coronary artery without angina pectoris; Anemia, unspecified; Essential (primary) hypertension Social History [...] for your loved ones. For example, child welfare worker or elderly care for an older adult? [...] Description 04/26/2025 11:00 AM EDT Office Visit [facility] Hematology Oncology [address] [place] [phone] Lauri Lovett MD [address] [place] [phone] 05/01/2025 10:30 AM EDT Office Visit Vascular Surgery - [place] [address] [facility] [address] [place] [phone] Duke Alanis MD [address] [place] [phone] 06/07/2025 11:00 AM EDT Office Visit Gastroenterology - [address] [facility] [address] [place] [address] Max Carvajal MD 299 [facility] [address] [place] [address] documented as of this encounter Procedures Procedure Name Priority Date/Time Associated Diagnosis Comments COMPLETE BLOOD COUNT Routine 12/12/2024 8:46 AM EDT Parkinson's disease without dyskinesia, without mention of fluctuations (CMS/HCC V24, CMS/HCC V28) Acute kidney failure, unspecified (CMS/HCC V24) Atherosclerotic heart disease of [place] coronary artery without angina pectoris Anemia, unspecified Essential (primary) hypertension COMPREHENSIVE METABOLIC PANEL Routine 12/12/2024 8:46 AM EDT Parkinson's disease without dyskinesia, without mention of fluctuations (CMS/HCC V24, CMS/HCC V28) Acute kidney failure, unspecified (CMS/HCC V24) Atherosclerotic heart disease of [place] coronary artery without angina pectoris Anemia, unspecified Essential (primary) hypertension documented in this encounter Results * (ABNORMAL) Comprehensive metabolic panel (12/12/2024 8:46 AM EDT) Sodium 129(L) 133 - 145 mmol/L LAB CHEMISTRY METHOD 12/12/2024 10:47 AM [facility] Potassium 3.3(L) 3.5 - 5.5 mmol/L LAB CHEMISTRY METHOD 12/12/2024 10:47 AM [facility] Chloride 96 96 - 110 mmol/L LAB CHEMISTRY METHOD 12/12/2024 10:47 AM [facility] CO2 23 21 - 32 mmol/L LAB CHEMISTRY METHOD 12/12/2024 10:47 AM [facility] Anion Gap 10 3 - 11 LAB CHEMISTRY METHOD 12/12/2024 10:47 AM [facility] Glucose 90 70 - 100 mg/dL LAB CHEMISTRY METHOD 12/12/2024 10:47 AM [facility] BUN 54(H) 5 - 25 mg/dL LAB CHEMISTRY METHOD 12/12/2024 10:47 AM [facility] Creatinine 2.22(H) 0.50 - 1.10 mg/dL LAB CHEMISTRY METHOD 12/12/2024 10:47 AM [facility] eGFR 22(L) >=60 mL/min/1. 73m2 LAB CHEMISTRY METHOD 12/12/2024 10:47 AM [facility] Comment:Calculation based on the Chronic Kidney Disease Epidemiology Collaboration (CKD-EPI) equation refit without adjustment for race. BUN/Creatinine Ratio 24.3 LAB CHEMISTRY METHOD 12/12/2024 10:47 AM [facility] Calcium 9.8 8.5 - 10.5 mg/dL LAB CHEMISTRY METHOD 12/12/2024 10:47 AM [facility] AST (SGOT) 15 10 - 42 unit/L LAB CHEMISTRY METHOD 12/12/2024 10:47 [facility] ALT (SGPT) 7(L) 10 - 60 unit/L LAB CHEMISTRY METHOD 12/12/2024 10:47 AM [facility] Alkaline Phosphatase 165(H) 42 - 121 unit/L LAB CHEMISTRY METHOD 12/12/2024 10:47 AM [facility] Total Protein 6.1 6.0 - 8.0 g/dL LAB CHEMISTRY METHOD 12/12/2024 10:47 AM [facility] Albumin 3.4 3.2 - 5.0 g/dL LAB CHEMISTRY METHOD 12/12/2024 10:47 AM [facility] Total Bilirubin 0.6 0.0 - 1.4 mg/dL LAB CHEMISTRY METHOD 12/12/2024 10:47 AM [facility] Blood Venous blood specimen / Unknown Venipuncture / Unknown 12/12/2024 8:46 AM EDT 12/12/2024 9:28 AM EDT us Oleksandr Worthy MD LAB BLOOD ORDERABLES Final R esult [facility] [address] [place] [address], [place] [phone] * (ABNORMAL) Complete blood count (12/12/2024 8:46 AM EDT) WBC 7.8 4.8 - 10.8 K/mcL LAB HEMETOLOGY METHOD 12/12/2024 10:25 AM EDT [facility] RBC 3.10(L) 3.80 - 4.80 M/[facility] LAB HEMETOLOGY METHOD 12/12/2024 10:25 AM T [facility] Hemoglobin 9.8(L) 11.5 - 16.0 g/dL LAB HEMETOLOGY METHOD 12/12/2024 10:25 AM EDT [facility] Hematocrit 29.1(L) 35.0 - 47.0 % LAB HEMETOLOGY METHOD 12/12/2024 10:25 AM EDT [facility] MCV 95.4 79.0 - 98.0 FL LAB HEMETOLOGY METHOD 12/12/2024 10:25 AM EDT [facility] MCH 32.1(H) 27.0 - 32.0 pcg LAB HEMETOLOGY METHOD 12/12/2024 10:25 AM EDT [facility] MCHC 33.7 32.0 - 37.0 g/dL LAB HEMETOLOGY METHOD 12/12/2024 10:25 AM EDT [facility] RDW 14.8 11.0 - 15.0 % LAB HEMETOLOGY METHOD 12/12/2024 10:25 AM [facility] Platelets 200 130 - 400 K/mcL LAB HEMETOLOGY METHOD 12/12/2024 10:25 AM EDT [facility] MPV 9.7 7.0 - 11.0 FL LAB HEMETOLOGY METHOD 12/12/2024 10:25 AM EDT [facility] NRBC 0.0 <1.0 % LAB HEMETOLOGY METHOD 12/12/2024 10:25 AM [facility] NRBC Absolute 0.00 <0.10 K/mcL LAB HEMETOLOGY METHOD 12/12/2024 10:25 AM T [facility] Blood Venous blood specimen / Unknown Venipuncture / Unknown 12/12/2024 8:46 AM EDT 12/12/2024 9:28 AM EDT us Oleksandr Worthy MD LAB BLOOD ORDERABLES Final R esult [facility] [address] [place] [address], documented in this encounter Visit Diagnoses Diagnosis Parkinson's disease without dyskinesia, without mention of fluctuations (CMS/HCC V24, CMS/HCC V28) Acute kidney failure, unspecified (CMS/HCC V24) Acute kidney failure, unspecified Atherosclerotic heart disease of [place] coronary artery without angina pectoris Anemia, unspecified Essential (primary) hypertension Unspecified essential hypertension documented in this encounter Care Teams Hide Spreader Relationship Specialty Start Date End Date Emma Lanza MD [address] [place] [address] PCP - General Internal Medicine 10/11/21 documented as of this encounter
--- OUTSIDE RECORDS SUMMARY | 2025-01-11 15:39 | XMS_ITS ---
Author Organization 300 [facility] Address [address] [place] [address] Phone Care Team Providers Care Inventory Specialist Manager Name Role Phone Emma Lanza MD Primary Care Provider + [phone] Active Problems Problem Noted Date Diagnosed Date [...] artery stenosis. She is followed by the [facility] vascular surgery service. Will continue her dual [...] the patient transfer her pulmonary care to [facility] pulmonology. 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 The [facility] pulmonology team also recommended ruling out [...] her which was previously recommended by the [facility] pulmonology service. Nevertheless, the patient adamantly [...] I had a conversation with the patient's financial advisor (Dr. Fernandez). During the conversation, we discussed [...] discussion patient was agreeable to go to [facility] for further evaluation and treatment and the [...] lobular carcinoma in situ (LCIS) 03/06/2019 Current Treatment and Therapy Plans No current plan information found. Past Treatment and Therapy Plans No past plan information found. Lifetime Dose Tracking * Chemical Lifetime Dose Automatic Entry Manual Entr y Fluoro Time 0.75 minutes 0.75 minutes 0 minutes Air Kerma 0.84 mGy 0.84 mGy 0 mGy Dose Area Product 0.1 mGy-cm2 0.1 mGy-cm2 0 mGy-cm2 Resolved Problems Problem Noted Date Diagnosed Date Resolved Date Acute on chronic diastolic C HF (congestive heart failure) ([facility] V24, CMS/[facility] V28) 08/10/2024 08/14/2024 Endometrial thickening on ultrasound 06/10/2024 06/24/2024 Aortic valve disorder 02/19/20212023 Atherosclerosis of aorta ([facility] V24) 05/06/2013 02/03/2024 Overview (02/03/2024): Update 09/28/2019 CT: Severe vascular calcification but no aneurysm.
--- OUTSIDE RECORDS SUMMARY | 2025-01-11 15:39 | XMS_ITS | Encounter Summary ---
Author Organization [facility] Address [address] [place] [address] Care Team Providers Care Hardware Engineer Name Role Phone Emma Lanza MD Primary Care Provider + [phone] Encounter Details Date Type Department Care Team (Latest Contact Info) Description 11/24/2024 Lab Requisition [facility] - Main Lab 299 [facility] [place] [address] Orlando Clement MD [address] [address] Encounter for gynecological examination (general) (routine) without abnormal findings Social History Tobacco Use Types Packs/Day Years [...] for your loved ones. For example, child daycare worker or elderly care for an older [...] Description 04/26/2025 11:00 AM EDT Office Visit [facility] Hematology Oncology [address] [place] [phone] Lauri Lovett MD [address] [place] [phone] 05/01/2025 10:30 AM EDT Office Visit Vascular Surgery - [place] [address] [place] [phone] Duke Alanis MD [address] [place] [phone] 06/07/2025 11:00 AM EDT Office Visit Gastroenterology - 299 [facility] 299 [facility] [address] [place] [phone] Max Carvajal MD 299 [facility] [address] [place] [address] documented as of this encounter Procedures Procedure Name Priority Date/Time Associated Diagnosis Comments PAP SMEAR Routine 11/23/2024 12:00 AM EDT Encounter for gynecological examination (general) (routine) without abnormal findings documented in this encounter Results * Pap smear (11/23/2024 12:00 AM EDT) Interpretation Unsatisfactory for evaluation/Unsuc cessful Attempt 12/06/2024 8:03 AM EDT [facility] at 0803 EDT General Categorization Other, see interpretation 12/06/2024 8:03 AM EDT [facility] Specimen Adequacy Obscuring inflammation 12/06/2024 8:03 AM EDT [facility] Pap Methodology Liquid Based Pap Test 12/06/2024 8:03 AM EDT [facility] Disclaimer The Pap test is a screening test which carries an inherent false negative rate. These test results should be correlated with the patient's clinical findings and history. This Pap test was processed using an automated screening system. Technical cytopathology services provided by [facility], at [address] [place] [address] (CLIA # [id number]/Olayinka Salvador MD, Ctc Operator.) 12/06/2024 8:03 AM EDT [facility] Console Pap Interpretation Reported 12/06/2024 8:03 AM EDT [facility] Brushing/Spatula Cervix uteri structure / Unknown 11/23/2024 11/24/2024 7:27 AM EDT us Orlando Clement MD LAB CYTOLOGY ORDERABLES Final Result [facility] [address] [place] [address], documented in this encounter Visit Diagnoses Diagnosis Encounter for gynecological examination (general) (routine) without abnormal findings documented in this encounter Care Teams Hardware Engineer Relationship Specialty Start Date End Date Emma Lanza MD [address] [place] [address] PCP - General Internal Medicine 10/11/21 documented as of this encounter
--- OUTSIDE RECORDS SUMMARY | 2025-01-11 15:39 | XMS_ITS | Encounter Summary ---
Author Organization [facility] Address [address] [place] [address] Care Team Providers Care Port Drier Name Role Phone Emma Lanza MD Primary Care Provider + [phone] Encounter Details Date Type Department Care Team (Late st Contact Info) Description 12/22/2024 Lab Requisition [facility] - Main Lab [address] [facility] [place] [address] Oleksandr Worthy MD [address] [place] [address] Hypo-osmolality and hyponatremia Social History Tobacco Use Types Packs/Day Years [...] care for your loved ones. For example, childbirth educator or elderly care for an older adult? [...] Description 04/26/2025 11:00 AM EDT Office Visit [facility] Hematology Oncology [address] [place] [phone] Lauri Lovett MD [address] [place] [phone] 05/01/2025 10:30 AM EDT Office Visit Vascular Surgery - [place] [address] [place] [phone] Duke Alanis MD [address] [place] [phone] 06/07/2025 11:00 AM EDT Office Visit Gastroenterology - 299 [facility] [address] [facility] [address] [place] [phone] Max Carvajal MD [address] [facility] [address] [place] [address] documented as of this encounter Procedures Procedure Name Priority Date/Time Associated Diagnosis Comments COMPLETE BLOOD COUNT Routine 12/22/2024 6:52 AM EST Hypo-osmolality and hyponatremia BASIC METABOLIC PANEL Routine 12/22/2024 6:52 AM EST Hypo-osmolality and hyponatremia documented in this encounter Results * (ABNORMAL) Basic metabolic panel (12/22/2024 6:52 AM EST) Sodium 125(L) 133 - 145 mmol/L LAB CHEMISTRY METHOD 12/22/2024 9:10 AM EST [facility] Potassium 3.6 3.5 - 5.5 mmol/L LAB CHEMISTRY METHOD 12/22/2024 9:10 AM EST [facility] Chloride 92(L) 96 - 110 mmol/L LAB CHEMISTRY METHOD 12/22/2024 9:10 AM EST [facility] CO2 25 21 - 32 mmol/L LAB CHEMISTRY METHOD 12/22/2024 9:10 AM [facility] Anion Gap 8 3 - 11 LAB CHEMISTRY METHOD 12/22/2024 9:10 AM [facility] Glucose 72 70 - 100 mg/dL LAB CHEMISTRY METHOD 12/22/2024 9:10 AM [facility] BUN 33(H) 5 - 25 mg/dL LAB CHEMISTRY METHOD 12/22/2024 9:10 AM [facility] Creatinine 1.90(H) 0.50 - 1.10 mg/dL LAB CHEMISTRY METHOD 12/22/2024 9:10 AM [facility] eGFR 27(L) >=60 mL/min/1. 73m2 LAB CHEMISTRY METHOD 12/22/2024 9:10 AM [facility] Comment:Calculation based on the Chronic Kidney Disease Epidemiology Collaboration (CKD-EPI) equation refit without adjustment for race. BUN/Creatinine Ratio 17.4 LAB CHEMISTRY METHOD 12/22/2024 9:10 AM [facility] Calcium 8.8 8.5 - 10.5 mg/dL LAB CHEMISTRY METHOD 12/22/2024 9:10 AM [facility] Blood Venous blood specimen / Unknown Venipuncture / Unknown 12/22/2024 6:52 AM EST 12/22/2024 8:13 AM EST Oleksandr Worthy MD LAB BLOOD ORDERABLES Final R esult [facility] [address] [place] [address], * (ABNORMAL) Complete blood count (12/22/2024 6:52 AM EST) WBC 6.0 4.8 - 10.8 K/[facility] LAB HEMETOLOGY METHOD 12/22/2024 8:44 AM [facility] RBC 2.70(L) 3.80 - 4.80 M/mcL LAB HEMETOLOGY METHOD 12/22/2024 8:44 AM [facility] Hemoglobin 8.6(L) 11.5 - 16.0 g/dL LAB HEMETOLOGY METHOD 12/22/2024 8:44 AM [facility] Hematocrit 24.5(L) 35.0 - 47.0 % LAB HEMETOLOGY METHOD 12/22/2024 8:44 AM [facility] MCV 91.1 79.0 - 98.0 FL LAB HEMETOLOGY METHOD 12/22/2024 8:44 AM [facility] MCH 32.0 27.0 - 32.0 pcg LAB HEMETOLOGY METHOD 12/22/2024 8:44 AM [facility] MCHC 35.1 32.0 - 37.0 g/dL LAB HEMETOLOGY METHOD 12/22/2024 8:44 AM [facility] RDW 13.8 11.0 - 15.0 % LAB HEMETOLOGY METHOD 12/22/2024 8:44 AM [facility] Platelets 188 130 - 400 K/mcL LAB HEMETOLOGY METHOD 12/22/2024 8:44 AM [facility] MPV 8.6 7.0 - 11.0 FL LAB HEMETOLOGY METHOD 12/22/2024 8:44 AM [facility] NRBC 0.0 <1.0 % LAB HEMETOLOGY METHOD 12/22/2024 8:44 AM [facility] NRBC Absolute 0.00 <0.10 K/mcL LAB HEMETOLOGY METHOD 12/22/2024 8:44 AM [facility] Blood Venous blood specimen / Unknown Venipuncture / Unknown 12/22/2024 6:52 AM EST 12/22/2024 8:13 AM EST Oleksandr Worthy MD LAB BLOOD ORDERABLES Final R esult [facility] [address] [place] [address], documented in this encounter Visit Diagnoses Diagnosis Hypo-osmolality and hyponatremia documented in this encounter Care Teams Port Drier Relationship Specialty Start Date End Date Emma Lanza MD [address] [place] [phone] PCP - General Internal Medicine 10/11/21 documented as of this encounter
--- OUTSIDE RECORDS SUMMARY | 2025-01-11 15:39 | XMS_ITS | Clinical Summary ---
Author Organization [facility] Address [address] [facility] [address] [place] [address] Phone Care Team Providers Care Support Staff Name Role Phone Emma Lanza MD Primary Care Provider Allergies Active Allergy Reactions Criticality Noted Date Comments Adhesive Tape Other (see comments) 08/13/2020 Adhesive bandage. Azithromycin Other (see comments) 08/13/2020 Coconut (Cocos Nucifera) Rash Low 02/19/2021 Coconut Flavoring Agent (Non-Screening) 02/19/2021 Codeine Other (see comments) 05/25/2020 Flurbiprofen 03/03/2019 Gabapentin Other (see comments) 11/04/2023 Iodinated Contrast Media 06/18/2022 Latex Rash Low 03/03/2019 Nsaids Other (see comments) 05/25/2020 Penicillins Other (see comments) 05/25/2020 Sulfa Antibiotics Other (see comments) 05/26/19 21 Sulfate Other (see comments) Medium 03/03/2019 Vancomycin Other (see comments) 05/25/2020 Medications fluticasone [...] 10 doses 10 tablet 02/25/19 24 Active cyanocobalami n (VITAMIN B-12) 100 MCG tablet Take 100 mcg by mouth 1 (one) time each day 05/28/19 24 Active docusate sodium (COLACE) 50 MG capsule Take 100 mg by mouth in the morning and 100 mg in the evening. 2 tabs in the morning and 1 tab in the afternoon. Active torsemide (DEMADEX) 20 MG tablet TAKE 2 TABLETS (40MG) BY MOUTH 1 TIME EACH DAY. 180 tablet 3 07/05/19 25 Active Additional Information Patient taking differently: 40 mg Oral Daily, Reported on 11/16/2024 Magnesium Oxide -Mg Supplement 200 MG tablet TAKE 1 TABLET BY MOUTH 1 TIME EACH DAY. 90 tablet 3 09/21/19 25 Active Rytary 23.75-95 MG capsule controlled-re lease Take 95 mg by mouth in the morning and 95 mg at noon and 95 mg in the evening. 11/07/19 25 Active allopurinol (ZYLOPRIM) 100 MG tablet TAKE 2 TABLETS BY MOUTH 1 TIME EACH DAY. 180 tablet 3 12/29/19 25 Active allopurinol (ZYLOPRIM) 100 MG tablet Take 2 tablets (200 mg total) by mouth 1 (one) time each day 180 tablet 3 11/04/19 24 025 Discontinued Active Problems Problem Noted [...] I had a conversation with the patient's service center assistant (Dr. Fernandez). During the conversation, we discussed [...] of nonsustained ventricular tachycardia during hospitalization at [facility] in September 2019. At that time, [...] side> 09/17 Atherosclerotic heart diseas e of [place] coronary artery without angina pectoris, not otherwise [...] Encounters Date Type Department Care Team Description 12/28/2024 Refill [facility] [address] [phone] Jd Fernandez MD 11/16/2024 10:00 AM EDT Office Visit [facility] [address] [phone] Jd Fernandez MD Chronic kidney disease, stage 4 (severe) (HCC) (Primary Dx); Anemia of chronic disease; Other acute kidney failure (HCC); Gout, not otherwise specified; H/O: ileostomy (HCC); Heart failure with normal ejection fraction (HCC); Hyperkalemia; Hypertension; Hypomagnesemia; Localized edema; Lymphedema; Other specified renal tubulo-interstitial disease; Vitamin D deficiency, not otherwise specified; Ulcerative colitis with complication, not otherwise specified (HCC) 11/10/2024 Orders Only [facility] [address] [address] Jd Fernandez MD Chronic kidney disease, stage 4 (severe) (HCC); Other acute kidney failure (HCC); Anemia of chronic disease; Aortic valve disorder; Atherosclerotic heart disease of [place] coronary artery without angina pectoris, not otherwise specified; Gout, not otherwise specified; H/O: ileostomy (HCC); Hypercalcemia; Hypertension; Hypomagnesemia; Localized edema; Other specified renal tubulo-interstitial disease; Vitamin D deficiency, not otherwise specified; Iron deficiency anemia, not otherwise specified; Hyperkalemia from Last 3 Months Immunizations Immunization Administration [...] Sign Reading Time Taken Comments Blood Pressure 124/56 11/16/2024 9:45 AM EDT Pulse 59 11/16/2024 9:45 AM EDT Temperature - - Respiratory Rate - - Oxygen Saturation 96% 11/16/2024 9:45 AM EDT Inhaled Oxygen Concentration - - Weight 103 kg (227 lb) 11/16/2024 9:45 AM EDT Height 157.5 cm (5' 2 ) 07/01/2023 9:02 AM EDT Body Mass Index 41.52 07/01/2023 9:02 AM EDT Plan of Treatment Upcoming Encounters Date Type Department Care Team (Late st Contact Info) Description 02/22/2025 9:40 AM EST Office Visit [facility] [address] [address] Jd Fernandez MD [address] [address] Health Maintenance Due Date Last Done Comments [...] Comments PROTEIN / CREATININE RATIO, URINE Routine 11/10/2024 11:08 AM EDT Chronic kidney disease, stage 4 (severe) (HCC) Other acute kidney failure (HCC) Anemia of chronic disease Aortic valve disorder Atherosclerotic heart disease of [place] coronary artery without angina pectoris, not otherwise specified Gout, not otherwise specified H/O: ileostomy (HCC) Hypercalcemia Hypertension Hypomagnesemia Localized edema Other specified renal tubulo-interstitia l disease Vitamin D deficiency, not otherwise specified Iron deficiency anemia, not otherwise specified Hyperkalemia CBC AND DIFFERENTIAL Routine 11/10/2024 11:08 AM EDT Chronic kidney disease, stage 4 (severe) (HCC) Other acute kidney failure (HCC) Anemia of chronic disease Aortic valve disorder Atherosclerotic heart disease of [place] coronary artery without angina pectoris, not otherwise specified Gout, not otherwise specified H/O: ileostomy (HCC) Hypercalcemia Hypertension Hypomagnesemia Localized edema Other specified renal tubulo-interstitia l disease Vitamin D deficiency, not otherwise specified Iron deficiency anemia, not otherwise specified Hyperkalemia VITAMIN D 25 HYDROXY Routine 11/10/2024 11:08 AM EDT Chronic kidney disease, stage 4 (severe) (HCC) Other acute kidney failure (HCC) Anemia of chronic disease Aortic valve disorder Atherosclerotic heart disease of [place] coronary artery without angina pectoris, not otherwise specified Gout, not otherwise specified H/O: ileostomy (HCC) Hypercalcemia Hypertension Hypomagnesemia Localized edema Other specified renal tubulo-interstitia l disease Vitamin D deficiency, not otherwise specified Iron deficiency anemia, not otherwise specified Hyperkalemia PTH, INTACT Routine 11/10/2024 11:08 AM EDT Chronic kidney disease, stage 4 (severe) (HCC) Other acute kidney failure (HCC) Anemia of chronic disease Aortic valve disorder Atherosclerotic heart disease of [place] coronary artery without angina pectoris, not otherwise specified Gout, not otherwise specified H/O: ileostomy (HCC) Hypercalcemia Hypertension Hypomagnesemia Localized edema Other specified renal tubulo-interstitia l disease Vitamin D deficiency, not otherwise specified Iron deficiency anemia, not otherwise specified Hyperkalemia PHOSPHATE ( PHOSPHORUS) Routine 11/10/2024 11:08 AM EDT Chronic kidney disease, stage 4 (severe) (HCC) Other acute kidney failure (HCC) Anemia of chronic disease Aortic valve disorder Atherosclerotic heart disease of [place] coronary artery without angina pectoris, not otherwise specified Gout, not otherwise specified H/O: ileostomy (HCC) Hypercalcemia Hypertension Hypomagnesemia Localized edema Other specified renal tubulo-interstitia l disease Vitamin D deficiency, not otherwise specified Iron deficiency anemia, not otherwise specified Hyperkalemia MAGNESIUM Routine 11/10/2024 11:08 AM EDT Chronic kidney disease, stage 4 (severe) (HCC) Other acute kidney failure (HCC) Anemia of chronic disease Aortic valve disorder Atherosclerotic heart disease of [place] coronary artery without angina pectoris, not otherwise specified Gout, not otherwise specified H/O: ileostomy (HCC) Hypercalcemia Hypertension Hypomagnesemia Localized edema Other specified renal tubulo-interstitia l disease Vitamin D deficiency, not otherwise specified Iron deficiency anemia, not otherwise specified Hyperkalemia URIC ACID Routine 11/10/2024 11:08 AM EDT Chronic kidney disease, stage 4 (severe) (HCC) Other acute kidney failure (HCC) Anemia of chronic disease Aortic valve disorder Atherosclerotic heart disease of [place] coronary artery without angina pectoris, not otherwise specified Gout, not otherwise specified H/O: ileostomy (HCC) Hypercalcemia Hypertension Hypomagnesemia Localized edema Other specified renal tubulo-interstitia l disease Vitamin D deficiency, not otherwise specified Iron deficiency anemia, not otherwise specified Hyperkalemia COMPREHENSIVE METABOLIC PANEL Routine 11/10/2024 11:08 AM EDT Chronic kidney disease, stage 4 (severe) (HCC) Other acute kidney failure (HCC) Anemia of chronic disease Aortic valve disorder Atherosclerotic heart disease of [place] coronary artery without angina pectoris, not otherwise specified Gout, not otherwise specified H/O: ileostomy (HCC) Hypercalcemia Hypertension Hypomagnesemia Localized edema Other specified renal tubulo-interstitia l disease Vitamin D deficiency, not otherwise specified Iron deficiency anemia, not otherwise specified Hyperkalemia from Last 3 Months Results * (ABNORMAL) Protein, Total, Random Urine w/Creatinine (Protein/Creat Ratio) (11/10/2024 11:08 AM EDT) Creatinine, Ur 50.9 Not Estab. mg/dL [facility] Protein, Ur 14.5 Not Estab. mg/dL [facility] Urine Protein/Creati nine Ratio 285(H) 0 - 200 mg/g creat [facility] Urine Urine specimen obtained by clean catch procedure / Unknown 11/10/2024 11:08 AM EDT 11/10/2024 us Jd Fernandez MD LAB URINE ORDERABLES Final Re sult [facility] [address] [place] [address] * (ABNORMAL) Vitamin D 25 Hydroxy (11/10/2024 11:08 AM EDT) Vitamin D, 25-OH, Total 27.9(L) 30.0 - 100.0 ng/mL [facility] Comment: Vitamin D deficiency has been defined by the [place]ug[place] of Medicine and an Endocrine Society practice guideline as a level of serum 25-OH vitamin D less than 20 ng/mL (1,2). The Endocrine Society went on to further define vitamin D insufficiency as a level between 21 and 29 ng/mL (2). 1. IOM ([place] of Medicine). 2010. Dietary reference intakes for calcium and D. [place]: The National Academies Press. 2. Cm MF, Jaswant NC, Johanna MOLINA, et al. Evaluation, treatment, and prevention of vitamin D deficiency: an Endocrine Society clinical practice guideline. JCEM. 2010; 96(7):1911-30. Blood Venous blood / Unknown 11/10/2024 11:08 AM EDT 11/10/2024 us Jd Fernandez MD LAB BLOOD ORDERABLES Final Re sult [facility] [address] [place] [address] * (ABNORMAL) CBC and Differential (11/10/2024 11:08 AM EDT) WBC 7.2 3.4 - 10.8 x10E3/uL [facility] RBC 2.95(L) 3.77 - 5.28 x10E6/uL [facility] Hemoglobin 9.5(L) 11.1 - 15.9 g/dL [facility] Hematocrit 30.0(L) 34.0 - 46.6 % [facility] MCV 102(H) 79 - 97 fL [facility] MCH 32.2 26.6 - 33.0 pg [facility] MCHC 31.7 31.5 - 35.7 g/dL [facility] RDW 15.6(H) 11.7 - 15.4 % [facility] Platelets 199 150 - 450 x10E3/uL [facility] Neutrophils Relative 75 Not Estab. % [facility] Lymphocytes Relative 13 Not Estab. % [facility] Monocytes 7 Not Estab. % [facility] Eosinophils Relative 4 Not Estab. % [facility] Basophils Relative 1 Not Estab. % [facility] Neutrophils Absolute 5.5 1.4 - 7.0 x10E3/uL [facility] Lymphocytes Absolute 0.9 0.7 - 3.1 x10E3/uL [facility] Monocytes Absolute 0.5 0.1 - 0.9 x10E3/uL [facility] Eosinophils Absolute 0.3 0.0 - 0.4 x10E3/uL [facility] Basophils Absolute 0.1 0.0 - 0.2 x10E3/uL [facility] Immature Granulocytes 0 Not Estab. % [facility] Immature Grans (Absolute) 0.0 0.0 - 0.1 x10E3/uL [facility] Blood Venous blood / Unknown 11/10/2024 11:08 AM EDT 11/10/2024 Jd Fernandez MD LAB BLOOD ORDERABLES Final Re sult Performing Organization Address City/[facility]/ZIP Co de Phone Number [facility] [address] [place] [address] * Uric Acid (11/10/2024 11:08 AM EDT) Uric Acid 6.2 3.1 - 7.9 mg/dL [facility] Comment:Therapeutic target f or gout patients: <6.0 Blood Venous blood / Unknown 11/10/2024 11:08 AM EDT 11/10/2024 Jd Fernandez MD LAB BLOOD ORDERABLES Final Re sult [facility] [address] [place] [address] * (ABNORMAL) Phosphorus (11/10/2024 11:08 AM EDT) Phosphorus 4.5(H) 3.0 - 4.3 mg/dL [facility] Blood Venous blood / Unknown 11/10/2024 11:08 AM EDT 11/10/2024 us Jd Fernandez MD LAB BLOOD ORDERABLES Final Re sult Performing Organization Address [facility] Co de Phone Number [facility] [address] [place] [address] * (ABNORMAL) PTH, Intact (11/10/2024 11:08 AM EDT) PTH 149(H) 15 - 65 pg/mL [facility] Blood Venous blood / Unknown 11/10/2024 11:08 AM EDT 11/10/2024 us Jd Fernandez MD LAB BLOOD ORDERABLES Final Re sult Performing Organization Address [facility] de Phone Number [facility] [address] [place] [address] * Magnesium (11/10/2024 11:08 AM EDT) Magnesium 2.0 1.6 - 2.3 mg/dL [facility] Blood Venous blood / Unknown 11/10/2024 11:08 AM EDT 11/10/2024 us Jd Fernandez MD LAB BLOOD ORDERABLES Final Re sult Performing Organization Address [facility] Co de Phone Number [facility] [address] [place] [address] * (ABNORMAL) Comprehensive Metabolic Panel (11/10/2024 11:08 AM EDT) Glucose 84 70 - 99 mg/dL [facility] BUN 57(H) 8 - 27 mg/dL [facility] Creatinine 2.83(H) 0.57 - 1.00 mg/dL [facility] eGFR CKD-EPI CR 2020 17(L) >59 mL/min/1.7 3 [facility] BUN/Creatinine Ratio 20 12 - 28 [facility] Sodium 134 134 - 144 mmol/L [facility] Potassium 4.4 3.5 - 5.2 mmol/L [facility] Chloride 98 96 - 106 mmol/L [facility] Bicarbonate (CO2) 15(L) 20 - 29 mmol/L [facility] Calcium 9.3 8.7 - 10.3 mg/dL [facility] Total Protein 6.6 6.0 - 8.5 g/dL [facility] Albumin 4.0 3.8 - 4.8 g/dL [facility] Globulin 2.6 1.5 - 4.5 g/dL [facility] Total Bilirubin 0.3 0.0 - 1.2 mg/dL [facility] Alkaline Phosphatase 185(H) 49 - 135 IU/L [facility] Comment:Please note refere nce interval change AST (SGOT) 16 0 - 40 IU/L [facility] ALT (SGPT) 5 0 - 32 IU/L [facility] Blood Venous blood / Unknown 11/10/2024 11:08 AM EDT 11/10/2024 us Jd Fernandez MD LAB BLOOD ORDERABLES Final Re s[facility] [address] [place] [address] from Last 3 Months Insurance Medicaid [place] Care Teams Support Staff Relationship Specialty Start Date End Date Emma Lanza MD [address] [place] [phone] PCP - General 02/27/20
--- OUTSIDE RECORDS SUMMARY | 2025-01-11 15:39 | XMS_ITS | Data Portability ---
Author Organization [place] - [facility] Address [address] [place] [id number] Care Team Providers Care Circuit Judge Name Role Phone ELODIA BORREGO Primary Care Provider [phone] Assessment Encounter Date Assessment Date Assessment LastModified [...] after care of this patient according to [facility] infection prevention protocols. Time On Scene with Patient: 00:51:12 [email or web address] Not available 11/24/2020 16:39:10 11/29/2020 11/29/2020 Time [...] issue as of yet nor contacting her practice administrator. She does not want to burden her [...] year in September. LBBB is not new. [place] interval normal and normal sinus at 73 [...] checked out as sxs are classic for MT -Initially she wasn't sure she wanted to go but I described a story of a family member of mine who ignored chest pain and SOB for a week and ended up diagnosed w/ MT and Herat Failure whose story reminds of this patients. Because of this patient is willing to go get checked out to ensure no further cardiac damage is done. -EKG also w/ some acute MT changes to inferior leads -EMS called and pt handed off to [facility] -Expect called to [facility] Pt is [...] I have accessed patient records on the [employer]. This information was pertinent in my medical decision making today. [email or web address] Not available 11/16/2021 18:27:52 Plan of Treatment Reminders Order Date Submit Date Provider Last Modified By Organization Details Last Modified Time Details Appointments None recorded. Lab BMP + ionized calcium, serum or plasma 2020 [facility], [address] [place], [address], 16:14:39 Referral None recorded. Procedures None recorded. Surgeries None recorded. Imaging US, duplex, venous, lower extremity, complete - Mobile indication: non-ambulat ory, documented pain 2020 [email or web address] [facility] [address], [place], [address], 17:07:55 XR, foot, 2 view - Mobile indication: non-ambulat ory, pain 2020 [facility]), [address], [place], [address], 10:14:22 Medication Orders Probiotic 10 billion cell capsule 2020 022 [facility] #0838, [address] [place], [address], 16:14:29 torsemide 20 mg tablet 2020 021 [email or web address] [facility]/Pharmacy #0838, [address] [place], [address], 16:15:08 potassium chloride ER 20 mEq tablet,exte nded release 2020 021 [facility] #0838, [address] [place], [address], 16:14:04 clindamycin HCl 300 mg capsule 2020 021 [email or web address] [facility]/Pharmacy #1119, [address] [place], [address], 15:04:48 Patient TargetsNo targets recorded. Patient Instructions Encounter Date Encounter Id Patient Instructions Last Modified By Organization Details Last Modified Time 11/24/2020 [id number] cellulitis: care instructions [email or web address] [id number] Not available 11/24/2020 16:04:02 will follow u p with you on Monday 11/27 Please take the medications as prescribed Seek medical attention in the ER if your symptoms get worse. If you have additional concerns or develop a change in your condition between 8am-10pm, please call [facility] at [phone] to help navigate your care. [email or web address] Not available 11/24/2020 16:09:43 11/29/2020 [id number] Please resume yo ur antibiotics STAT and [...] 2. FOLLOW UP WITH CARDIOLOGY AND RENAL DR. STAT, YOU HAVEN'T SEEN YOUR CARDIOLOGY DOCTOR [...] STAT. Thank you for your visit with [facility] today. You may have had laboratory [...] in your condition between 8am-10pm, please call [facility] at [phone] to help navigate your care. Thank you for your visit with [facility] today. You were seen today for treatment [...] in your condition between 8am-10pm, please [facility] at [phone] to help navigate your care. [email or web address] Not available 11/29/2020 09:08:22 Reason for Referral None Reported. Results Created Date Observation Date Name Description Value Unit Range Abnormal Flag Note LastModifiedBy Organization Detail LastModifiedTime 11/25/19 21 11/24/2020 BMP + IONIZ ED CALCI UM, SERUM OR PLASM A glu 139 mg/dL 70-105 Not Available [address] [place], [address], 11/24/2020 16:14:39 11/25/19 21 11/24/2020 BMP + IONIZ ED CALCI UM, SERUM OR PLASM A BUN 25 mg/dL 8-26 Not Available [facility] [address] [place], [address], 11/24/2020 16:14:39 11/25/19 21 11/24/2020 BMP + IONIZ ED CALCI UM, SERUM OR PLASM A crea 1.5 mg/dL 0.6-1. 3 Not Available [address], [address], 11/24/2020 16:14:39 11/25/19 21 11/24/2020 BMP + IONIZ ED CALCI UM, SERUM OR PLASM A Na 137 mmol/ L 138-14 6 Not Available [address], [address], 11/24/2020 16:14:39 11/25/19 21 11/24/2020 BMP + IONIZ ED CALCI UM, SERUM OR PLASM A K 3.8 mmol/ L 3.5-4. 9 Not Available [address], [address], 11/24/2020 16:14:39 11/25/19 21 11/24/2020 BMP + IONIZ ED CALCI UM, SERUM OR PLASM A cL 102 mmol/ L 98-109 Not Available [address], [address], 11/24/2020 16:14:39 11/25/19 21 11/24/2020 BMP + IONIZ ED CALCI UM, SERUM OR PLASM A TCO2 24 mmol/ L 24-29 Not Available [address], [address], 11/24/2020 16:14:39 11/25/19 21 11/24/2020 BMP + IONIZ ED CALCI UM, SERUM OR PLASM A angap 16 mmol/ L 10-20 Not Available [address], [address], 11/24/2020 16:14:39 11/25/19 21 11/24/2020 BMP + IONIZ ED CALCI UM, SERUM OR PLASM A ica 1.20 mmol/ L 1.12-1 .32 Not Available [address], [address], 11/24/2020 16:14:39 11/25/19 21 11/24/2020 BMP + IONIZ ED CALCI UM, SERUM OR PLASM A HCT 32 %pcv 38-51 Not Available [facility] [address] [place], [address], 11/24/2020 16:14:39 11/25/19 21 11/24/2020 BMP + IONIZ ED CALCI UM, SERUM OR PLASM A Hb 10.9 g/dL 12-17 Not Available [facility] [address] [place], [address], 11/24/2020 16:14:39 11/28/19 21 US, duple x, venou s, lower extre mity, compl ete No observ ation record ed. [email or web address] [facility] ([facility]) [address] [place], [address], 11/27/2020 19:39:45 11/30/19 21 XR, foot, 2 view No observ ation record ed. [email or web address] [facility] ([facility]) [address] [place], [address], 12/01/2020 12:15:47 11/26/19 22 elect rocar diogr am No observ ation record ed. [email or web address] Not Available 2021 14:37:38 Result Notes None recorded. Procedures Surgical History Date Name Laterality Status Provider Name and Address Organization Details Recorded Time Medication Review completed FRANCES Weaver [address], [place], [address], [place] [facility] 11/16/2021 16:16:16 ECG Interpretation - completed FRANCES Weaver [address], [place], [address], [place] [facility] 11/16/2021 18:18:00 Venipuncture - DH completed SAE RICHARDS NP [address], [place], [address], [place] [facility] 11/26/2020 16:36:00 examination of toe completed SAE RICHARDS NP [address], [place], [address], [place] [facility] 11/24/2020 15:45:41 lumpectomy of right breast completed SAE RICHARDS NP [address], [place], [address], [place] [facility] 11/24/2020 15:46:27 Colostomy completed SAE RICHARDS NP [address], [place], [address], [place] [facility] 11/24/2020 16:13:08 Imaging Results None recorded. Procedure Notes None recorded. Medical Equipment None Reported. Allergies Allergen ID Allergen Name Allergen Category Reaction Reaction Severity Criticality Documentation Date Start Date Code Code System Note Provider Name and Address Organization Details Recorded Time 802065 Product containin g penicilli n (product) medicatio n Not available Not available Not available 11/24/2020 52374 8001 SNOMED SAE RICHARSD NP [address] [place], [address], [place] [facility] 15:35:40 893669 Substance with sulfonami de structure and antibacte rial mechanism of action (substanc e) medicatio n Not available Not available Not available 11/24/2020 59325 8003 SNOMED SAE RICHARDS NP [address] [place], [address], [place] [facility] 15:35:45 949437 vancomyci n medicatio n Not available Not available Not available 11/24/2020 36869 RxNorm SAE RICHARDS NP [address] [place], [address], [place] [facility] 15:35:50 219830 codeine medicatio n Not available Not available Not available 11/24/2020 2670 RxNorm SAE RICHARDS NP [address] [place], [address], [place] [facility] 1 15:35:56 594945 Non-stero idal anti-infl ammatory agent (substanc e) medicatio n Not available Not available Not available 11/16/2021 27352 5008 SNOMED FRANCES Hodgson [address] [place], [address], [place] [facility] 2 16:02:30 663920 coconut extract food,medi cation Not available Not available Not available 11/16/2021 03147 48 RxNorm FRANCES Hodgson [address] [place], [address], [place] [facility] 2 16:02:38 018765 Iodinated contrast media (substanc e) medicatio n Not available Not available Not available 11/16/2021 16221 2004 SNOMED FRANCES Hodgson [address] [place], [address], [place] [facility] 2 16:08:27 419479 adhesive tape environme nt,medica tion Not available Not available Not available 11/16/2021 FRANCES Hodgson [address] [place], [address], [place] [facility] 2 16:08:38 950639 azithromy grace medicatio n Not available Not available Not available 11/16/2021 65941 RxNorm FRANCES Hodgson [address] [place], [address], [place] [facility] 2 16:08:46 Medications [...] MOUTH 2 TIMES DAILY FOR 180 DAYS. 10/01 /2022 completed Not Available Not Available Not Available [...] BY MOUTH DAILY NEEDED ( [facility]) 11/16 completed Not Available Not [...] t Available diclofenac 1 % topical gel 11/24 completed Not Available Not Available Not [...] Not Available Not Available Vitals Date Recorded Heart rate Respiratory rate Body temperature Oxygen saturation Systolic And Diastolic Provider Name and Address Organization Details Last Updated DateTime 2 75 /min 20 /min 97.4 [degF] 97 % 112/64 mm[Hg] Not Available [facility] 15:10:44 Date Recorded Oxygen saturation Heart rate Body temperature Respiratory rate Systolic And Diastolic Provider Name and Address Organization Details Last Updated DateTime 1 98 % 78 /min 96.6 [degF] 20 /min 114/72 mm[Hg] Not Available [facility] 15:41:44 Date Recorded Oxygen saturation Heart rate Body temperature Respiratory rate Systolic And Diastolic Provider Name and Address Organization Details Last Updated DateTime 1 96 % 71 /min 97.3 [degF] 22 /min 142/74 mm[Hg] Not Available [facility] 08:52:33 Social History Question Answer Notes LastModified by Organizat ion Details LastModified Time Tobacco Smoking Status Never Smoker SAE RICHARDS NP [address], [place], [address], [place] [facility] 11/24/2020 15:43:25 Do You Have An Advance Directive? No [email or web address] Information not available 11/24/2020 What Is Your Code Status? Full Code [email or web address] Information not available 11/24/2020 Within The Past 12 Months, Has It Happened That The Food You Bought Just Didn't Last And You Didn't Have Money To Get More. No [email or web address] Information not available 11/24/2020 Within The Past 12 Months, Have You Worried That Your Food Would Run Out Before You Got Money To Buy More. No [email or web address] Information not available 11/24/2020 Fall Risk: Do You Feel Unsteady When Standing Or Walking? Yes [email or web address] Information not available 11/24/2020 We Know That How And When People Interact With Friends And Family Can Be Very Different From Person To Person. How Often Do You Have The Opportunity To See Or Talk To People That You Care About And Feel Close To? (Ex: Talking To Friends On The Phone Or Visiting Friends Or Family Or Going To Jewish Or Club Meetings) 5 Or More Times Per Week [email or web address] Information not available 11/24/2020 Excessive Alcohol Or Drug Use No [email or web address] Information not available 11/24/2020 Does This Patient Have A PCP? Yes [email or web address] Information not available 11/24/2020 We Know From Many Of Our Patients That Covering All Of Their Costs Can Be Difficult At Times. This Can Cause Stress And Impact Health. In The Past Year, Have You Been Unable To Get Any Of The Following When It Was Really Needed? No [email or web address] Information not available 11/24/2020 What Is Your Housing Situation Today? I Have Housing Today But I Am Worried About Losing Housing In The Future) [email or web address] Information not available 11/24/2020 Would You Like Help Connecting To Resources? Housing [email or web address] Information not available 11/24/2020 Sex: Unknown Functional Status Question Answer Note LastModified by Organizat ion Details LastModified Time Do you use any illicit or recreational drugs? No [email or web address] Information not available 11/24/2020 Do you or have you ever used any other forms of tobacco or nicotine? No [email or web address] Information not available 11/24/2020 What is your level of alcohol consumption? None [email or web address] Information not available 11/24/2020 Mental Status None recorded. Family History Relationship Description Onset Age of this Age Resolved Age Notes LastModified by Organization Details LastModified Time Father Myocardial infarction [email or web address] Not available 1 15:41:03 Mother Malignant neoplastic disease breast and colon [email or web address] Not available 11/24/2020 15:42:39 Maternal Aunt Malignant neoplastic disease [email or web address] Not available 15:42:44 Maternal Uncle Malignant neoplastic disease [email or web address] Not available 15:42:52 Brother Malignant neoplastic disease brain coco Not available 15:43:01 Medical History Condition Response Diabetes N Coronary Artery Disease N Cancer Y Stroke N Asthma N COPD N Depression Y High Cholesterol Y Pulmonary Embolism N Hypertension Y Kidney Disease Y Gynecological HistoryNo gynecological history recorded. Obstetrics History GPAL:G 0 P 0 0 0 0 Past Encounters Encounter ID Performer Location Encounter Start Date Encounter Closed Date Diagnosis/Indication Diagnosis SNOMED-CT Code Diagnosis ICD10 Code Diagnosis IMO Codes Diagnosis Note [id number] SAE RICHARDS NP [facility] [address] [place] [address] 11/24/2020 15:26:27 11/24/2020 16:40:44 Cellulitis of toe of right foot [id number] 5205921 L03.031 Swelling o f bilateral lower limbs 188087220 M79.89 [id number] Savanna Ortiz NP [facility] [address] [place] [address] 11/29/2020 08:48:26 11/29/2020 11:25:38 Wound cellulitis 694387225 L03.90 Overview/H istory: Patient is a 75 [...] follow up and has not contacted her [facility] s/p visit where she was prescribed increased [...] encouraged her to contact Insurance and local [facility] for assist which she agrees to do ROSLYN. Proper Personal Protective Equipment (PPE), including gloves, eye protection , N95 mask, gown, and shoe covers were donned and doffed approprparviz do and all equipment cleaned using approved technique with germicidal disposable wipes prior to and after care of this patient according to [facility]'s infection prevention protocols. In order to obtain further informatio n and compare any laboratory results/va lues, I have accessed old patient records. This informatio n was pertinent in my medical decision making today. [id number] FRANCES Gerber [facility] [place] [address] [address] 11/16/2021 14:49:27 11/16/2021 18:35:54 Acute coronary syndrome 780206992 I24.9 Health Concerns Section Related Observation LastModified by Organization Detai ls LastModified Time None Recorded Concern Status LastModified by Organization Details LastModified Time None Recorded Advance Directives Directive N: Payers Insurance Date Sequence Insurance Name Policy Number Policy Leal Covered Member ID Leal Member ID Guarantor Name 11/25/2020 1 [facility] MEDICARE PREFERRED (MEDICARE REPLACEMENT HMO) SCOIND Sada Murcia [id number] Sada Murcia 11/25/2020 1 *SELF PAY* Sada Murcia [id number] Sada Murcia 11/25/2020 1 [facility] MEDICARE PREFERRED (MEDICARE REPLACEMENT HMO) SCOIND Sada Murcia [id number] Sada Murcia 11/22/2021 1 [facility] - MEDICARE PREFERRED (MEDICARE REPLACEMENT HMO) SCOIND Sada Murcia [id number] Sada Murcia Notes Date Note Type [...] from a recent toe surgery (elective.) SAE RICHARDS NP [address], [place], [address], [place] [facility] 11/26/2020 16:36:08 11/29/2020 text/html General HPI Template - DHReported by Patient Patient is a 75 year old alert [...] III kidney disease. Savanna Ortiz NP [address], [place], [address], [place] [facility] 11/29/2020 09:39:42 11/16/2021 text/html 76 YO F [facility] provider [facility], HLD, Breast Ca, [...] issue as of yet nor contacting her practice administrator. She does not want to burden her kids any further she states as her is on hospice and this is new as of 1 month ago. Otherwise she denies any otehr sxs ie fever, cough, numbness/tingling . FRANCES Waever [address], [place], [address], [place] [facility] 11/16/2021 18:28:04 OBGyn Episode No OBEpisode recorded.
--- OUTSIDE RECORDS SUMMARY | 2025-01-11 15:39 | XMS_ITS | Encounter Summary ---
Author Organization [facility] Address [address] [place] [address] Care Team Providers Care Account Services Associate Name Role Phone Emma Lanza MD Primary Care Provider + [phone] Encounter Details Date Type Department Care Team (Late st Contact Info) Description 12/05/2024 Lab Requisition [facility] - Main Lab [address] [facility] [facility] [facility] [place] [address] Oleksandr Worthy MD [address] [place] [address] Acute kidney failure, unspecified (CMS/HCC V24) Social History Tobacco Use Types Packs/Day Years [...] your loved ones. For example, child care sitter or elderly care for an older adult? [...] 04/26/2025 11:00 AM EDT Office Visit [facility] Hematology Oncology [address] [place] [phone] Lauri Lovett MD [address] [place] [phone] 05/01/2025 10:30 AM EDT Office Visit Vascular Surgery - [place] [address] [place] [phone] Duke Alanis MD [address] [place] [phone] 06/07/2025 11:00 AM EDT Office Visit Gastroenterology - 299 [facility] 299 [facility] [address] [place] [phone] Max Carvajal MD 299 [facility] [address] [place] [address] documented as of this encounter Procedures Procedure Name Priority Date/Time Associated Diagnosis Comments CBC WITH AUTO DIFFERENTIAL Routine 12/05/2024 8:45 AM EDT Acute kidney failure, unspecified ([facility] V24) CBC AND DIFFERENTIAL Routine 12/05/2024 8:45 AM EDT Acute kidney failure, unspecified ([facility] V24) BASIC METABOLIC PANEL Routine 12/05/2024 8:45 AM EDT Acute kidney failure, unspecified ([facility] V24) documented in this encounter Results * (ABNORMAL) CBC auto differential (12/05/2024 8:45 AM EDT) [facility] WBC 9.3 4.8 - 10.8 [facility] LAB HEMETOLOGY METHOD 12/05/2024 10:55 AM EDT [facility] ([facility]) [facility] LAB RBC 3.10(L) 3.80 - 4.80 M/[facility] LAB HEMETOLOGY METHOD 12/05/2024 10:55 AM T [facility] LAB Hemoglobin 9.9(L) 11.5 - 16.0 g/dL LAB HEMETOLOGY METHOD 12/05/2024 10:[address] [facility] LAB Hematocrit 29.9(L) 35.0 - 47.0 % LAB HEMETOLOGY METHOD 12/05/2024 10:[address] [facility] LAB MCV 95.8 79.0 - 98.0 FL LAB HEMETOLOGY METHOD 12/05/2024 10:[address] [facility] LAB MCH 31.7 27.0 - 32.0 pcg LAB HEMETOLOGY METHOD 12/05/2024 10:[address] [facility] LAB MCHC 33.1 32.0 - 37.0 g/dL LAB HEMETOLOGY METHOD 12/05/2024 10:[address] [facility] LAB RDW 15.7(H) 11.0 - 15.0 % LAB HEMETOLOGY METHOD 12/05/2024 10:[address] [facility] LAB Platelets 198 130 - 400 K/mcL LAB HEMETOLOGY METHOD 12/05/2024 10:[address] [facility] LAB MPV 9.6 7.0 - 11.0 FL LAB HEMETOLOGY METHOD 12/05/2024 10:[address] [facility] LAB NRBC 0.0 <1.0 % LAB HEMETOLOGY METHOD 12/05/2024 10:[address] [facility] LAB NRBC Absolute 0.00 <0.10 K/mcL LAB HEMETOLOGY METHOD 12/05/2024 10:[address] [facility] Neutrophils Relative 76.5 % LAB HEMETOLOGY METHOD 12/05/2024 10:[address] [facility] Lymphocytes Relative 10.5 % LAB HEMETOLOGY METHOD 12/05/2024 10:[address] [facility] Monocytes Relative 7.5 % LAB HEMETOLOGY METHOD 12/05/2024 10:[address] [facility] Eosinophils Relative 4.5 % LAB HEMETOLOGY METHOD 12/05/2024 10:[address] [facility] Basophils Relative 0.5 % LAB HEMETOLOGY METHOD 12/05/2024 10:[address] [facility] Immature Granulocytes Relative 0.5 % LAB HEMETOLOGY METHOD 12/05/2024 10:[address] [facility] Neutrophils Absolute 7.09(H) 1.50 - 7.00 K/mcL LAB HEMETOLOGY METHOD 12/05/2024 10:[address] [facility] Lymphocytes Absolute 0.98(L) 1.00 - 5.00 K/mcL LAB HEMETOLOGY METHOD 12/05/2024 10:[address] [facility] Monocytes Absolute 0.70 0.20 - 1.00 K/mcL LAB HEMETOLOGY METHOD 12/05/2024 10:[address] [facility] Eosinophils Absolute 0.42 0.00 - 0.50 K/mcL LAB HEMETOLOGY METHOD 12/05/2024 10:[address] [facility] Basophils Absolute 0.05 0.00 - 0.20 K/mcL LAB HEMETOLOGY METHOD 12/05/2024 10:[address] [facility] Immature Granulocytes Absolute 0.05(H) 0.00 - 0.03 K/mcL LAB HEMETOLOGY METHOD 12/05/2024 10:[address] [facility] Blood Venous blood specimen / Unknown Venipuncture / Unknown 12/05/2024 8:45 AM EDT 12/05/2024 9:50 AM EDT Oleksandr Worthy MD LAB BLOOD ORDERABLES Final R esult [facility] [address] [place] [address], * (ABNORMAL) Basic metabolic panel (12/05/2024 8:45 AM EDT) Sodium 134 133 - 145 mmol/L LAB CHEMISTRY METHOD 12/05/2024 11:15 AM T [facility] Potassium 3.8 3.5 - 5.5 mmol/L LAB CHEMISTRY METHOD 12/05/2024 11:[address] [facility] Chloride 102 96 - 110 mmol/L LAB CHEMISTRY METHOD 12/05/2024 11:[address] [facility] CO2 20(L) 21 - 32 mmol/L LAB CHEMISTRY METHOD 12/05/2024 11:[address] [facility] Anion Gap 12(H) 3 - 11 LAB CHEMISTRY METHOD 12/05/2024 11:[address] [facility] Glucose 99 70 - 100 mg/dL LAB CHEMISTRY METHOD 12/05/2024 11:[address] [facility] BUN 72(H) 5 - 25 mg/dL LAB CHEMISTRY METHOD 12/05/2024 11:[address] [facility] Comment:Results verified by repeat testing Creatinine 3.28(H) 0.50 - 1.10 mg/dL LAB CHEMISTRY METHOD 12/05/2024 11:[address] [facility] eGFR 14(L) >=60 mL/min/1. 73m2 LAB CHEMISTRY METHOD 12/05/2024 11:[address] [facility] Comment:Calculation based on the Chronic Kidney Disease Epidemiology Collaboration (CKD-EPI) equation refit without adjustment for race. BUN/Creatinine Ratio 22.0 LAB CHEMISTRY METHOD 12/05/2024 11:[address] [facility] Calcium 9.7 8.5 - 10.5 mg/dL LAB CHEMISTRY METHOD 12/05/2024 11:15 AM EDT [facility] Blood Venous blood specimen / Unknown Venipuncture / Unknown 12/05/2024 8:45 AM EDT 12/05/2024 9:50 AM EDT us Oleksandr Worthy MD LAB BLOOD ORDERABLES Final R esult [facility] [address] [place] [address], documented in this encounter Visit Diagnoses Diagnosis Acute kidney failure, unspecified (CMS/HCC V24) Acute kidney failure, unspecified documented in this encounter Care Teams Account Services Associate Relationship Specialty Start Date End Date Emma Lanza MD [address] [place] [id number] PCP - General Internal Medicine 10/11/21 documented as of this encounter
--- OUTSIDE RECORDS SUMMARY | 2025-01-11 15:39 | XMS_ITS | Encounter Summary ---
Author Organization [employer] Address [address] [place] [address] Care Team Providers Care Curing Bin Operator Name Role Phone Emma Lanza MD Primary Care Provider + [phone] Encounter Details Date Type Department Care Team (Late st Contact Info) Description 12/08/2024 Lab Requisition [facility] - Main Lab [address] [place] [address] Oleksandr Worthy MD [address] [place] [address] Parkinson's disease without dyskinesia, without mention of fluctuations (CMS/HCC V24, CMS/HCC V28); Acute kidney failure, unspecified (CMS/HCC V24); Anemia, unspecified; Essential (primary) hypertension Social History [...] care for your loved ones. For example, childcare center director or elderly care for an older adult? [...] Description 04/26/2025 11:00 AM EDT Office Visit [facility] Hematology Oncology [address] [place] [phone] Lauri Lovett MD [address] [place] [phone] 05/01/2025 10:30 AM EDT Office Visit Vascular Surgery - [place] [address] [place] [phone] Duke Alanis MD [address] [place] [phone] 06/07/2025 11:00 AM EDT Office Visit Gastroenterology - [address] [facility] [address] [place] [address] Max Carvajal MD 299 [facility] [address] [place] [address] documented as of this encounter Procedures Procedure Name Priority Date/Time Associated Diagnosis Comments COMPLETE BLOOD COUNT Routine 12/08/2024 7:05 AM EDT Parkinson's disease without dyskinesia, without mention of fluctuations (CMS/HCC V24, CMS/HCC V28) Acute kidney failure, unspecified (CMS/HCC V24) Anemia, unspecified Essential (primary) hypertension BASIC METABOLIC PANEL Routine 12/08/2024 7:05 AM EDT Parkinson's disease without dyskinesia, without mention of fluctuations (CMS/HCC V24, CMS/HCC V28) Acute kidney failure, unspecified (CMS/HCC V24) Anemia, unspecified Essential (primary) hypertension documented in this encounter Results * (ABNORMAL) Basic metabolic panel (12/08/2024 7:05 AM EDT) Sodium 132(L) 133 - 145 mmol/L LAB CHEMISTRY METHOD 12/08/2024 10:39 AM [facility] LAB Potassium 3.3(L) 3.5 - 5.5 mmol/L LAB CHEMISTRY METHOD 12/08/2024 10:39 AM [facility] LAB Chloride 98 96 - 110 mmol/L LAB CHEMISTRY METHOD 12/08/2024 10:39 AM [facility] CO2 21 21 - 32 mmol/L LAB CHEMISTRY METHOD 12/08/2024 10:39 AM [facility] Anion Gap 13(H) 3 - 11 LAB CHEMISTRY METHOD 12/08/2024 10:39 AM [facility] LAB Glucose 97 70 - 100 mg/dL LAB CHEMISTRY METHOD 12/08/2024 10:39 AM [facility] BUN 91(H) 5 - 25 mg/dL LAB CHEMISTRY METHOD 12/08/2024 10:39 AM [facility] Creatinine 3.60(H) 0.50 - 1.10 mg/dL LAB CHEMISTRY METHOD 12/08/2024 10:39 AM [facility] LAB eGFR 12(L) >=60 mL/min/1. 73m2 LAB CHEMISTRY METHOD 12/08/2024 10:39 AM [facility] Comment:Calculation based on the Chronic Kidney Disease Epidemiology Collaboration (CKD-EPI) equation refit without adjustment for race. BUN/Creatinine Ratio 25.3 LAB CHEMISTRY METHOD 12/08/2024 10:39 AM [facility] Calcium 10.1 8.5 - 10.5 mg/dL LAB CHEMISTRY METHOD 12/08/2024 10:39 AM [facility] Blood Venous blood specimen / Unknown Venipuncture / Unknown 12/08/2024 7:05 AM EDT 12/08/2024 7:39 AM EDT Oleksandr Worthy MD LAB BLOOD ORDERABLES Final R esult [facility] [address] [place] [address], * (ABNORMAL) Complete blood count (12/08/2024 7:05 AM EDT) WBC 8.3 4.8 - 10.8 K/mcL LAB HEMETOLOGY METHOD 12/08/2024 8:21 AM EDT [facility] LAB RBC 3.20(L) 3.80 - 4.80 M/mcL LAB HEMETOLOGY METHOD 12/08/2024 8:21 AM T [facility] Hemoglobin 10.4(L) 11.5 - 16.0 g/dL LAB HEMETOLOGY METHOD 12/08/2024 8:21 AM [facility] LAB Hematocrit 31.3(L) 35.0 - 47.0 % LAB HEMETOLOGY METHOD 12/08/2024 8:21 AM EDT [facility] LAB MCV 96.9 79.0 - 98.0 FL LAB HEMETOLOGY METHOD [facility] MCH 32.2(H) 27.0 - 32.0 pcg LAB HEMETOLOGY METHOD 12/08/2024 8:21 AM [facility] MCHC 33.2 32.0 - 37.0 g/dL LAB HEMETOLOGY METHOD 12/08/2024 8:21 AM EDT [facility] RDW 15.5(H) 11.0 - 15.0 % LAB HEMETOLOGY METHOD 12/08/2024 8:21 AM EDT [facility] LAB Platelets 199 130 - 400 K/mcL LAB HEMETOLOGY METHOD 12/08/2024 8:21 AM [facility] LAB MPV 9.4 7.0 - 11.0 FL LAB HEMETOLOGY METHOD 12/08/2024 8:21 AM EDT [facility] NRBC 0.0 <1.0 % LAB HEMETOLOGY METHOD 12/08/2024 8:21 AM EDT [facility] NRBC Absolute 0.00 <0.10 K/mcL LAB HEMETOLOGY METHOD 12/08/2024 8:21 AM EDT [facility] Blood Venous blood specimen / Unknown Venipuncture / Unknown 12/08/2024 7:05 AM EDT 12/08/2024 7:39 AM EDT us Oleksandr Worthy MD LAB BLOOD ORDERABLES Final R esult [facility] [address] [place] [address], documented in this encounter Visit Diagnoses Diagnosis Parkinson's disease without dyskinesia, without mention of fluctuations (CMS/HCC V24, CMS/HCC V28) Acute kidney failure, unspecified (CMS/HCC V24) Acute kidney failure, unspecified Anemia, unspecified Essential (primary) hypertension Unspecified essential hypertension documented in this encounter Care Teams Curing Bin Operator Relationship Specialty Start Date End Date Emma Lanza MD [address] [place] [id number] PCP - General Internal Medicine 10/11/21 documented as of this encounter
--- OUTSIDE RECORDS SUMMARY | 2025-01-11 15:39 | XMS_ITS | Clinical Summary ---
Author Organization [facility] Address [address] [place] [address] Care Team Providers Care Executor Of Estate Name Role Phone Emma Lanza MD Primary [...] age to complete this topic Care Teams Executor Of Estate Relationship Specialty Start Date End Date Emma Lanza MD PCP - General Internal Medicine 03/03/19
--- OUTSIDE RECORDS SUMMARY | 2025-01-11 15:39 | XMS_ITS | Encounter Summary ---
Author Organization [facility] Address [address] [facility] [address] [place] [address] Phone Care Team Providers Care Auto Servicer Name Role Phone Emma Lanza MD Primary Care Provider Encounter Details Date Type Department Care Team (Late st Contact Info) Description 08/27/2020 Orders Only [facility] [address] [facility] [address] [place] [address] Jd Fernandez MD [address] [address] Acute renal failure syndrome (HCC); [...] Visit [facility] [address] [address] Jd Fernandez MD [address] [facility] [address] [place] [address] documented as of this encounter [...] EDT) Vitamin D, 25-Hydroxy 54.0(H) (20-50) NG/ML [facility] Comment: Testing performed or reported by [facility], a Service of [facility], [address] [place] [id number] Marianela Tabares MD, [place] Blood specimen (specimen) Venous blood / Unknown 09/12/2020 9:57 AM EDT 09/12/2020 9:58 AM EDT Jd Fernandez MD LAB BLOOD ORDERABLES Final Re sult [facility] * Protein, Total, Random Urine w/Creatinine (Protein/Creat Ratio) (09/12/2020 9:57 AM EDT) Pathologist [facility] Protein/Creatin e Ratio 0.10 (0-0.2) [facility] Protein, Urine 5 MG/DL [facility] Creatinine, Urine 47.3 MG/DL [facility] Comment: Testing performed or reported by [facility], a Service of [facility], [address] [place] [id number] Marianela Tabares MD, [place] Urine specimen (specimen) Urine specimen obtained by clean catch procedure / Unknown 09/12/2020 9:57 AM EDT 09/12/2020 10:00 AM EDT us Jd Fernandez MD LAB URINE ORDERABLES Final Re sult Performing Organization Address City/[facility]/ZIP Co de Phone Number [facility] * Uric Acid (09/12/2020 9:57 AM EDT) Uric Acid 7.4 (1.6-7.6) MG/DL [facility] Comment: Testing performed or reported by [facility], a Service of [facility], [address] [place] [address] Marianela Tabares MD, [place] Blood specimen (specimen) Venous blood / Unknown 09/12/2020 9:57 AM EDT 09/12/2020 9:58 AM EDT us Jd Fernandez MD LAB BLOOD ORDERABLES Final Re sult Performing Organization Address [facility] de Phone Number [facility] * (ABNORMAL) Renal Function Panel (09/12/2020 9:57 AM EDT) Glucose 90 (70-99) MG/DL [facility] BUN 25(H) (8-23) MG/DL [facility] Creatinine 1.6(H) (0.5-1.0) MG/DL [facility] Sodium 128(L) (133-145) MMOL/L [facility] Potassium 4.4 (3.6-5.2) MMOL/L [facility] Chloride 90(L) (98-107) MMOL/L [facility] Bicarbonate (CO2) 28 (22-29) MMOL/L [facility] Anion Gap 10 (4-17) [facility] Albumin 4.2 (3.4-4.8) GM/DL [facility] Calcium 9.7 (8.6-10.5) MG/DL [facility] Phosphorus, Serum 3.9 (2.5-4.5) MG/DL [facility] Est GFR Non 32 ML/MIN/1.7 3 M2 [facility] Comment: Creatinine based estimated glomerular filtration rate (eGFR) is calculated using the Chronic Kidney Disease Epidemiology Collaboration (CKD-EPI). The CKD-EPI creatinine equation has not been validated in children (<18 years), women or in some racial or ethnic subgroups other than Caucasians and Americans. EST GFR 37 ML/MIN/1.7 3 M2 [facility] Comment: Creatinine based estimated glomerular filtration rate (eGFR) is calculated using the Chronic Kidney Disease Epidemiology Collaboration (CKD-EPI). The CKD-EPI creatinine equation has not been validated in children (<18 years), women or in some racial or ethnic subgroups other than Caucasians and Americans. Testing performed or reported by [facility], a Service of [facility], [address] [place] [id number] Marianela Tabares MD, [place] Blood specimen (specimen) Venous blood / Unknown 09/12/2020 9:57 AM EDT 09/12/2020 9:58 AM EDT us Jd Fernandez MD LAB BLOOD ORDERABLES Final Re sult Performing Organization Address [facility] Co de Phone Number [facility] * (ABNORMAL) PTH, Intact (09/12/2020 9:57 AM EDT) PTH, Intact 90(H) (15-65) PG/ML [facility] Comment: Testing performed or reported by [facility], a Service of [facility], [address] [place] [id number] Marianela Tabares MD, [place] Blood specimen (specimen) Venous blood / Unknown 09/12/2020 9:57 AM EDT 09/12/2020 9:58 AM EDT us Jd Fernandez MD LAB BLOOD ORDERABLES Final Re sult Performing Organization Address City/[facility] Co de Phone Number [facility] * Magnesium (09/12/2020 9:57 AM EDT) Magnesium 1.6 (1.6-2.3) mg/dL [facility] Comment: Testing performed or reported by [facility] [place], a Service of [address] [address] Marianela Tabares MD, [place] Blood specimen (specimen) Venous blood / Unknown 09/12/2020 9:57 AM EDT 09/12/2020 9:58 AM EDT us Jd Fernanedz MD LAB BLOOD ORDERABLES Final Re sult [facility] * (ABNORMAL) CBC and Differential (09/12/2020 9:57 AM EDT) White Blood Cells 8.1 (4.0-11.0) K/MM3 [facility] RBC 3.32(L) (4.20-5.40 ) M/MM3 [facility] Hgb 10.4(L) (11.7-15.5 ) GM/DL [facility] Hematocrit 32.3(L) (35.7-45.8 ) % [facility] MCV 97.3 (80.0-100. 0) FL [facility] MCH 31.3 (27.0-34.0 ) PG [facility] MCHC 32.2(L) (33.0-37.0 ) g/dL [facility] Platelets 248 (150-460) K/MM3 [facility] RDW-SD 50.2(H) (<47.0) FL [facility] MPV 8.7(L) (9.4-12.4) FL [facility] nRBC Count 0.0 #/100 WBC'S [facility] NRBC Absolute 0.0 K/MM3 [facility] Neutrophils Abs [...] (0-2) % [facility] Immature Granulocytes 0.7 % [facility] Comment: Testing performed or reported by [facility], a Service of [facility], [address] [place] [phone] Marianela Tabares MD, [place] Blood specimen (specimen) Venous blood / Unknown 09/12/2020 9:57 AM EDT 09/12/2020 9:58 AM EDT us Jd Fernandez MD LAB BLOOD ORDERABLES Final Re sult [facility] documented in this encounter Visit Diagnoses Diagnosis Acute renal failure syndrome (HCC) Stage 3b chronic kidney disease (HCC) Hypertensive renal disease Anemia of chronic disease Vitamin D deficiency, not otherwise specified Other specified renal tubulo-interstitial disease Acute injury of kidney Gout, not otherwise specified Localized edema Hypomagnesemia Hypercalcemia documented in this encounter Care Teams Auto Servicer Relationship Specialty Start Date End Date Emma Lanza MD [address] [place] [phone] PCP - General 02/27/20 documented as of this encounter
--- OUTSIDE RECORDS SUMMARY | 2025-01-11 15:39 | XMS_ITS | Encounter Summary ---
Author Organization [facility] Address [address] [place] [address] Care Team Providers Care Registered Medical Assistant Name Role Phone Emma Lanza MD Primary Care Provider + [phone] Encounter Details Date Type Department Care Team (Late st Contact Info) Description 12/26/2024 Lab Requisition [facility] - Main Lab [address] [facility] [address] [place] [address] Oleksandr Worthy MD [address] [place] [address] Parkinson's disease without dyskinesia, without [...] for your loved ones. For example, child development associate teacher or elderly care for an older [...] Description 04/26/2025 11:00 AM EDT Office Visit [facility] Hematology Oncology [address] [place] [phone] Lauri Lovett MD [address] [place] [phone] 05/01/2025 10:30 AM EDT Office Visit Vascular Surgery - [place] [address] [facility] [address] [place] [phone] Duke Alanis MD [address] [place] [phone] 06/07/2025 11:00 AM EDT Office Visit Gastroenterology - [address] [facility] [address] [place] [address] Max Carvajal MD 299 [facility] [address] [place] [address] documented as of this encounter Visit Diagnoses Diagnosis Parkinson's disease without dyskinesia, without mention of fluctuations (CMS/HCC V24, CMS/HCC V28) Acute kidney failure, unspecified (CMS/HCC V24) Acute kidney failure, unspecified Gastro-esophageal reflux disease without esophagitis Anemia, unspecified Essential (primary) hypertension Unspecified essential hypertension documented in this encounter Care Teams Registered Medical Assistant Relationship Specialty Start Date End Date Emma Lanza MD [address] [place] [address] PCP - General Internal Medicine 10/11/21 documented as of this encounter
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
--- OUTSIDE RECORDS SUMMARY | 2025-01-11 15:39 | XMS_ITS | Encounter Summary ---
Author Organization [facility] Address [address] [place] [address] Care Team Providers Care Design Manager Name Role Phone Emma Lanza MD Primary Care Provider + [phone] Encounter Details Date Type Department Care Team (Late st Contact Info) Description 12/16/[address] [facility] - Main Lab [address] [place] [address] Oleksandr Worthy MD [address] [place] [address] Parkinson's disease without dyskinesia, without [...] your loved ones. For example, child care attendant school or elderly care for an older adult? [...] Description 04/26/2025 11:00 AM EDT Office Visit [facility] Hematology Oncology [address] [place] [phone] Lauri Lovett MD [address] [place] [phone] 05/01/2025 10:30 AM EDT Office Visit Vascular Surgery - [place] [address] [place] [phone] Duke Alanis MD [address] [place] [phone] 06/07/2025 11:00 AM EDT Office Visit Gastroenterology - [address] [facility] [address] [place] [address] Max Carvajal MD 299 [facility] [address] [place] [address] documented as of this encounter Procedures Procedure Name Priority Date/Time Associated Diagnosis Comments COMPLETE BLOOD COUNT Routine 12/16/2024 5:52 AM [...] encounter Results * (ABNORMAL) Basic metabolic panel (12/16/2024 5:52 AM EDT) Sodium 124(L) 133 - 145 mmol/L LAB CHEMISTRY METHOD 12/16/2024 11:40 AM [facility] Potassium 3.2(L) 3.5 - 5.5 mmol/L LAB CHEMISTRY METHOD 12/16/2024 11:40 AM [facility] Chloride 89(L) 96 - 110 mmol/L LAB CHEMISTRY METHOD 12/16/2024 11:40 AM [facility] CO2 23 21 - 32 mmol/L LAB CHEMISTRY METHOD 12/16/2024 11:40 AM [facility] Anion Gap 12(H) 3 - 11 LAB CHEMISTRY METHOD 12/16/2024 11:40 AM [facility] Glucose 90 70 - 100 mg/dL LAB CHEMISTRY METHOD 12/16/2024 11:40 AM [facility] BUN 42(H) 5 - 25 mg/dL LAB CHEMISTRY METHOD 12/16/2024 11:40 AM [facility] Creatinine 2.37(H) 0.50 - 1.10 mg/dL LAB CHEMISTRY METHOD 12/16/2024 11:40 AM [facility] LAB eGFR 21(L) >=60 mL/min/1. 73m2 LAB CHEMISTRY METHOD 12/16/2024 11:40 AM [facility] LAB Comment:Calculation based on the Chronic Kidney Disease Epidemiology Collaboration (CKD-EPI) equation refit without adjustment for race. BUN/Creatinine Ratio 17.7 LAB CHEMISTRY METHOD 12/16/2024 11:40 AM [facility] Calcium 9.2 8.5 - 10.5 mg/dL LAB CHEMISTRY METHOD 12/16/2024 11:40 AM [facility] Blood Venous blood specimen / Unknown Venipuncture / Unknown 12/16/2024 5:52 AM EDT 12/16/2024 9:37 AM EDT Oleksandr Worthy MD LAB BLOOD ORDERABLES Final R esult [facility] [address] [place] [address], * (ABNORMAL) Complete blood count (12/16/2024 5:52 AM EDT) WBC 7.5 4.8 - 10.8 K/mcL LAB HEMETOLOGY METHOD 12/16/2024 11:07 AM EDT [facility] RBC 2.90(L) 3.80 - 4.80 M/mcL LAB HEMETOLOGY METHOD 12/16/2024 11:07 AM EDT [facility] Hemoglobin 9.3(L) 11.5 - 16.0 g/dL LAB HEMETOLOGY METHOD 12/16/2024 11:07 AM EDT [facility] Hematocrit 27.7(L) 35.0 - 47.0 % LAB HEMETOLOGY METHOD 12/16/2024 11:07 AM EDT [facility] MCV 94.5 79.0 - 98.0 FL LAB HEMETOLOGY METHOD 12/16/2024 11:07 AM EDT [facility] MCH 31.7 27.0 - 32.0 pcg LAB HEMETOLOGY METHOD 12/16/2024 11:07 AM EDT [facility] MCHC 33.6 32.0 - 37.0 g/dL LAB HEMETOLOGY METHOD 12/16/2024 11:07 AM EDT [facility] RDW 14.6 11.0 - 15.0 % LAB HEMETOLOGY METHOD 12/16/2024 11:07 AM EDT [facility] Platelets 199 130 - 400 K/mcL LAB HEMETOLOGY METHOD 12/16/2024 11:07 AM EDT [facility] MPV 9.2 7.0 - 11.0 FL LAB HEMETOLOGY METHOD 12/16/2024 11:07 AM EDT [facility] NRBC 0.0 <1.0 % LAB HEMETOLOGY METHOD 12/16/2024 11:07 AM EDT [facility] NRBC Absolute 0.00 <0.10 K/mcL LAB HEMETOLOGY METHOD 12/16/2024 11:07 AM EDT [facility] Blood Venous blood specimen / Unknown Venipuncture / Unknown 12/16/2024 5:52 AM EDT 12/16/2024 9:37 AM EDT us Oleksandr Worthy MD LAB BLOOD ORDERABLES Final R esult [facility] [address] [place] [address], documented in this encounter Visit Diagnoses Diagnosis Parkinson's disease without dyskinesia, without mention of fluctuations (CMS/HCC V24, CMS/HCC V28) Acute kidney failure, unspecified (CMS/HCC V24) Acute kidney failure, unspecified Anemia, unspecified Essential (primary) hypertension Unspecified essential hypertension documented in this encounter Care Teams Design Manager Relationship Specialty Start Date End Date Emma Lanza MD [address] [place] [address] PCP - General Internal Medicine 10/11/21 documented as of this encounter
--- OUTSIDE RECORDS SUMMARY | 2025-01-11 15:39 | XMS_ITS | Encounter Summary ---
Author Organization [facility] Address [address] [place] [address] Care Team Providers Care Supervisor Food Checkers And Cashiers Name Role Phone Emma Lanza MD Primary Care Provider + [phone] Encounter Details Date Type Department Care Team (Late st Contact Info) Description 12/22/2024 Lab Requisition [facility] - Main Lab [address] [place] [address] Oleksandr Worthy MD [address] [place] [address] Acute kidney failure, unspecified (CMS/HCC [...] care for your loved ones. For example, children's minister or elderly care for an older adult? [...] Description 04/26/2025 11:00 AM EDT Office Visit [facility] Hematology Oncology [address] [place] [phone] Lauri Lovett MD [address] [place] [phone] 05/01/2025 10:30 AM EDT Office Visit Vascular Surgery - [place] [address] [place] [address] Duke Alanis MD [address] [place] [phone] 06/07/2025 11:00 AM EDT Office Visit Gastroenterology - [address] [facility] 299 [facility] [address] [place] [phone] Max Carvajal MD 299 [facility] [address] [place] [address] documented as of this encounter Visit Diagnoses Diagnosis Acute kidney failure, unspecified (CMS/HCC V24) Acute kidney failure, unspecified documented in this encounter Care Teams Supervisor Food Checkers And Cashiers Relationship Specialty Start Date End Date Emma Lanza MD [address] [place] [address] PCP - General Internal Medicine 10/11/21 documented as of this encounter
--- OUTSIDE RECORDS SUMMARY | 2025-01-11 15:40 | XMS_ITS | Encounter Summary ---
Author Organization [facility] Address [address] [place] [address] Care Team Providers Care Pastoral Counselor Name Role Phone Emma Lanza MD Primary Care Provider [phone] Encounter Details Date Type Department Care Team (Late st Contact Info) Description 12/29/2024 Lab Requisition [facility] - Main Lab [address] [place] [address] Oleksandr Worthy MD [address] [place] [address] Anemia, unspecified; Essential (primary) hypertension; Parkinsonism, unspecified (CMS/HCC V24, CMS/HCC V28) Social History Tobacco Use Types Packs/Day Years [...] your loved ones. For example, child care leader or elderly care for an older adult? [...] Description 04/26/2025 11:00 AM EDT Office Visit [facility] Hematology Oncology [address] [place] [phone] Lauri Lovett MD [address] [place] [phone] 05/01/2025 10:30 AM EDT Office Visit Vascular Surgery - [place] [address] [place] [phone] Duke Alanis MD [address] [place] [phone] 06/07/2025 11:00 AM EDT Office Visit Gastroenterology - 299 [facility] 299 [facility] [address] [place] [phone] Max Carvajal MD [address] [address] documented as of this encounter Procedures Procedure Name Priority Date/Time Associated Diagnosis Comments COMPLETE BLOOD COUNT Routine 12/29/2024 8:01 AM EST Anemia, unspecified Essential (primary) hypertension Parkinsonism, unspecified ([facility]/HCC V24, CMS/HCC V28) BASIC METABOLIC PANEL Routine 12/29/2024 8:01 AM EST Anemia, unspecified Essential (primary) hypertension Parkinsonism, unspecified (CMS/HCC V24, CMS/HCC V28) documented in this encounter Results * (ABNORMAL) Basic metabolic panel (12/29/2024 8:01 AM EST) Sodium 132(L) 133 - 145 mmol/L LAB CHEMISTRY METHOD 12/29/2024 11:03 AM EST [facility] Potassium 3.5 3.5 - 5.5 mmol/L LAB CHEMISTRY METHOD 12/29/2024 11:03 AM [facility] Chloride 97 96 - 110 mmol/L LAB CHEMISTRY METHOD 12/29/2024 11:03 AM [facility] LAB CO2 26 21 - 32 mmol/L LAB CHEMISTRY METHOD 12/29/2024 11:03 AM [facility] LAB Anion Gap 9 3 - 11 LAB CHEMISTRY METHOD 12/29/2024 11:03 AM [facility] LAB Glucose 78 70 - 100 mg/dL LAB CHEMISTRY METHOD 12/29/2024 11:03 AM [facility] BUN 31(H) 5 - 25 mg/dL LAB CHEMISTRY METHOD 12/29/2024 11:03 AM [facility] Creatinine 2.21(H) 0.50 - 1.10 mg/dL LAB CHEMISTRY METHOD 12/29/2024 11:03 AM [facility] LAB eGFR 22(L) >=60 mL/min/1. 73m2 LAB CHEMISTRY METHOD 12/29/2024 11:03 AM [facility] LAB Comment:Calculation based on the Chronic Kidney Disease Epidemiology Collaboration (CKD-EPI) equation refit without adjustment for race. BUN/Creatinine Ratio 14.0 LAB CHEMISTRY METHOD 12/29/2024 11:03 AM [facility] LAB Calcium 9.3 8.5 - 10.5 mg/dL LAB CHEMISTRY METHOD 12/29/2024 11:03 AM [facility] Blood Venous blood specimen / Unknown Venipuncture / Unknown 12/29/2024 8:01 AM EST 12/29/2024 10:10 AM EST us Oleksandr Worthy MD LAB BLOOD ORDERABLES Final R esult [facility] [address] [place] [address], * (ABNORMAL) Complete blood count (12/29/2024 8:01 AM EST) WBC 6.4 4.8 - 10.8 K/mcL LAB HEMETOLOGY METHOD 12/29/2024 10:35 AM [facility] LAB RBC 2.90(L) 3.80 - 4.80 M/mcL LAB HEMETOLOGY METHOD 12/29/2024 10:35 AM [facility] Hemoglobin 9.2(L) 11.5 - 16.0 g/dL LAB HEMETOLOGY METHOD 12/29/2024 10:35 AM [facility] LAB Hematocrit 26.7(L) 35.0 - 47.0 % LAB HEMETOLOGY METHOD 12/29/2024 10:35 AM [facility] MCV 93.4 79.0 - 98.0 FL LAB HEMETOLOGY METHOD 12/29/2024 10:35 AM [facility] LAB MCH 32.2(H) 27.0 - 32.0 pcg LAB HEMETOLOGY METHOD 12/29/2024 10:35 AM [facility] LAB MCHC 34.5 32.0 - 37.0 g/dL LAB HEMETOLOGY METHOD 12/29/2024 10:35 AM [facility] LAB RDW 14.2 11.0 - 15.0 % LAB HEMETOLOGY METHOD 12/29/2024 10:35 AM [facility] LAB Platelets 190 130 - 400 K/[facility] LAB HEMETOLOGY METHOD 12/29/2024 10:35 AM [facility] LAB MPV 9.1 7.0 - 11.0 FL LAB HEMETOLOGY METHOD 12/29/2024 10:35 AM [facility] LAB NRBC 0.0 <1.0 % LAB HEMETOLOGY METHOD 12/29/2024 10:35 AM [facility] LAB NRBC Absolute 0.00 <0.10 K/mcL LAB HEMETOLOGY METHOD 12/29/2024 10:35 AM EST [facility] Blood Venous blood specimen / Unknown Venipuncture / Unknown 12/29/2024 8:01 AM EST 12/29/2024 10:10 AM EST us Oleksandr Worthy MD LAB BLOOD ORDERABLES Final R esult [facility] [address] [place] [address], documented in this encounter Visit Diagnoses Diagnosis Anemia, unspecified Essential (primary) hypertension Unspecified essential hypertension Parkinsonism, unspecified (CMS/HCC V24, CMS/HCC V28) documented in this encounter Care Teams Pastoral Counselor Relationship Specialty Start Date End Date Emma Lanza MD [address] [place] [address] PCP - General Internal Medicine 10/11/21 documented as of this encounter
--- OUTSIDE RECORDS SUMMARY | 2025-01-11 15:40 | XMS_ITS | Encounter Summary ---
Author Organization [facility] Address [address] [place] [address] Care Team Providers Care Home Care Attendant Name Role Phone Emma Lanza MD Primary Care Provider + [phone] Encounter Details Date Type Department Care Team (Late st Contact Info) Description 01/02/2025 Lab Requisition [facility] - Main Lab [address] [facility] [place] [address] Oleksandr Worthy MD [address] [place] [address] Essential (primary) hypertension Social History Tobacco Use [...] for your loved ones. For example, child support case officer or elderly care for an older adult? [...] Description 04/26/2025 11:00 AM EDT Office Visit [facility] Hematology Oncology [address] [place] [address] Lauri Lovett MD [address] [place] [phone] 05/01/2025 10:30 AM EDT Office Visit Vascular Surgery - [place] [address] [place] [phone] Duke Alanis MD [address] [place] [phone] 06/07/2025 11:00 AM EDT Office Visit Gastroenterology - 299 [facility] 299 [facility] [address] [place] [phone] Max Carvajal MD 299 [facility] [address] [place] [address] documented as of this encounter Procedures Procedure Name Priority Date/Time Associated Diagnosis Comments BASIC METABOLIC PANEL Routine 01/02/2025 6:45 AM EST Essential (primary) hypertension documented in this encounter Results * (ABNORMAL) Basic metabolic panel (01/02/2025 6:45 AM EST) Sodium 133 133 - 145 mmol/L LAB CHEMISTRY METHOD 01/02/2025 11:39 AM EST [facility] Potassium 3.8 3.5 - 5.5 mmol/L LAB CHEMISTRY METHOD 01/02/2025 11:39 AM EST [facility] Chloride 100 96 - 110 mmol/L LAB CHEMISTRY METHOD 01/02/2025 11:39 AM EST [facility] CO2 26 21 - 32 mmol/L LAB CHEMISTRY METHOD 01/02/2025 11:39 AM EST [facility] Anion Gap 7 3 - 11 LAB CHEMISTRY METHOD 01/02/2025 11:39 AM EST [facility] Glucose 97 70 - 100 mg/dL LAB CHEMISTRY METHOD 01/02/2025 11:39 AM [facility] BUN 30(H) 5 - 25 mg/dL LAB CHEMISTRY METHOD 01/02/2025 11:39 AM [facility] Creatinine 2.02(H) 0.50 - 1.10 mg/dL LAB CHEMISTRY METHOD 01/02/2025 11:39 AM [facility] eGFR 25(L) >=60 mL/min/1. 73m2 LAB CHEMISTRY METHOD 01/02/2025 11:39 AM [facility] Comment:Calculation based on the Chronic Kidney Disease Epidemiology Collaboration (CKD-EPI) equation refit without adjustment for race. BUN/Creatinine Ratio 14.9 LAB CHEMISTRY METHOD 01/02/2025 11:39 AM [facility] Calcium 9.1 8.5 - 10.5 mg/dL LAB CHEMISTRY METHOD 01/02/2025 11:39 AM [facility] Blood Venous blood specimen / Unknown Venipuncture / Unknown 01/02/2025 6:45 AM EST 01/02/2025 9:51 AM EST us Oleksandr Worthy MD LAB BLOOD ORDERABLES Final R esult [facility] [address] [place] [address], documented in this encounter Visit Diagnoses Diagnosis Essential (primary) hypertension Unspecified essential hypertension documented in this encounter Care Teams Home Care Attendant Relationship Specialty Start Date End Date Emma Lanza MD [address] [place] [address] PCP - General Internal Medicine 10/11/21 documented as of this encounter
--- OUTSIDE RECORDS SUMMARY | 2025-01-11 15:40 | XMS_ITS | Encounter Summary ---
Author Organization [facility] Address [address] [place] [address] Care Team Providers Care Radio Machinist Name Role Phone Emma Lanza MD Primary Care Provider + [phone] Encounter Details Date Type Department Care Team (Late st Contact Info) Description 12/27/2024 Lab Requisition [facility] - Main Lab [address] [place] [address] Oleksandr Worthy MD [address] [place] [address] Anemia, unspecified; Essential (primary) hypertension; Parkinson's disease without dyskinesia, without mention of fluctuations (CMS/HCC V24, CMS/HCC V28); Acute kidney failure, unspecified (CMS/HCC V24); Gastro-esophageal reflux disease without esophagitis Social History Tobacco Use Types Packs/Day Years [...] your loved ones. For example, child care coordinator or elderly care for an older adult? [...] Description 04/26/2025 11:00 AM EDT Office Visit [facility] Hematology Oncology [address] [place] [phone] Lauri Lovett MD [address] [place] [phone] 05/01/2025 10:30 AM EDT Office Visit Vascular Surgery - [place] [address] [facility] [address] [place] [phone] Duke Alanis MD [address] [place] [phone] 06/07/2025 11:00 AM EDT Office Visit Gastroenterology - [address] [facility] [address] [place] [address] Max Carvajal MD [address] [facility] [address] [place] [address] documented as of this encounter Procedures Procedure Name Priority Date/Time Associated Diagnosis Comments COMPLETE BLOOD COUNT Routine 12/28/2024 8:02 AM [...] (CMS/HCC V24) Gastro-esophageal reflux disease without esophagitis documented in this encounter Results * (ABNORMAL) Complete blood count (12/28/2024 8:02 AM EST) [facility] WBC 6.6 4.8 - 10.8 K/mcL LAB HEMETOLOGY METHOD 12/28/2024 11:02 AM [facility] RBC 3.00(L) 3.80 - 4.80 M/mcL LAB HEMETOLOGY METHOD 12/28/2024 11:02 AM [facility] Hemoglobin 9.5(L) 11.5 - 16.0 g/dL LAB HEMETOLOGY METHOD 12/28/2024 11:02 AM [facility] Hematocrit 28.4(L) 35.0 - 47.0 % LAB HEMETOLOGY METHOD 12/28/2024 11:02 AM [facility] MCV 94.4 79.0 - 98.0 FL LAB HEMETOLOGY METHOD 12/28/2024 11:02 AM [facility] MCH 31.6 27.0 - 32.0 pcg LAB HEMETOLOGY METHOD 12/28/2024 11:02 AM [facility] MCHC 33.5 32.0 - 37.0 g/dL LAB HEMETOLOGY METHOD 12/28/2024 11:02 AM [facility] RDW 14.1 11.0 - 15.0 % LAB HEMETOLOGY METHOD 12/28/2024 11:02 AM [facility] Platelets 194 130 - 400 K/mcL LAB HEMETOLOGY METHOD 12/28/2024 11:02 AM [facility] MPV 8.7 7.0 - 11.0 FL LAB HEMETOLOGY METHOD 12/28/2024 11:02 AM [facility] NRBC 0.0 <1.0 % LAB HEMETOLOGY METHOD 12/28/2024 11:02 AM [facility] NRBC Absolute 0.00 <0.10 K/mcL LAB HEMETOLOGY METHOD 12/28/2024 11:02 AM [facility] Blood Venous blood specimen / Unknown Venipuncture / Unknown 12/28/2024 8:02 AM EST 12/28/2024 10:51 AM EST us Oleksandr Worthy MD LAB BLOOD ORDERABLES Final R esult [facility] [address] [place] [address], * (ABNORMAL) Comprehensive metabolic panel (12/28/2024 8:02 AM EST) Sodium 129(L) 133 - 145 mmol/L LAB CHEMISTRY METHOD 12/28/2024 11:30 AM [facility] Potassium 3.4(L) 3.5 - 5.5 mmol/L LAB CHEMISTRY METHOD 12/28/2024 11:30 AM [facility] Chloride 94(L) 96 - 110 mmol/L LAB CHEMISTRY METHOD 12/28/2024 11:30 AM [facility] CO2 24 21 - 32 mmol/L LAB CHEMISTRY METHOD 12/28/2024 11:30 AM [facility] Anion Gap 11 3 - 11 LAB CHEMISTRY METHOD 12/28/2024 11:30 AM [facility] Glucose 124(H) 70 - 100 mg/dL LAB CHEMISTRY METHOD 12/28/2024 11:30 AM [facility] BUN 28(H) 5 - 25 mg/dL LAB CHEMISTRY METHOD 12/28/2024 11:30 AM [facility] Creatinine 2.31(H) 0.50 - 1.10 mg/dL LAB CHEMISTRY METHOD 12/28/2024 11:30 AM [facility] eGFR 21(L) >=60 mL/min/1. 73m2 LAB CHEMISTRY METHOD 12/28/2024 11:30 AM [facility] Comment:Calculation based on the Chronic Kidney Disease Epidemiology Collaboration (CKD-EPI) equation refit without adjustment for race. BUN/Creatinine Ratio 12.1 LAB CHEMISTRY METHOD 12/28/2024 11:30 AM [facility] Calcium 8.9 8.5 - 10.5 mg/dL LAB CHEMISTRY METHOD 12/28/2024 11:30 AM [facility] AST (SGOT) 17 10 - 42 unit/L LAB CHEMISTRY METHOD 12/28/2024 11:30 AM [facility] ALT (SGPT) 8(L) 10 - 60 unit/L LAB CHEMISTRY METHOD 12/28/2024 11:30 AM [facility] Alkaline Phosphatase 189(H) 42 - 121 unit/L LAB CHEMISTRY METHOD 12/28/2024 11:30 AM [facility] Total Protein 5.8(L) 6.0 - 8.0 g/dL LAB CHEMISTRY METHOD 12/28/2024 11:30 AM [facility] Albumin 3.1(L) 3.2 - 5.0 g/dL LAB CHEMISTRY METHOD 12/28/2024 11:30 AM [facility] Total Bilirubin 0.7 0.0 - 1.4 mg/dL LAB CHEMISTRY METHOD 12/28/2024 11:30 AM [facility] Blood Venous blood specimen / Unknown Venipuncture / Unknown 12/28/2024 8:02 AM EST 12/28/2024 10:55 AM EST us Oleksandr Worthy MD LAB BLOOD ORDERABLES Final R esult [facility] [address] [place] [address], documented in this encounter Visit Diagnoses Diagnosis Anemia, unspecified Essential (primary) hypertension Unspecified essential hypertension Parkinson's disease without dyskinesia, without mention of fluctuations (CMS/HCC V24, CMS/HCC V28) Acute kidney failure, unspecified (CMS/HCC V24) Acute kidney failure, unspecified Gastro-esophageal reflux disease without esophagitis documented in this encounter Care Teams Radio Machinist Relationship Specialty Start Date End Date Emma Lanza MD [address] [place] [address] PCP - General Internal Medicine 10/11/21 documented as of this encounter
== END 2025-01-11 14:07 | disposition home or self-care (01) ==
LOC: HO.HSMS 12:38
PROVIDERS: PCP Internal Medicine; Visit Provider Nurse Practitioner Family
DX: G20.B1 Parkinson's disease with dyskinesia, without mention of fluctuations (principal); R25.2 Cramp and spasm; R25.1 Tremor, unspecified; R41.3 Other amnesia; R29.6 Repeated falls; R44.1 Visual hallucinations
CPT/HCPCS: 99214